=== PATIENT | male | born 1945 | race Caucasian/White ===

== ENCOUNTER → 2018-07-20 | Outpatient (CLI) | payer MEDICARE, OTHER ==
--- NOTE | 2018-07-20 12:53 | Diagnostic Imaging Report ---
Indication: Altered mental status Technique: Contiguous 5 mm thick transaxial imaging of the head obtained in a Siemens Sensation [address] scanner. Soft tissue and bone windows generated. Automatic Exposure Control was utilized. Total Dose length Product (DLP): 1369.[address] Dose Index Volume (CTDIvol): 70.38 mGy Comparison: 11/08/2011 Findings: There is mild prominence of the ventricles, basal cisterns, and cerebral sulci consistent with atrophy. Mild, nonspecific, white matter hypoattenuation is noted throughout the brain consistent with chronic small vessel disease. There is no midline shift, edema, acute hemorrhage, mass effect, or abnormal extra-axial fluid collections. Bones and extra osseous soft tissues are unremarkable. Impression: No acute intracranial bleed, mass effect or edema. Mild atrophy of the brain. Nonspecific white matter hypoattenuation probably due to chronic small vessel disease. The CT scanner at [facility] is accredited by the [employer] and the scans are performed using dose optimization techniques as appropriate to a performed exam including Automatic Exposure control.
== END | disposition home or self-care (01) ==
LOC: CAT 12:09
DX: R51 Headache (principal); G31.9 Degenerative disease of nervous system, unspecified
CPT/HCPCS: 70450

== ENCOUNTER 2018-10-17 02:26 | Inpatient (IN) | payer MEDICARE, OTHER ==
[~2018-10-17] VITALS: Ht 180.3 cm; Wt 60.8 kg
[2018-10-17] VITALS (28 sets, daily range): BP systolic 48–151; BP diastolic 21–96
[2018-10-17] MEDS ORDERED: DOCUSATE SODIU100 M2 ORAL (02:40)
[2018-10-17] MEDS ORDERED: ATORVASTATIN CA10 MG ORAL (02:40)
[2018-10-17] MEDS ORDERED: RISPERIDONE2 MG ORAL (02:40)
[2018-10-17] MEDS ORDERED: PANTOPRAZOLE SO40 MG ORAL (02:40)
[2018-10-17] MEDS ORDERED: ZYPREXA2.5 MG ORAL (02:40)
[2018-10-17] MEDS ORDERED: ASPIR 8181 MG ORAL (02:40)
[2018-10-17] MEDS ORDERED: IPRAT-ALBUT 0.5-3 ML IH (02:40)
--- NOTE | 2018-10-17 02:43 | Emergency Room Report ---
History of Present Illness General Chief Complaint: General Complaint Present Illness HPI Patient is a 73-year-old male brought in by EMS from nursing facility after a diminished oxygen saturation as well as low blood pressure. Patient reportedly had been less responsive than normal. The patient was noted to have oxygen saturation in the 50s. Allergies: Coded Allergies: No Known Allergies (Verified , 11/08/11) Nursing Documentation-PMH Hx Cardiac Problems: No - Anemia, peripheral vascular disease Hx Hypertension: Yes - blind category 5, hyperlipidemia Hx Asthma: No - PNA, difficulty walking, muscle weakness Hx COPD: Yes Hx Gastrointestinal Problems: Yes - gerd Hx Neurological Problems: Yes - schizophrenia Physical Exam Vital Signs Date Time Temp Pulse Resp B/P (MAP) Pulse Ox O2 Delivery O2 Flow Rate FiO2 10/17/18 02:25 98.2 83 14 116/71 84 Nasal Cannula 3.0 General Appearance: severe distress, cachetic, Chronically Ill Eyes: bilateral eye PERRL Neck: supple, limited range of motion Respiratory: decreased breath sounds, wheezing Cardiovascular #1: normal peripheral pulses, regular rate, rhythm, no edema Gastrointestinal: normal inspection, soft, hernia - right inguinal reducible Genitourinary: normal inspection Musculoskeletal: normal inspection, decreased range of motion Neurologic: motor weakness, other - poor alertness, incomprehensible sounds Psychiatric: other - flat affect Skin: normal inspection Procedures Critical Care Time Critical Care Time Patient had a critical medical condition which untreated could potentially result in life or limb threatening injury. Total critical care time excluding procedures approximately 45 minutes. Central Line Central Line : Consent: Emergent Central Line Lumen: triple Maximal Sterile Barrier Tech: yes cap, yes mask, yes sterile gown, yes sterile gloves, yes large sterile sheet, yes hand hygiene, yes chlorhexidine prep Central Line Postion: internal jugular (R) Anesthesia: Lidocaine cc's of anesthesia: 4 Complications: hematoma Central Line Post Position: sutured, good blood return, position confirmed w / CXR Attempts: One Patient Tolerated: Well Intubation Intubation : Consent: Emergent Intubation Method: orotracheal Tube Size (cm): 7.5 Medications: Etomidate Breath Sounds after Intubation: left greater than right Intubation Complications: no complications Post Intubation Xray: Yes Attempts: One Patient Tolerated: Well Complications: None Medical Decision Making Diagnostic Impression: Primary Impression: Respiratory failure Additional Impressions: COPD (chronic obstructive pulmonary disease) Sepsis ER Course Patient was admitted for desaturation and hypotension. Differential included but was not limited to anemia, pneumonia, pneumothorax, myocardial infarction, pericardial effusion, congestive heart failure, acidosis. Because of complexity of patient's case laboratory testing and imaging studies were ordered. The patient was noted to have CO2 retention and ABG.The BiPAP did not improve the patient's ventilation. The patient was subsequently intubated for respiratory failure.Central venous catheter was placed. The patient was started on IV fluids. This had some improvement in his blood pressure. The patient was started on mechanical ventilation. The patient was discussed with Dr. Bob Church for inpatient management due to primary care physician Labs Test 10/17/18 02:43 10/17/18 02:55 10/17/18 03:10 Arterial Blood pH 7.296 (7.350-7.450) Arterial Blood Partial Pressure CO2 99.5 mmHg (35.0-45.0) Arterial Blood Partial Pressure O2 58.5 mmHg (75.0-100.0) Arterial Blood HCO3 47.4 mmol/L (22.0-26.0) Arterial Blood Oxygen Saturation 87.9 % (95-100) Arterial Blood Base Excess 16.4 (-2-2) Chidi Test Positive White Blood Count 7.2 K/UL (4.8-10.8) Red Blood Count 4.82 M/UL (4.70-6.10) Hemoglobin 13.2 G/DL (14.2-18.0) Hematocrit 43.4 % (42.0-52.0) Mean Corpuscular Volume 90 FL (80-99) Mean Corpuscular Hemoglobin 27.4 PG (27.0-31.0) Mean Corpuscular Hemoglobin Concent 30.5 G/DL (32.0-36.0) Red Cell Distribution Width 13.6 % (11.6-14.8) Platelet Count 145 K/UL (150-450) Mean Platelet Volume 6.3 FL (6.5-10.1) Neutrophils (%) (Auto) 78.1 % (45.0-75.0) Lymphocytes (%) (Auto) 11.1 % (20.0-45.0) Monocytes (%) (Auto) 8.8 % (1.0-10.0) Eosinophils (%) (Auto) 1.3 % (0.0-3.0) Basophils (%) (Auto) 0.7 % (0.0-2.0) Sodium Level 149 MMOL/L (136-145) Potassium Level 4.7 MMOL/L (3.5-5.1) Chloride Level 104 MMOL/L (98-107) Carbon Dioxide Level 47 MMOL/L (21-32) Blood Urea Nitrogen 28 mg/dL (7-18) Creatinine 0.7 MG/DL (0.55-1.30) Estimat Glomerular Filtration Rate mL/min (>60) Glucose Level 123 MG/DL (74-106) Lactic Acid Level 1.10 mmol/L (0.4-2.0) Calcium Level 10.0 MG/DL (8.5-10.1) Phosphorus Level 3.6 MG/DL (2.5-4.9) Magnesium Level 2.1 MG/DL (1.8-2.4) Total Bilirubin 0.5 MG/DL (0.2-1.0) Aspartate Amino Transf (AST/SGOT) 19 U/L (15-37) Alanine Aminotransferase (ALT/SGPT) 28 U/L (12-78) Alkaline Phosphatase 80 U/L (46-116) Total Creatine Kinase 14 U/L (26-308) Creatine Kinase MB 0.7 NG/ML (0.0-3.6) Creatine Kinase MB Relative Index 5.0 Troponin I 0.031 ng/mL (0.000-0.056) Pro-B-Type Natriuretic Peptide 198 pg/mL (0-125) Total Protein 8.0 G/DL (6.4-8.2) Albumin 3.6 G/DL (3.4-5.0) Globulin 4.4 g/dL Albumin/Globulin Ratio 0.8 (1.0-2.7) Urine Color Pale yellow Urine Appearance Clear Urine pH 8 (4.5-8.0) Urine Specific [place] 1.010 (1.005-1.035) Urine Protein 1+ (NEGATIVE) Urine Glucose (UA) Negative (NEGATIVE) Urine Ketones Negative (NEGATIVE) Urine Blood 4+ (NEGATIVE) Urine Nitrite Negative (NEGATIVE) Urine Bilirubin Negative (NEGATIVE) Urine Urobilinogen 1 MG/DL (0.0-1.0) Urine Leukocyte Esterase 1+ (NEGATIVE) Urine RBC 30-40 /HPF (0 - 0) Urine WBC 2-4 /HPF (0 - 0) Urine Squamous Epithelial Cells None /LPF (NONE/OCC) Urine Bacteria Few /HPF (NONE) EKG Diagnostic Results Rate: tachycardiac Rhythm: NSR ST Segments: no acute changes Last Vital Signs Date Time Temp Pulse Resp B/P (MAP) Pulse Ox O2 Delivery O2 Flow Rate FiO2 10/17/18 02:25 98.2 83 14 116/71 84 Nasal Cannula 3.0 Status: unchanged Disposition: ADMITTED INPATIENT Condition: Critical Edmund Cat MD Oct 17, 2018 02:43
[2018-10-17 03:19] LABS: BASOPHILS % (AUTO) 0.7 % (0.0-2.0); EOSINOPHILS % (AUTO) 1.3 % (0.0-3.0); HEMATOCRIT 43.4 % (42.0-52.0); HEMOGLOBIN 13.2 G/DL (14.2-18.0); LYMPHOCYTES % (AUTO) 11.1 % (20.0-45.0); MEAN CORPUSCULAR VOLUME 90 FL (80-99); MONOCYTES % (AUTO) 8.8 % (1.0-10.0); NEUTROPHILS % (AUTO) 78.1 % (45.0-75.0); PLATELET COUNT 145 K/UL (150-450); RED BLOOD COUNT 4.82 M/UL (4.70-6.10); RED CELL DISTRIBUTION WIDTH 13.6 % (11.6-14.8); WHITE BLOOD COUNT 7.2 K/UL (4.8-10.8)
[2018-10-17 03:20] LABS: APPEARANCE,URINE CLEAR; BILIRUBIN, URINE NEGATIVE (NEGATIVE); COLOR,URINE PALE YELLOW; GLUCOSE, URINE (UA) NEGATIVE (NEGATIVE); KETONES,URINE NEGATIVE (NEGATIVE); LEUKOCYTE ESTERASE ,URINE 1+ (NEGATIVE); NITRITE,URINE NEGATIVE (NEGATIVE); PH,URINE 8 (4.5-8.0); PROTEIN,URINE 1+ (NEGATIVE); UROBILINOGEN,URINE 1 MG/DL (0.0-1.0)
[2018-10-17 03:41] LABS: BLOOD UREA NITROGEN 28 mg/dL (7-18); CHLORIDE 104 MMOL/L (98-107); CREATININE 0.7 MG/DL (0.55-1.30); POTASSIUM 4.7 MMOL/L (3.5-5.1); SODIUM 149 MMOL/L (136-145)
[2018-10-17 03:45] LABS: CARBON DIOXIDE 47 MMOL/L (21-32)
[2018-10-17 03:46] LABS: ALANINE AMINOTRANSFERASE 28 U/L (12-78); ALBUMIN 3.6 G/DL (3.4-5.0); ALBUMIN/GLOBULIN RATIO 0.8 (1.0-2.7); ALKALINE PHOSPHATASE 80 U/L (46-116); ASPARTATE AMINO TRANSFERASE 19 U/L (15-37); BILIRUBIN,TOTAL 0.5 MG/DL (0.2-1.0); CKMB 0.7 NG/ML (0.0-3.6); CREATINE KINASE 14 U/L (26-308); PHOSPHORUS 3.6 MG/DL (2.5-4.9)
[2018-10-17] MEDS: Etomidate 40mg/20ml Inj IV ONE ×2 (04:13→05:18)
[2018-10-17] MEDS: LORazepam Inj 2mg/ml 1ml IV ONE ×2 (05:15→05:18)
[2018-10-17] MEDS: Ampicillin/Sulbactam Sod 3 GM in NS 110 ML IVPB ONE ×2 (05:18→05:20)
--- NOTE | 2018-10-17 07:52 | Cardiology Progress Note ---
Assessment/Plan Assessment/Plan The patient is seen and examined, full consult report will be dictated shortly. Objective Last 24 Hour Vital Signs Date Time Temp Pulse Resp B/P (MAP) Pulse Ox O2 Delivery O2 Flow Rate FiO2 10/17/18 06:55 75 16 100 10/17/18 06:48 100 10/17/18 05:08 70 16 Mechanical Ventilator 100 10/17/18 05:00 70 16 100 10/17/18 04:30 100 10/17/18 04:15 70 16 48/21 Endotracheal Tube 15.0 10/17/18 02:35 83 14 Nasal Cannula 3.0 10/17/18 02:35 98.2 68 20 128/62 90 Nasal Cannula 3.0 10/17/18 02:25 98.2 83 14 116/71 84 Nasal Cannula 3.0 Intake and Output 10/16/18 10/17/18 18:59 06:59 Intake Total 1000 ml Balance 1000 ml Intake IV Total 1000 ml Laboratory Tests Test 10/17/18 02:43 10/17/18 02:55 10/17/18 03:10 10/17/18 05:07 Arterial Blood pH 7.296 (7.350-7.450) 7.407 (7.350-7.450) Arterial Blood Partial Pressure CO2 99.5 mmHg (35.0-45.0) *H 64.1 mmHg (35.0-45.0) *H Arterial Blood Partial Pressure O2 58.5 mmHg (75.0-100.0) L 597.8 mmHg (75.0-100.0) H Arterial Blood HCO3 47.4 mmol/L (22.0-26.0) *H 39.4 mmol/L (22.0-26.0) H Arterial Blood Oxygen Saturation 87.9 % (95-100) *L 99.6 % (95-100) Arterial Blood Base Excess 16.4 (-2-2) *H 12.4 (-2-2) *H Chidi Test Positive Positive White Blood Count 7.2 K/UL (4.8-10.8) Red Blood Count 4.82 M/UL (4.70-6.10) Hemoglobin 13.2 G/DL (14.2-18.0) L Hematocrit 43.4 % (42.0-52.0) Mean Corpuscular Volume 90 FL (80-99) Mean Corpuscular Hemoglobin 27.4 PG (27.0-31.0) Mean Corpuscular Hemoglobin Concent 30.5 G/DL (32.0-36.0) L Red Cell Distribution Width 13.6 % (11.6-14.8) Platelet Count 145 K/UL (150-450) L Mean Platelet Volume 6.3 FL (6.5-10.1) L Neutrophils (%) (Auto) 78.1 % (45.0-75.0) H Lymphocytes (%) (Auto) 11.1 % (20.0-45.0) L Monocytes (%) (Auto) 8.8 % (1.0-10.0) Eosinophils (%) (Auto) 1.3 % (0.0-3.0) Basophils (%) (Auto) 0.7 % (0.0-2.0) Sodium Level 149 MMOL/L (136-145) H Potassium Level 4.7 MMOL/L (3.5-5.1) Chloride Level 104 MMOL/L (98-107) Carbon Dioxide Level 47 MMOL/L (21-32) *H Blood Urea Nitrogen 28 mg/dL (7-18) H Creatinine 0.7 MG/DL (0.55-1.30) Estimat Glomerular Filtration Rate mL/min (>60) Glucose Level 123 MG/DL (74-106) H Lactic Acid Level 1.10 mmol/L (0.4-2.0) Calcium Level 10.0 MG/DL (8.5-10.1) Phosphorus Level 3.6 MG/DL (2.5-4.9) Magnesium Level 2.1 MG/DL (1.8-2.4) Total Bilirubin 0.5 MG/DL (0.2-1.0) Aspartate Amino Transf (AST/SGOT) 19 U/L (15-37) Alanine Aminotransferase (ALT/SGPT) 28 U/L (12-78) Alkaline Phosphatase 80 U/L (46-116) Total Creatine Kinase 14 U/L (26-308) L Creatine Kinase MB 0.7 NG/ML (0.0-3.6) Creatine Kinase MB Relative Index 5.0 Troponin I 0.031 ng/mL (0.000-0.056) Pro-B-Type Natriuretic Peptide 198 pg/mL (0-125) H Total Protein 8.0 G/DL (6.4-8.2) Albumin 3.6 G/DL (3.4-5.0) Globulin 4.4 g/dL Albumin/Globulin Ratio 0.8 (1.0-2.7) L Urine Color Pale yellow Urine Appearance Clear Urine pH 8 (4.5-8.0) Urine Specific [place] 1.010 (1.005-1.035) Urine Protein 1+ (NEGATIVE) H Urine Glucose (UA) Negative (NEGATIVE) Urine Ketones Negative (NEGATIVE) Urine Blood 4+ (NEGATIVE) H Urine Nitrite Negative (NEGATIVE) Urine Bilirubin Negative (NEGATIVE) Urine Urobilinogen 1 MG/DL (0.0-1.0) H Urine Leukocyte Esterase 1+ (NEGATIVE) H Urine RBC 30-40 /HPF (0 - 0) H Urine WBC 2-4 /HPF (0 - 0) Urine Squamous Epithelial Cells None /LPF (NONE/OCC) Urine Bacteria Few /HPF (NONE) Toby Sy MD Oct 17, 2018 07:52
[2018-10-17] MEDS ORDERED: D5 1/2NS 1,000 ML IV SCH (08:21)
[2018-10-17] MEDS ORDERED: Nitroglycerin Subl 0.4mg tab SL PRN (08:30)
[2018-10-17] MEDS ORDERED: Morphine Sulfate 2mg/ml Inj IVP PRN ×2 (08:30)
[2018-10-17] MEDS ORDERED: Albuterol/Ipratropium 3ml neb HHN PRN ×2 (08:30)
[2018-10-17] MEDS ORDERED: Morphine Sulfate 4mg/ml Inj (IV/IM USE ONLY) IVP PRN (08:30)
[2018-10-17] MEDS ORDERED: Sodium Chloride 500ML 500 ML IV ONE ×2 (08:45→22:30)
[2018-10-17] MEDS: Heparin 5000 units/ml inj SUBQ SCH ×2 (09:00→20:48)
--- NOTE | 2018-10-17 09:41 | Diagnostic Imaging Report ---
Indication: Altered mental status Technique: Contiguous 5 mm thick transaxial imaging of the head obtained in a Siemens Sensation [address] scanner. Soft tissue and bone windows generated. Automatic Exposure Control was utilized. Total Dose length Product (DLP): 1460.[address] Dose Index Volume (CTDIvol): 70.38 mGy Comparison: 07/20/2018 Findings: There is mild prominence of the ventricles, basal cisterns, and cerebral sulci consistent with atrophy. Mild, nonspecific, white matter hypoattenuation is noted throughout the brain consistent with chronic small vessel disease. There is no midline shift, edema, acute hemorrhage, mass effect, or abnormal extra-axial fluid collections. Bones and extra osseous soft tissues are unremarkable. Impression: No acute intracranial bleed, mass effect or edema. Mild atrophy of the brain. Nonspecific white matter hypoattenuation probably due to chronic small vessel disease. The CT scanner at [facility] is accredited by the [employer] and the scans are performed using dose optimization techniques as appropriate to a performed exam including Automatic Exposure control.
[2018-10-17] MEDS ORDERED: TYLENOL EXTRA500 MG ORAL (09:58)
[2018-10-17] MEDS ORDERED: MILK OF MA400 MG/51 ORAL (09:58)
--- NOTE | 2018-10-17 10:36 | Diagnostic Imaging Report ---
Indication: NG tube placement Comparison: None Single view of the abdomen obtained Findings: The NG tube proximal port and tip are in the stomach. IMPRESSION: NG tube in good position
--- NOTE | 2018-10-17 10:37 | Diagnostic Imaging Report ---
Indication: Dyspnea Comparison: Earlier same day A single view chest radiograph was obtained. Findings: Endotracheal tube is several centimeters above the jing in good position. There is a right jugular central venous catheter with the tip projected over the SVC. The lungs are hyperexpanded. Heart size is normal. No infiltrate identified. Deformity of the ribs in the upper part of the chest wall noted on the right. Presumably traumatic. Bones are osteopenic. IMPRESSION: Tubes and lines satisfactory. COPD
--- NOTE | 2018-10-17 11:01 | Consultation ---
History of Present Illness General Date patient seen: Oct 17, 2018 Chief Complaint: General Complaint Present Illness HPI 73-year-old male with hx of psychosis, Emphysema, brought in by EMS from nursing facility after a diminished oxygen saturation as well as low blood pressure. Patient reportedly had been less responsive than normal. The patient was noted to have oxygen saturation in the 50s. He was intubated in ER and received Iv fluids to support the BP and transferred to ICU. Allergies: Coded Allergies: No Known Allergies (Verified , 11/08/11) Medication History Scheduled Aspirin* (Aspir 81*), 81 MG ORAL DAILY, (Reported) Atorvastatin Calcium* (Lipitor*), 10 MG ORAL BEDTIME, (Reported) Docusate Sodium (Docusate Sodium), 100 MG ORAL TWICE A DAY, (Reported) Ipratropium/Albuterol Sulfate (Iprat-Albut 0.5-3(2.5) Mg/3 Ml), 3 ML IH TID, ( Reported) Magnesium Hydroxide* (Milk Of Magnesia*), 30 ML ORAL DAILY, (Reported) Olanzapine* (Zyprexa*), 2.5 MG ORAL DAILY, (Reported) Pantoprazole* (Pantoprazole*), 40 MG ORAL DAILY, (Reported) Risperidone (Risperidone), 2 MG ORAL BID, (Reported) Scheduled PRN Acetaminophen* (Tylenol Extra Strength*), 650 MG ORAL Q4HR PRN for Mild Pain/ Temp > 100.5, (Reported) Patient History Healthcare decision maker Charis Ellislacye (sister) Resuscitation status Full Code Advanced Directive on File No Past Medical/Surgical History Past Medical/Surgical History: (1) Psychoses (2) COPD (chronic obstructive pulmonary disease) Review of Systems All Other Systems: negative except mentioned in HPI Physical Exam General Appearance: cachetic Lines, tubes and drains: peripheral HEENT: normocephalic, atraumatic Respiratory/Chest: chest wall non-tender, rhonchi - left, rhonchi - right Breasts: no masses Cardiovascular/Chest: normal rate, regularly irregular Genitourinary/Rectal: normal genital exam Extremities: normal range of motion, non-tender Last 24 Hour Vital Signs Date Time Temp Pulse Resp B/P (MAP) Pulse Ox O2 Delivery O2 Flow Rate FiO2 10/17/18 10:28 30 10/17/18 10:00 66 16 100/51 (67) 94 10/17/18 09:23 77 16 50 10/17/18 09:15 50 10/17/18 09:00 62 16 88/52 (64) 100 10/17/18 08:00 65 15 91/39 (56) 95 10/17/18 07:22 50 10/17/18 07:00 98.4 63 18 104/59 (74) 93 10/17/18 07:00 Endotracheal Tube 10/17/18 06:55 75 16 100 10/17/18 06:48 100 10/17/18 05:08 70 16 Mechanical Ventilator 100 10/17/18 05:00 70 16 100 10/17/18 04:30 100 10/17/18 04:15 70 16 48/21 Endotracheal Tube 15.0 10/17/18 02:35 83 14 Nasal Cannula 3.0 10/17/18 02:35 98.2 68 20 128/62 90 Nasal Cannula 3.0 10/17/18 02:25 98.2 83 14 116/71 84 Nasal Cannula 3.0 Intake and Output 10/16/18 10/17/18 18:59 06:59 Intake Total 1000 ml Balance 1000 ml Intake IV Total 1000 ml Laboratory Tests Test 10/17/18 02:43 10/17/18 02:55 10/17/18 03:10 10/17/18 05:07 Arterial Blood pH 7.296 (7.350-7.450) 7.407 (7.350-7.450) Arterial Blood Partial Pressure CO2 99.5 mmHg (35.0-45.0) *H 64.1 mmHg (35.0-45.0) *H Arterial Blood Partial Pressure O2 58.5 mmHg (75.0-100.0) L 597.8 mmHg (75.0-100.0) H Arterial Blood HCO3 47.4 mmol/L (22.0-26.0) *H 39.4 mmol/L (22.0-26.0) H Arterial Blood Oxygen Saturation 87.9 % (95-100) *L 99.6 % (95-100) Arterial Blood Base Excess 16.4 (-2-2) *H 12.4 (-2-2) *H Chidi Test Positive Positive White Blood Count 7.2 K/UL (4.8-10.8) Red Blood Count 4.82 M/UL (4.70-6.10) Hemoglobin 13.2 G/DL (14.2-18.0) L Hematocrit 43.4 % (42.0-52.0) Mean Corpuscular Volume 90 FL (80-99) Mean Corpuscular Hemoglobin 27.4 PG (27.0-31.0) Mean Corpuscular Hemoglobin Concent 30.5 G/DL (32.0-36.0) L Red Cell Distribution Width 13.6 % (11.6-14.8) Platelet Count 145 K/UL (150-450) L Mean Platelet Volume 6.3 FL (6.5-10.1) L Neutrophils (%) (Auto) 78.1 % (45.0-75.0) H Lymphocytes (%) (Auto) 11.1 % (20.0-45.0) L Monocytes (%) (Auto) 8.8 % (1.0-10.0) Eosinophils (%) (Auto) 1.3 % (0.0-3.0) Basophils (%) (Auto) 0.7 % (0.0-2.0) Sodium Level 149 MMOL/L (136-145) H Potassium Level 4.7 MMOL/L (3.5-5.1) Chloride Level 104 MMOL/L (98-107) Carbon Dioxide Level 47 MMOL/L (21-32) *H Blood Urea Nitrogen 28 mg/dL (7-18) H Creatinine 0.7 MG/DL (0.55-1.30) Estimat Glomerular Filtration Rate mL/min (>60) Glucose Level 123 MG/DL (74-106) H Lactic Acid Level 1.10 mmol/L (0.4-2.0) Calcium Level 10.0 MG/DL (8.5-10.1) Phosphorus Level 3.6 MG/DL (2.5-4.9) Magnesium Level 2.1 MG/DL (1.8-2.4) Total Bilirubin 0.5 MG/DL (0.2-1.0) Aspartate Amino Transf (AST/SGOT) 19 U/L (15-37) Alanine Aminotransferase (ALT/SGPT) 28 U/L (12-78) Alkaline Phosphatase 80 U/L (46-116) Total Creatine Kinase 14 U/L (26-308) L Creatine Kinase MB 0.7 NG/ML (0.0-3.6) Creatine Kinase MB Relative Index 5.0 Troponin I 0.031 ng/mL (0.000-0.056) Pro-B-Type Natriuretic Peptide 198 pg/mL (0-125) H Total Protein 8.0 G/DL (6.4-8.2) Albumin 3.6 G/DL (3.4-5.0) Globulin 4.4 g/dL Albumin/Globulin Ratio 0.8 (1.0-2.7) L Urine Color Pale yellow Urine Appearance Clear Urine pH 8 (4.5-8.0) Urine Specific [place] 1.010 (1.005-1.035) Urine Protein 1+ (NEGATIVE) H Urine Glucose (UA) Negative (NEGATIVE) Urine Ketones Negative (NEGATIVE) Urine Blood 4+ (NEGATIVE) H Urine Nitrite Negative (NEGATIVE) Urine Bilirubin Negative (NEGATIVE) Urine Urobilinogen 1 MG/DL (0.0-1.0) H Urine Leukocyte Esterase 1+ (NEGATIVE) H Urine RBC 30-40 /HPF (0 - 0) H Urine WBC 2-4 /HPF (0 - 0) Urine Squamous Epithelial Cells None /LPF (NONE/OCC) Urine Bacteria Few /HPF (NONE) Test 10/17/18 10:20 Arterial Blood pH 7.510 (7.350-7.450) Arterial Blood Partial Pressure CO2 37.8 mmHg (35.0-45.0) Arterial Blood Partial Pressure O2 227.5 mmHg (75.0-100.0) H Arterial Blood HCO3 30.0 mmol/L (22.0-26.0) H Arterial Blood Oxygen Saturation 97.9 % (95-100) Arterial Blood Base Excess 6.7 (-2-2) H Chidi Test Positive Microbiology Date/Time Source Procedure Growth Status 10/17/18 06:45 Rectum Received Height (Feet): 5 Height (Inches): 11.00 Weight (Pounds): 125 Medications Current Medications Medications (Trade) Dose Ordered Sig/Nkechi Route PRN Reason Start Time Stop Time Status Last Admin Dose Admin Albuterol/ Ipratropium (Albuterol/ Ipratropium) 3 ml Q4H PRN HHN dyspnea 10/17/18 08:30 10/22/18 08:29 Dextrose (Dextrose 50%) 25 ml Q30M PRN IV Hypoglycemia 10/17/18 08:30 11/16/18 08:23 Dextrose (Dextrose 50%) 50 ml Q30M PRN IV hypoglycemia 10/17/18 08:30 11/16/18 08:29 Dextrose/Sodium Chloride 1,000 ml @ 50 mls/hr Q20H IV 10/17/18 08:21 11/16/18 08:20 10/17/18 09:10 Heparin Sodium (Porcine) (Heparin 5000 units/ml) 5,000 units EVERY 12 HOURS SUBQ 10/17/18 09:00 11/16/18 08:59 Insulin Aspart (NovoLOG) BEFORE MEALS AND HS SUBQ 10/17/18 11:30 11/16/18 11:29 Lorazepam (Ativan 2mg/ml 1ml) 2 mg Q4H PRN IV For Anxiety 10/17/18 08:30 10/24/18 08:29 Methylprednisolone Sodium Succinate (Solu-MEDROL) 60 mg EVERY 6 HOURS IV 10/17/18 12:00 11/16/18 11:59 Morphine Sulfate (Morphine Sulfate) 2 mg Q4H PRN IVP MODERATE PAIN 10/17/18 08:30 10/24/18 08:29 Morphine Sulfate (Morphine Sulfate) 4 mg Q4H PRN IVP SEVERE PAIN 10/17/18 08:30 10/24/18 08:29 Nitroglycerin (Ntg) 0.4 mg Q5M X 3 DOSES PRN SL Prn Chest Pain 10/17/18 08:30 11/16/18 08:29 Norepinephrine Bitartrate 4 mg/ Dextrose 250 ml @ 0 mls/hr Q24H IV 10/17/18 06:00 11/16/18 05:59 Ondansetron HCl (Zofran) 4 mg Q6H PRN IVP Nausea & Vomiting 10/17/18 08:30 11/16/18 08:29 Piperacillin Sod/ Tazobactam Sod 3.375 gm/Sodium Chloride 110 ml @ 27.5 mls/hr EVERY 8 HOURS IVPB 10/17/18 14:00 10/22/18 13:59 Assessment/Plan Problem List: (1) Acute respiratory failure ICD Codes: J96.00 - Acute respiratory failure, unspecified whether with hypoxia or hypercapnia SNOMED: 58256424 (2) COPD (chronic obstructive pulmonary disease) ICD Codes: J44.9 - Chronic obstructive pulmonary disease, unspecified SNOMED: 99840352 (3) Protein-calorie malnutrition, severe ICD Codes: E43 - Unspecified severe protein-calorie malnutrition SNOMED: 322320394 (4) Psychoses ICD Codes: F29 - Unspecified psychosis not due to a substance or known physiological condition SNOMED: 21950981 Respiratory: monitor respiratory rate, adjust FIO2, CXR Cardiac: continue to monitor HR/BP Renal: F/U I&O, check electrolytes Infectious Disease: check cultures, continue antibiotics Gastrointestinal: start feedings Endocrine: monitor blood sugar Hematologic: monitor H/H Neurologic: PRN Ativan Affect: PRN ativan Prophylaxis: Protonix Time Spent (Minutes): 40 Notes Reviewed: cardio Discussed with: consultants Melquiades Junior MD Oct 17, 2018 11:01
--- NOTE | 2018-10-17 11:46 | Diagnostic Imaging Report ---
Indication: Dyspnea Comparison: 11/12/2011 A single view chest radiograph was obtained. Findings: Lungs are hyperexpanded. Heart size is normal. Aorta is ectatic. There is deformity of the right upper chest wall again noted. IMPRESSION: No change from the prior examination. COPD
[2018-10-17] MEDS: Solu-MEDROL 125mg Inj IV SCH ×3 (12:15→23:40)
[2018-10-17] MEDS: NovoLOG Insulin Flexpen SUBQ SCH ×3 (12:16→20:17)
[2018-10-17] MEDS ORDERED: Piperacillin/Tazobactam 2.25 GM in D5W 55 ML IV SCH (14:00)
[2018-10-17] MEDS ORDERED: Zoysn 3.37gm in NS 100ML IVPB SCH (14:00)
--- NOTE | 2018-10-17 14:02 | Consultation ---
History of Present Illness General Date patient seen: Oct 17, 2018 Chief Complaint: General Complaint Present Illness HPI 73 y/o M with hx of schizophrenia, emphysema/COPD, blindness, PVD, HLD, PNA, GERD, SNF resident presents to ED on 10/17 with hypoxia to 50s, hypotension and lethargy. In the ER was intubated; BP responded to IVFs. Admitted to ICU. Afebrile no leukocytosis CXR with no acute disease. Allergies: Coded Allergies: No Known Allergies (Verified , 11/08/11) Medication History Scheduled Aspirin* (Aspir 81*), 81 MG ORAL DAILY, (Reported) Atorvastatin Calcium* (Lipitor*), 10 MG ORAL BEDTIME, (Reported) Docusate Sodium (Docusate Sodium), 100 MG ORAL TWICE A DAY, (Reported) Ipratropium/Albuterol Sulfate (Iprat-Albut 0.5-3(2.5) Mg/3 Ml), 3 ML IH TID, ( Reported) Magnesium Hydroxide* (Milk Of Magnesia*), 30 ML ORAL DAILY, (Reported) Olanzapine* (Zyprexa*), 2.5 MG ORAL DAILY, (Reported) Pantoprazole* (Pantoprazole*), 40 MG ORAL DAILY, (Reported) Risperidone (Risperidone), 2 MG ORAL BID, (Reported) Scheduled PRN Acetaminophen* (Tylenol Extra Strength*), 650 MG ORAL Q4HR PRN for Mild Pain/ Temp > 100.5, (Reported) Patient History Healthcare decision maker Farnaz Vizcaino (sister) Resuscitation status Full Code Advanced Directive on File No Patient History Narrative Pmhx: as above Shx: reviewed Fhx: non contributory Review of Systems All Other Systems: negative except mentioned in HPI Physical Exam Physical Exam Narrative General Appearance: severe distress, cachetic, Chronically Ill Neck: limited range of motion Respiratory: decreased breath sounds, wheezing Cardiovascular #1: normal peripheral pulses, regular rate, rhythm, no edema Gastrointestinal: normal inspection Neurologic: normal inspection, alert, oriented x3 Skin: normal inspection Last 24 Hour Vital Signs Date Time Temp Pulse Resp B/P (MAP) Pulse Ox O2 Delivery O2 Flow Rate FiO2 10/17/18 13:00 99.3 66 16 101/64 (76) 100 10/17/18 12:55 67 16 30 10/17/18 12:00 Endotracheal Tube 10/17/18 12:00 65 16 91/56 (68) 98 10/17/18 11:00 70 17 88/50 (63) 98 10/17/18 10:35 64 16 30 10/17/18 10:28 30 10/17/18 10:00 66 16 100/51 (67) 94 10/17/18 09:23 77 16 50 10/17/18 09:15 50 10/17/18 09:00 62 16 88/52 (64) 100 10/17/18 08:05 66 10/17/18 08:00 65 15 91/39 (56) 95 10/17/18 07:22 50 10/17/18 07:00 98.4 63 18 104/59 (74) 93 10/17/18 07:00 Endotracheal Tube 10/17/18 06:55 75 16 100 10/17/18 06:48 100 10/17/18 05:08 70 16 Mechanical Ventilator 100 10/17/18 05:00 70 16 100 10/17/18 04:30 100 10/17/18 04:15 70 16 48/21 Endotracheal Tube 15.0 10/17/18 02:35 83 14 Nasal Cannula 3.0 10/17/18 02:35 98.2 68 20 128/62 90 Nasal Cannula 3.0 10/17/18 02:25 98.2 83 14 116/71 84 Nasal Cannula 3.0 Intake and Output 10/16/18 10/17/18 19:00 07:00 Intake Total 1000 ml Balance 1000 ml Intake IV Total 1000 ml Laboratory Tests Test 10/17/18 02:43 10/17/18 02:55 10/17/18 03:10 10/17/18 05:07 Arterial Blood pH 7.296 (7.350-7.450) 7.407 (7.350-7.450) Arterial Blood Partial Pressure CO2 99.5 mmHg (35.0-45.0) *H 64.1 mmHg (35.0-45.0) *H Arterial Blood Partial Pressure O2 58.5 mmHg (75.0-100.0) L 597.8 mmHg (75.0-100.0) H Arterial Blood HCO3 47.4 mmol/L (22.0-26.0) *H 39.4 mmol/L (22.0-26.0) H Arterial Blood Oxygen Saturation 87.9 % (95-100) *L 99.6 % (95-100) Arterial Blood Base Excess 16.4 (-2-2) *H 12.4 (-2-2) *H Chidi Test Positive Positive White Blood Count 7.2 K/UL (4.8-10.8) Red Blood Count 4.82 M/UL (4.70-6.10) Hemoglobin 13.2 G/DL (14.2-18.0) L Hematocrit 43.4 % (42.0-52.0) Mean Corpuscular Volume 90 FL (80-99) Mean Corpuscular Hemoglobin 27.4 PG (27.0-31.0) Mean Corpuscular Hemoglobin Concent 30.5 G/DL (32.0-36.0) L Red Cell Distribution Width 13.6 % (11.6-14.8) Platelet Count 145 K/UL (150-450) L Mean Platelet Volume 6.3 FL (6.5-10.1) L Neutrophils (%) (Auto) 78.1 % (45.0-75.0) H Lymphocytes (%) (Auto) 11.1 % (20.0-45.0) L Monocytes (%) (Auto) 8.8 % (1.0-10.0) Eosinophils (%) (Auto) 1.3 % (0.0-3.0) Basophils (%) (Auto) 0.7 % (0.0-2.0) Sodium Level 149 MMOL/L (136-145) H Potassium Level 4.7 MMOL/L (3.5-5.1) Chloride Level 104 MMOL/L (98-107) Carbon Dioxide Level 47 MMOL/L (21-32) *H Blood Urea Nitrogen 28 mg/dL (7-18) H Creatinine 0.7 MG/DL (0.55-1.30) Estimat Glomerular Filtration Rate mL/min (>60) Glucose Level 123 MG/DL (74-106) H Lactic Acid Level 1.10 mmol/L (0.4-2.0) Calcium Level 10.0 MG/DL (8.5-10.1) Phosphorus Level 3.6 MG/DL (2.5-4.9) Magnesium Level 2.1 MG/DL (1.8-2.4) Total Bilirubin 0.5 MG/DL (0.2-1.0) Aspartate Amino Transf (AST/SGOT) 19 U/L (15-37) Alanine Aminotransferase (ALT/SGPT) 28 U/L (12-78) Alkaline Phosphatase 80 U/L (46-116) Total Creatine Kinase 14 U/L (26-308) L Creatine Kinase MB 0.7 NG/ML (0.0-3.6) Creatine Kinase MB Relative Index 5.0 Troponin I 0.031 ng/mL (0.000-0.056) Pro-B-Type Natriuretic Peptide 198 pg/mL (0-125) H Total Protein 8.0 G/DL (6.4-8.2) Albumin 3.6 G/DL (3.4-5.0) Globulin 4.4 g/dL Albumin/Globulin Ratio 0.8 (1.0-2.7) L Urine Color Pale yellow Urine Appearance Clear Urine pH 8 (4.5-8.0) Urine Specific [place] 1.010 (1.005-1.035) Urine Protein 1+ (NEGATIVE) H Urine Glucose (UA) Negative (NEGATIVE) Urine Ketones Negative (NEGATIVE) Urine Blood 4+ (NEGATIVE) H Urine Nitrite Negative (NEGATIVE) Urine Bilirubin Negative (NEGATIVE) Urine Urobilinogen 1 MG/DL (0.0-1.0) H Urine Leukocyte Esterase 1+ (NEGATIVE) H Urine RBC 30-40 /HPF (0 - 0) H Urine WBC 2-4 /HPF (0 - 0) Urine Squamous Epithelial Cells None /LPF (NONE/OCC) Urine Bacteria Few /HPF (NONE) Test 10/17/18 10:20 Arterial Blood pH 7.510 (7.350-7.450) Arterial Blood Partial Pressure CO2 37.8 mmHg (35.0-45.0) Arterial Blood Partial Pressure O2 227.5 mmHg (75.0-100.0) H Arterial Blood HCO3 30.0 mmol/L (22.0-26.0) H Arterial Blood Oxygen Saturation 97.9 % (95-100) Arterial Blood Base Excess 6.7 (-2-2) H Chidi Test Positive Microbiology Date/Time Source Procedure Growth Status 10/17/18 06:45 Rectum Received Height (Feet): 5 Height (Inches): 11.00 Weight (Pounds): 125 Medications Current Medications Medications (Trade) Dose Ordered Sig/Nkechi Route PRN Reason Start Time Stop Time Status Last Admin Dose Admin Albuterol/ Ipratropium (Albuterol/ Ipratropium) 3 ml Q4H PRN HHN dyspnea 10/17/18 08:30 10/22/18 08:29 Dextrose (Dextrose 50%) 25 ml Q30M PRN IV Hypoglycemia 10/17/18 08:30 11/16/18 08:23 Dextrose (Dextrose 50%) 50 ml Q30M PRN IV hypoglycemia 10/17/18 08:30 11/16/18 08:29 Dextrose/Sodium Chloride 1,000 ml @ 50 mls/hr Q20H IV 10/17/18 08:21 11/16/18 08:20 10/17/18 09:10 Heparin Sodium (Porcine) (Heparin 5000 units/ml) 5,000 units EVERY 12 HOURS SUBQ 10/17/18 09:00 11/16/18 08:59 Insulin Aspart (NovoLOG) BEFORE MEALS AND HS SUBQ 10/17/18 11:30 11/16/18 11:29 10/17/18 12:16 Lorazepam (Ativan 2mg/ml 1ml) 2 mg Q4H PRN IV For Anxiety 10/17/18 08:30 10/24/18 08:29 Methylprednisolone Sodium Succinate (Solu-MEDROL) 60 mg EVERY 6 HOURS IV 10/17/18 12:00 11/16/18 11:59 10/17/18 12:15 Morphine Sulfate (Morphine Sulfate) 2 mg Q4H PRN IVP MODERATE PAIN 10/17/18 08:30 10/24/18 08:29 Morphine Sulfate (Morphine Sulfate) 4 mg Q4H PRN IVP SEVERE PAIN 10/17/18 08:30 10/24/18 08:29 Nitroglycerin (Ntg) 0.4 mg Q5M X 3 DOSES PRN SL Prn Chest Pain 10/17/18 08:30 11/16/18 08:29 Norepinephrine Bitartrate 4 mg/ Dextrose 250 ml @ 0 mls/hr Q24H IV 10/17/18 06:00 11/16/18 05:59 Ondansetron HCl (Zofran) 4 mg Q6H PRN IVP Nausea & Vomiting 10/17/18 08:30 11/16/18 08:29 Piperacillin Sod/ Tazobactam Sod 3.375 gm/Sodium Chloride 110 ml @ 27.5 mls/hr EVERY 8 HOURS IVPB 10/17/18 14:00 10/22/18 13:59 10/17/18 13:47 Assessment/Plan Assessment/Plan Abx: Unasyn x 1 10/17 Zosyn 10/17- Assessment: Acute hypoxic respiratory s/p intubation 10/17 COPD exacerbation- no evidence of PNA. Ro Influenza Afebrile No leukocytosis schizophrenia emphysema/COPD blindness PVD HLD PNA GERD SNF resident Plan: -Switch Zosyn #1 to Levaquin for COPD exacerbation -Empiric Tamiflu pending influenza sc -f/u cx -Monitor CBC/CMP, temperatures -ETT care -Aspiration precautions Thank you for this consultation. Will continue to follow along with you. Discussed with Chio Stephens M.D. Oct 17, 2018 14:02
--- NOTE | 2018-10-17 15:15 | Consultation ---
DATE OF CONSULTATION: 10/17/2018 CARDIOLOGY CONSULTATION CONSULTING PHYSICIAN: Toby Sy M.D. REFERRING PHYSICIAN: Bob Church D.O. REASON FOR CONSULTATION: Management of shortness of breath. HISTORY OF PRESENT ILLNESS: The patient is a very unfortunate 73-year-old gentleman, brought by EMS from nursing facility after he was found to have shortness of breath with diminished oxygen saturation as well as hypotension. The patient also appears to be less responsive than usual. His oxygen saturation was in 50s. Upon arrival to the emergency department, blood pressure was 116/71 mmHg and heart rate of 83, oxygen saturation was 84 on 3 liters. The patient had a emergent intubation in the emergency department for severe hypoxemic hypercarbic respiratory failure. Initial 12-lead electrocardiogram revealed sinus rhythm at a rate of 70 with bifascicular block including right bundle-branch block as well as left anterior fascicular block. The patient was diagnosed with the acute exacerbation of COPD and was transferred to intensive care unit for further management and assessment. Cardiology consultation was made at request of Dr. Church for assessment of dyspnea and rule out. PAST MEDICAL HISTORY: Anemia, COPD, peripheral vascular disease, blindness, hyperlipidemia, history of pneumonia, history of gait imbalance, history of gastroesophageal reflux disease, history of schizophrenia. PAST SURGICAL HISTORY: No surgeries done in the past. MEDICATIONS: List of medications in the correction facility includes aspirin 81 mg p.o. daily, atorvastatin 10 mg p.o. at bedtime, Colace 100 mg p.o. twice daily, Atrovent and albuterol three times daily, Zyprexa 2.5 mg p.o. daily, pantoprazole 40 mg p.o. daily, and risperidone 2 mg p.o. twice daily. ALLERGIES: No known drug allergies. FAMILY HISTORY: No premature coronary artery disease or arrhythmogenic in the first-degree relatives according to the records. REVIEW OF SYSTEMS: Currently the patient is intubated. A 12-system review cannot be obtained. PHYSICAL EXAMINATION: VITAL SIGNS: Blood pressure was 116/71, pulse of 83, respiration 14, temperature 98.2 degrees Fahrenheit, and O2 saturation 94% on 3 liters of oxygen. GENERAL: The patient is a chronically ill-appearing, currently intubated, awake, not following commands, not maintaining eye contact. HEENT: Atraumatic and normocephalic. Anicteric. Bitemporal wasting. NECK: JVP cannot be assessed due to positive inspiratory pressure from the ventilator. No carotid bruit. CVS: Normal S1 and S2. Regular rate and rhythm. No murmurs, gallops, or rubs. Distant heart sounds. PMI is at fourth intercostal space in midclavicular line. LUNGS: Diminished breath sounds throughout both lungs. ABDOMEN: Soft, nontender, and nondistended. No hepatosplenomegaly. Positive bowel sounds. EXTREMITIES: No evidence of edema, clubbing, or cyanosis. LABORATORY FINDINGS: WBC 7.2, hemoglobin 13.2, hematocrit of 43.4, and platelet count 145. Sodium 149, potassium is 4.7, chloride 104, bicarbonate 47, BUN of 28, creatinine 0.7, glucose is 123 and calcium is 10. Magnesium 2.1. Troponin-I 0.031. ProBNP is 198. Blood gas was a pH of 7.29, pCO2 of 99.5, pO2 58.5, bicarbonate 47.4, O2 saturation 87.9%. DIAGNOSTIC DATA: Chest x-ray shows a very small cardiac silhouette, hyperinflated lung, emphysematous changes, no evidence of pulmonary edema. ASSESSMENT AND PLAN: The patient is a 73-year-old gentleman seen in Cardiology consultation at request of Dr. Church. 1. Dyspnea most likely secondary to acute exacerbation of COPD leading to acute respiratory failure. The patient is hypercapnic, hypoxic, respiratory failure required intubation earlier. We will obtain 2D echocardiography for assessment of LV systolic and diastolic function and evaluation of hemodynamics. It appears that the patient has some evidence of free water deficit according to the electrolyte that may require hydration. 2. The patient benefit from a normal saline 500 mL IV bolus and then we will start hypotonic fluid and half NS at 60 mL per hour. 3. We will continue with daily chemistry and try to keep the mean arterial pressure above 65 mmHg. Total amount of time spent in evaluation of this patient in the intensive care unit of [facility] review of the old records, discussing the plan of care with the nursing staff and primary care physician was . I would like to thank, Dr. Church, for allowing me to participate in the care of this patient. Toby Sy M.D. DR: Jennifer JOB#: [id number] CC:
--- NOTE | 2018-10-17 16:01 | Cardiology Report ---
APPROVED REPORT EXAM: Two-dimensional and M-mode echocardiogram with Doppler and color Doppler. INDICATION Ventricular function M-Mode DIMENSIONS IVSd1.2 (0.7-1.1cm)Left Atrium (MM)2.9 (1.6-4.0cm) LVDd3.1 (3.5-5.6cm)Aortic Root3.0 (2.0-3.7cm) PWd1.2 (0.7-1.1cm)Aortic Cusp Exc.1.9 (1.5-2.0cm) LVDs1.4 (2.5-4.0cm) PWs1.6 cm Technically difficult and limited study due to poor acoustic windows. All images obtained from subcostal view. Study quality precludes accurate assessment of regional wall motion. Normal left ventricular chamber size, systolic function and wall motion. Left ventricular ejection fraction estimated to be 65 %. Mild left ventricular hypertrophy. No evidence of pericardial effusion. All other cardiac chamber sizes appear to be within normal limits. Focal aortic valve sclerosis with adequate cusp excursion. Mildly thickened mitral valve leaflets with normal excursion. Mildy mitral annulus and aortic root calcification. Normal pulmonic valve structure. Normal tricuspid valve structure. IVC dilated at 2.8 cm without physiological collapse, suggestive of increased RA pressure. A color flow and spectral Doppler study was performed and revealed: No aortic insufficiency. Trace mitral regurgitation. Mitral diastolic velocities suggest mild left ventricular diastolic dysfunction (Grade I). Mild tricuspid regurgitation. Tricuspid systolic velocities suggests peak right ventricular systolic pressure of 51 mmHg, consistent with moderate pulmonary hypertension. No pulmonic regurgitation present.
--- NOTE | 2018-10-17 17:35 | Cardiology Report ---
APPROVED REPORT EKG Measurement Heart [id number] IL [id number] [id number] Normal sinus rhythm Left axis deviation Septal infarct, age undetermined Abnormal ECG
[2018-10-17] MEDS: Oseltamivir 75mg cap ORAL SCH (20:16)
[2018-10-17] MEDS: DOPamine 400mg/250ml 250 ML IV SCH (23:17)
--- NOTE | 2018-10-17 23:30 | History and Physical Report ---
DATE OF ADMISSION: 10/17/2018 TIME SEEN: On 10/17/2018 at 2 p.m. CONSULTANTS: 1. Melquiades Junior M.D. 2. Toby Sy M.D. 3. Rakan Solomon M.D. CHIEF COMPLAINT: Respiratory failure, shock, COPD. BRIEF HISTORY: This is a 73-year-old female from [facility] who presents to [facility] with history of increased shortness of breath for two days, diagnosed with exacerbation of COPD and went into respiratory failure, and is currently intubated, admitted to ICU. The patient is intubated, sedated, lethargic in ICU. Therefore, history is obtained from the chart. REVIEW OF SYSTEMS: Unavailable. PAST MEDICAL HISTORY: Includes COPD, psychosis, malnutrition. PAST SURGICAL HISTORY: Unknown. ALLERGIES: Denies. MEDICATIONS: Include Zosyn, methylprednisolone, insulin, heparin, albuterol, nitroglycerin, lorazepam, morphine, and norepinephrine. SOCIAL HISTORY: Unable to obtain secondary to the patient's condition. PHYSICAL EXAMINATION: GENERAL: Calm, lethargic, intubated, sedated in bed, nonverbal, VITAL SIGNS: Show temperature is 98.9, pulse 66, respirations 16, blood pressure 109/64. CARDIOVASCULAR: No murmur. LUNGS: Poor air exchange. ABDOMEN: Bowel sounds distant. EXTREMITIES: Show no cyanosis, clubbing, or edema. NEUROLOGIC: The patient is flaccid in bed, not responding to verbal commands. LABORATORY DATA: Laboratories at this time show hemoglobin 13.2, platelets 145,000, otherwise CBC is normal. Sodium 149, CO2 47, BUN 28, glucose 123, otherwise BMP is normal. Urinalysis shows 4+ blood, 1+ leukocyte esterase. ASSESSMENT: Respiratory failure, COPD exacerbation, UTI, sepsis, shock, psychosis, malnutrition. PLAN: Vent per Pulmonary. Antibiotic per Infectious Disease. Blood pressure control. Dietary followup. Resume home medications. CBC and BMP in the morning. Bob Church D.O. DR: Dereck JOB#: [id number] CC:
[2018-10-17] MEDS: LORazepam Inj 2mg/ml 1ml IV PRN (23:39)
[2018-10-18] VITALS (47 sets, daily range): BP systolic 77–135; BP diastolic 39–86
[2018-10-18] MEDS: D5 1/2NS 1,000 ML IV SCH ×2 (03:30→20:10)
[2018-10-18 05:03] LABS: HEMATOCRIT 37.6 % (42.0-52.0); HEMOGLOBIN 11.8 G/DL (14.2-18.0); MEAN CORPUSCULAR VOLUME 88 FL (80-99); PLATELET COUNT 107 K/UL (150-450); RED BLOOD COUNT 4.27 M/UL (4.70-6.10); RED CELL DISTRIBUTION WIDTH 13.7 % (11.6-14.8); WHITE BLOOD COUNT 7.1 K/UL (4.8-10.8)
[2018-10-18 05:22] LABS: ALANINE AMINOTRANSFERASE 22 U/L (12-78); ALBUMIN/GLOBULIN RATIO 0.8 (1.0-2.7); ALKALINE PHOSPHATASE 67 U/L (46-116); ANION GAP 7 mmol/L (5-15); ASPARTATE AMINO TRANSFERASE 26 U/L (15-37); BILIRUBIN,TOTAL 0.9 MG/DL (0.2-1.0); BLOOD UREA NITROGEN 25 mg/dL (7-18); CALCIUM 9.5 MG/DL (8.5-10.1); CARBON DIOXIDE 29 MMOL/L (21-32); CHLORIDE 112 MMOL/L (98-107); CREATININE 0.6 MG/DL (0.55-1.30); PHOSPHORUS 1.7 MG/DL (2.5-4.9); POTASSIUM 3.4 MMOL/L (3.5-5.1); SODIUM 148 MMOL/L (136-145)
[2018-10-18] MEDS: Solu-MEDROL 125mg Inj IV SCH (05:52)
[2018-10-18] MEDS: NovoLOG Insulin Flexpen SUBQ SCH ×4 (05:54→21:08)
[2018-10-18] MEDS: Oseltamivir 75mg cap ORAL SCH (09:46)
[2018-10-18] MEDS: Heparin 5000 units/ml inj SUBQ SCH ×2 (10:13→20:58)
--- NOTE | 2018-10-18 10:21 | Pulmonolgy Critical Care Note ---
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, renal Discussed with: nurses, consultants, case monitormanager file - Objective Last 24 Hour Vital Signs Date Time Temp Pulse Resp B/P (MAP) Pulse Ox O2 Delivery O2 Flow Rate FiO2 10/18/18 09:19 51 16 25 10/18/18 08:00 Endotracheal Tube 10/18/18 08:00 25 10/18/18 07:02 50 16 25 10/18/18 06:30 49 16 113/52 (72) 100 10/18/18 06:00 112/52 10/18/18 06:00 49 16 122/55 (77) 100 10/18/18 05:30 51 16 116/57 (76) 100 10/18/18 05:09 58 18 25 10/18/18 05:00 52 16 105/55 (72) 100 10/18/18 05:00 114/54 10/18/18 04:30 56 17 108/47 (67) 100 10/18/18 04:00 Endotracheal Tube 10/18/18 04:00 25 10/18/18 04:00 108/47 10/18/18 04:00 54 10/18/18 04:00 98.7 57 16 112/52 (72) 100 10/18/18 03:30 52 16 124/62 (82) 100 10/18/18 03:30 62 19 108/47 (67) 100 10/18/18 03:20 55 16 25 10/18/18 03:00 52 16 124/62 (82) 100 10/18/18 03:00 124/62 10/18/18 02:30 54 16 122/59 (80) 100 10/18/18 02:00 144/62 10/18/18 02:00 48 16 120/59 (79) 99 11/29/18 01:30 53 18 124/54 (77) 99 10/18/18 01:00 55 18 125/57 (79) 99 10/18/18 01:00 118/54 10/18/18 00:49 52 16 25 10/18/18 00:33 54 16 135/59 (84) 100 10/18/18 00:00 58 16 112/50 (70) 100 10/18/18 00:00 111/53 10/18/18 00:00 Endotracheal Tube 10/17/18 23:45 66 21 112/51 (71) 100 10/17/18 23:30 59 17 120/65 (83) 100 10/17/18 23:17 116/49 10/17/18 23:15 60 19 114/55 (74) 100 10/17/18 23:00 58 16 112/50 (70) 100 10/17/18 22:47 55 16 25 10/17/18 22:00 54 19 115/62 (79) 100 10/17/18 21:20 48 16 30 10/17/18 21:00 48 16 98/65 (76) 100 10/17/18 20:00 99.6 54 16 134/96 (109) 100 10/17/18 20:00 30 10/17/18 20:00 53 10/17/18 20:00 Endotracheal Tube 10/17/18 19:18 51 16 30 10/17/18 19:00 56 16 122/69 (86) 100 10/17/18 18:00 60 14 122/52 (75) 98 10/17/18 17:00 98.5 55 15 147/82 (103) 100 10/17/18 16:49 64 16 30 10/17/18 16:00 58 16 95/58 (70) 100 10/17/18 16:00 30 10/17/18 16:00 Endotracheal Tube 10/17/18 15:23 57 10/17/18 15:00 69 15 101/56 (71) 93 10/17/18 14:55 61 16 30 10/17/18 14:00 58 16 102/62 (75) 99 10/17/18 13:00 99.3 66 16 101/64 (76) 100 10/17/18 12:55 67 16 30 10/17/18 12:01 68 11/28/18 12:00 65 16 91/56 (68) 98 10/17/18 12:00 Endotracheal Tube 10/17/18 11:00 70 17 88/50 (63) 98 10/17/18 10:35 64 16 30 10/17/18 10:31 Endotracheal Tube 10/17/18 10:28 30 Status: sedated Condition: critical HEENT: atraumatic Neck: full ROM Lungs: rhonchi Heart: HR/BP stable Abdomen: soft, non-tender Extremities: no C/C/E Decubiti: location Micro: Microbiology Date/Time Source Procedure Growth Status 10/17/18 18:00 Nasopharynx Influenza Types A,B Antigen (ADALBERTO) - Final Complete 10/17/18 10:00 Sputum Induced Gram Stain Pending Resulted 10/17/18 10:00 Sputum Induced Sputum Culture - Preliminary NORMAL UPPER RESPIRATORY FUENTES AT 24 ... Resulted 10/17/18 06:45 Rectum Received 10/17/18 03:05 Arm Right Blood Culture - Preliminary NO GROWTH AFTER 24 HOURS Resulted 10/17/18 02:55 Arm Left Blood Culture - Preliminary NO GROWTH AFTER 24 HOURS Resulted Accucheck: 168 Critical Care - Subjective ROS Limited/Unobtainable: Yes ICU Day: 2 Condition: critical FI02: 25 Vent Support Breath Rate: 16 Vent Support Mode: AC Vent Tidal Volume: 600 Sputum Amount: Small PEEP: 0.0 PIP: 31 Tube Feeding Amount: 25 I&O: Intake and Output 10/17/18 10/18/18 18:59 06:59 Intake Total 556.0 ml 310.02 ml Output Total 745 ml 1410 ml Balance -189.0 ml -1099.98 ml Intake Free Water 30 ml IV Total 496.0 ml 70.02 ml Tube Feeding 60 ml 180 ml Other 30 ml Output Urine Total 745 ml 1410 ml # Bowel Movements 1 CXR: ET in good position ET-Tube: 7.5 ET Position: 22 Labs: Laboratory Tests Test 10/17/18 10:20 10/18/18 04:20 10/18/18 07:28 Arterial Blood pH 7.510 (7.350-7.450) 7.470 (7.350-7.450) Arterial Blood Partial Pressure CO2 37.8 mmHg (35.0-45.0) 38.8 mmHg (35.0-45.0) Arterial Blood Partial Pressure O2 227.5 mmHg (75.0-100.0) H 66.8 mmHg (75.0-100.0) L Arterial Blood HCO3 30.0 mmol/L (22.0-26.0) H 28.1 mmol/L (22.0-26.0) H Arterial Blood Oxygen Saturation 97.9 % (95-100) 94.1 % (95-100) L Arterial Blood Base Excess 6.7 (-2-2) H 4.3 (-2-2) H Chidi Test Positive Positive White Blood Count 7.1 K/UL (4.8-10.8) Red Blood Count 4.27 M/UL (4.70-6.10) L Hemoglobin 11.8 G/DL (14.2-18.0) L Hematocrit 37.6 % (42.0-52.0) L Mean Corpuscular Volume 88 FL (80-99) Mean Corpuscular Hemoglobin 27.6 PG (27.0-31.0) Mean Corpuscular Hemoglobin Concent 31.4 G/DL (32.0-36.0) L Red Cell Distribution Width 13.7 % (11.6-14.8) Platelet Count 107 K/UL (150-450) L Mean Platelet Volume 6.8 FL (6.5-10.1) Neutrophils (%) (Auto) % (45.0-75.0) Lymphocytes (%) (Auto) % (20.0-45.0) Monocytes (%) (Auto) % (1.0-10.0) Eosinophils (%) (Auto) % (0.0-3.0) Basophils (%) (Auto) % (0.0-2.0) Erythrocyte Sedimentation Rate 40 MM/HR (0-20) H Sodium Level 148 MMOL/L (136-145) H Potassium Level 3.4 MMOL/L (3.5-5.1) L Chloride Level 112 MMOL/L (98-107) H Carbon Dioxide Level 29 MMOL/L (21-32) Anion Gap 7 mmol/L (5-15) Blood Urea Nitrogen 25 mg/dL (7-18) H Creatinine 0.6 MG/DL (0.55-1.30) Estimat Glomerular Filtration Rate mL/min (>60) Glucose Level 184 MG/DL (74-106) H Calcium Level 9.5 MG/DL (8.5-10.1) Phosphorus Level 1.7 MG/DL (2.5-4.9) L Magnesium Level 1.9 MG/DL (1.8-2.4) Total Bilirubin 0.9 MG/DL (0.2-1.0) Aspartate Amino Transf (AST/SGOT) 26 U/L (15-37) Alanine Aminotransferase (ALT/SGPT) 22 U/L (12-78) Alkaline Phosphatase 67 U/L (46-116) C-Reactive Protein, Quantitative 3.3 mg/dL (0.00-0.90) H Total Protein 7.0 G/DL (6.4-8.2) Albumin 3.0 G/DL (3.4-5.0) L Globulin 4.0 g/dL Albumin/Globulin Ratio 0.8 (1.0-2.7) L Melquiades Junior MD Oct 18, 2018 10:21
--- NOTE | 2018-10-18 11:06 | Diagnostic Imaging Report ---
Indication: Dyspnea Technique: One view of the chest Comparison: 10/17/2018 Findings: Stable satisfactory position of endotracheal tube. Right jugular central venous catheter is again demonstrated. The lungs are hyperinflated. Interim placement nasogastric tube, tip projecting beyond the edge of image, final position indeterminate. Old fracture deformities of the right upper ribs are again noted. Impression: Hyperinflation, as in COPD, unchanged over one day. Interim nasogastric intubation, tip position indeterminate, not included on image. No acute process. Other stable findings as described
[2018-10-18] MEDS ORDERED: Heparin 2000 units/Ns 1000ml INJ PRN (11:15)
[2018-10-18] MEDS ORDERED: Lidocaine 1% Plain 30 ml INJ PRN (11:15)
--- NOTE | 2018-10-18 12:45 | Infectious Diseases Prog Note ---
Assessment/Plan Assessment/Plan Assessment: Acute hypoxic respiratory s/p intubation 10/17 COPD exacerbation- no evidence of PNA. \ -influenza sc neg -sp cx NTD -CXR: Hyperinflation, as in COPD, unchanged over one day. No acute process. Afebrile No leukocytosis schizophrenia emphysema/COPD blindness PVD HLD PNA GERD SN[facility] resident Plan: -Continue Levaquin #2/5 for COPD exacerbation -d/c Empiric Tamiflu #2 -10/17 SP Zosyn #1, Unasyn x1 -f/u cx -Monitor CBC/CMP, temperatures -ETT care -Aspiration precautions Thank you for this consultation. Will continue to follow along with you. Discussed with RN. Subjective Allergies: Coded Allergies: No Known Allergies (Verified , 11/08/11) Subjective afebrile intubated no leukocytosis Objective Vital Signs Last 24 Hour Vital Signs Date Time Temp Pulse Resp B/P (MAP) Pulse Ox O2 Delivery O2 Flow Rate FiO2 10/18/18 12:00 53 16 77/45 (56) 100 10/18/18 11:30 51 16 110/56 (74) 100 10/18/18 11:00 48 16 125/86 (99) 100 10/18/18 10:53 54 16 25 10/18/18 10:30 47 16 111/51 (71) 100 10/18/18 10:00 48 16 108/63 (78) 100 10/18/18 09:30 49 16 124/53 (76) 100 10/18/18 09:19 51 16 25 10/18/18 09:00 52 17 106/85 (92) 83 10/18/18 08:30 47 16 113/60 (77) 100 10/18/18 08:00 Endotracheal Tube 10/18/18 08:00 25 10/18/18 08:00 48 16 104/52 (69) 100 10/18/18 07:30 52 16 120/72 (88) 100 10/18/18 07:02 50 16 25 10/18/18 07:00 97.7 48 16 115/52 (73) 100 10/18/18 06:30 49 16 113/52 (72) 100 10/18/18 06:00 112/52 10/18/18 06:00 49 16 122/55 (77) 100 11/29/18 05:30 51 16 116/57 (76) 100 10/18/18 05:09 58 18 25 10/18/18 05:00 52 16 105/55 (72) 100 10/18/18 05:00 114/54 10/18/18 04:30 56 17 108/47 (67) 100 10/18/18 04:00 Endotracheal Tube 10/18/18 04:00 25 10/18/18 04:00 108/47 10/18/18 04:00 54 10/18/18 04:00 98.7 57 16 112/52 (72) 100 10/18/18 03:30 52 16 124/62 (82) 100 10/18/18 03:30 62 19 108/47 (67) 100 10/18/18 03:20 55 16 25 10/18/18 03:00 52 16 124/62 (82) 100 10/18/18 03:00 124/62 10/18/18 02:30 54 16 122/59 (80) 100 10/18/18 02:00 144/62 10/18/18 02:00 48 16 120/59 (79) 99 10/18/18 01:30 53 18 124/54 (77) 99 10/18/18 01:00 55 18 125/57 (79) 99 10/18/18 01:00 118/54 10/18/18 00:49 52 16 25 10/18/18 00:33 54 16 135/59 (84) 100 10/18/18 00:00 58 16 112/50 (70) 100 10/18/18 00:00 111/53 10/18/18 00:00 Endotracheal Tube 10/17/18 23:45 66 21 112/51 (71) 100 10/17/18 23:30 59 17 120/65 (83) 100 10/17/18 23:17 116/49 10/17/18 23:15 60 19 114/55 (74) 100 10/17/18 23:00 58 16 112/50 (70) 100 10/17/18 22:47 55 16 25 10/17/18 22:00 54 19 115/62 (79) 100 10/17/18 21:20 48 16 30 10/17/18 21:00 48 16 98/65 (76) 100 10/17/18 20:00 99.6 54 16 134/96 (109) 100 10/17/18 20:00 30 10/17/18 20:00 53 10/17/18 20:00 Endotracheal Tube 10/17/18 19:18 51 16 30 10/17/18 19:00 56 16 122/69 (86) 100 10/17/18 18:00 60 14 122/52 (75) 98 10/17/18 17:00 98.5 55 15 147/82 (103) 100 10/17/18 16:49 64 16 30 10/17/18 16:00 58 16 95/58 (70) 100 10/17/18 16:00 30 10/17/18 16:00 Endotracheal Tube 10/17/18 15:23 57 10/17/18 15:00 69 15 101/56 (71) 93 10/17/18 14:55 61 16 30 10/17/18 14:00 58 16 102/62 (75) 99 10/17/18 13:00 99.3 66 16 101/64 (76) 100 10/17/18 12:55 67 16 30 Height (Feet): 5 Height (Inches): 11.00 Weight (Pounds): 129 Microbiology Date/Time Source Procedure Growth Status 10/17/18 18:00 Nasopharynx Influenza Types A,B Antigen (ADALBERTO) - Final Complete 10/17/18 10:00 Sputum Induced Gram Stain - Final Resulted 10/17/18 10:00 Sputum Induced Sputum Culture - Preliminary NORMAL UPPER RESPIRATORY FUENTES AT 24 ... Resulted 10/17/18 06:45 Rectum Received 10/17/18 03:05 Arm Right Blood Culture - Preliminary NO GROWTH AFTER 24 HOURS Resulted 10/17/18 02:55 Arm Left Blood Culture - Preliminary NO GROWTH AFTER 24 HOURS Resulted Laboratory Tests Test 10/18/18 04:20 10/18/18 07:28 White Blood Count 7.1 K/UL (4.8-10.8) Red Blood Count 4.27 M/UL (4.70-6.10) L Hemoglobin 11.8 G/DL (14.2-18.0) L Hematocrit 37.6 % (42.0-52.0) L Mean Corpuscular Volume 88 FL (80-99) Mean Corpuscular Hemoglobin 27.6 PG (27.0-31.0) Mean Corpuscular Hemoglobin Concent 31.4 G/DL (32.0-36.0) L Red Cell Distribution Width 13.7 % (11.6-14.8) Platelet Count 107 K/UL (150-450) L Mean Platelet Volume 6.8 FL (6.5-10.1) Neutrophils (%) (Auto) % (45.0-75.0) Lymphocytes (%) (Auto) % (20.0-45.0) Monocytes (%) (Auto) % (1.0-10.0) Eosinophils (%) (Auto) % (0.0-3.0) Basophils (%) (Auto) % (0.0-2.0) Erythrocyte Sedimentation Rate 40 MM/HR (0-20) H Sodium Level 148 MMOL/L (136-145) H Potassium Level 3.4 MMOL/L (3.5-5.1) L Chloride Level 112 MMOL/L (98-107) H Carbon Dioxide Level 29 MMOL/L (21-32) Anion Gap 7 mmol/L (5-15) Blood Urea Nitrogen 25 mg/dL (7-18) H Creatinine 0.6 MG/DL (0.55-1.30) Estimat Glomerular Filtration Rate mL/min (>60) Glucose Level 184 MG/DL (74-106) H Calcium Level 9.5 MG/DL (8.5-10.1) Phosphorus Level 1.7 MG/DL (2.5-4.9) L Magnesium Level 1.9 MG/DL (1.8-2.4) Total Bilirubin 0.9 MG/DL (0.2-1.0) Aspartate Amino Transf (AST/SGOT) 26 U/L (15-37) Alanine Aminotransferase (ALT/SGPT) 22 U/L (12-78) Alkaline Phosphatase 67 U/L (46-116) C-Reactive Protein, Quantitative 3.3 mg/dL (0.00-0.90) H Total Protein 7.0 G/DL (6.4-8.2) Albumin 3.0 G/DL (3.4-5.0) L Globulin 4.0 g/dL Albumin/Globulin Ratio 0.8 (1.0-2.7) L Arterial Blood pH 7.470 (7.350-7.450) Arterial Blood Partial Pressure CO2 38.8 mmHg (35.0-45.0) Arterial Blood Partial Pressure O2 66.8 mmHg (75.0-100.0) L Arterial Blood HCO3 28.1 mmol/L (22.0-26.0) H Arterial Blood Oxygen Saturation 94.1 % (95-100) L Arterial Blood Base Excess 4.3 (-2-2) H Chidi Test Positive Current Medications Medications (Trade) Dose Ordered Sig/Nkechi Route PRN Reason Start Time Stop Time Status Last Admin Dose Admin Albuterol/ Ipratropium (Albuterol/ Ipratropium) 3 ml Q4H PRN HHN dyspnea 10/17/18 08:30 10/22/18 08:29 Chlorhexidine Gluconate (Tita-Hex 2%) 1 applic DAILY@1999 TOPIC 10/18/18 20:00 11/17/18 19:59 Chlorhexidine Gluconate (Tita-Hex 2%) 1 applic DAILY@1999 TOPIC 10/18/18 20:00 11/17/18 19:59 Dextrose (Dextrose 50%) 25 ml Q30M PRN IV Hypoglycemia 10/17/18 08:30 11/16/18 08:23 Dextrose (Dextrose 50%) 50 ml Q30M PRN IV hypoglycemia 10/17/18 08:30 11/16/18 08:29 Dextrose/Sodium Chloride 1,000 ml @ 60 mls/hr [id number] IV 10/18/18 03:30 11/17/18 03:29 10/18/18 03:30 Dopamine HCl/ Dextrose 250 ml @ 0 mls/hr Q24H IV 10/17/18 22:30 11/16/18 22:29 10/17/18 23:17 Heparin Sodium (Porcine) (Heparin 5000 units/ml) 5,000 units EVERY 12 HOURS SUBQ 10/17/18 09:00 11/16/18 08:59 10/18/18 10:13 Heparin Sodium/ Sodium Chloride (Heparin 2000 units/Ns 1000ml premix) 2,000 unit ONCE PRN INJ PICC PLACEMENT 10/18/18 11:15 10/19/18 23:59 Insulin Aspart (NovoLOG) BEFORE MEALS AND HS SUBQ 10/17/18 11:30 11/16/18 11:29 10/18/18 11:20 Levofloxacin 150 ml @ 100 mls/hr Q24H IVPB 10/17/18 22:00 10/24/18 21:59 10/17/18 22:02 Lidocaine HCl (Xylocaine 1% 30ml) 30 ml ONCE PRN INJ PICC PLACEMENT 10/18/18 11:15 10/19/18 23:59 Lorazepam (Ativan 2mg/ml 1ml) 2 mg Q4H PRN IV For Anxiety 10/17/18 08:30 10/24/18 08:29 10/17/18 23:39 Methylprednisolone Sodium Succinate (Solu-MEDROL) 60 mg DAILY IV 10/19/18 09:00 11/16/18 11:59 Morphine Sulfate (Morphine Sulfate) 2 mg Q4H PRN IVP MODERATE PAIN 10/17/18 08:30 10/24/18 08:29 Morphine Sulfate (Morphine Sulfate) 4 mg Q4H PRN IVP SEVERE PAIN 10/17/18 08:30 10/24/18 08:29 Nitroglycerin (Ntg) 0.4 mg Q5M X 3 DOSES PRN SL Prn Chest Pain 10/17/18 08:30 11/16/18 08:29 Ondansetron HCl (Zofran) 4 mg Q6H PRN IVP Nausea & Vomiting 10/17/18 08:30 11/16/18 08:29 Oseltamivir Phosphate (Tamiflu) 75 mg Q12HR ORAL 10/17/18 21:00 10/22/18 20:59 10/18/18 09:46 Chio Issa M.D. Oct 18, 2018 12:45
[2018-10-18] MEDS ORDERED: Etomidate 40mg/20ml Inj IV ONE (14:13)
--- NOTE | 2018-10-18 15:19 | General Progress Note ---
Assessment/Plan Problem List: (1) Sepsis ICD Codes: A41.9 - Sepsis, unspecified organism SNOMED: 61132044 (2) COPD (chronic obstructive pulmonary disease) ICD Codes: J44.9 - Chronic obstructive pulmonary disease, unspecified SNOMED: 29514702 (3) Psychoses ICD Codes: F29 - Unspecified psychosis not due to a substance or known physiological condition SNOMED: 49603679 (4) Protein-calorie malnutrition, severe ICD Codes: E43 - Unspecified severe protein-calorie malnutrition SNOMED: 745621540 (5) Acute respiratory failure ICD Codes: J96.00 - Acute respiratory failure, unspecified whether with hypoxia or hypercapnia SNOMED: 34574376 Status: unchanged Assessment/Plan vent abx cbc bmp am Subjective Constitutional: Reports: weakness Allergies: Coded Allergies: No Known Allergies (Verified , 11/08/11) All Systems: reviewed and negative except above Subjective intubated sedated in icu Objective Last 24 Hour Vital Signs Date Time Temp Pulse Resp B/P (MAP) Pulse Ox O2 Delivery O2 Flow Rate FiO2 10/18/18 15:10 59 16 25 10/18/18 14:00 47 16 98/50 (66) 99 10/18/18 13:30 60 16 25 10/18/18 13:30 50 16 99/49 (66) 100 10/18/18 13:00 51 16 102/56 (71) 100 10/18/18 13:00 102/56 10/18/18 12:30 51 16 102/56 (71) 100 10/18/18 12:00 Endotracheal Tube 10/18/18 12:00 53 16 77/45 (56) 100 10/18/18 12:00 103/51 10/18/18 12:00 25 10/18/18 12:00 55 10/18/18 11:30 51 16 110/56 (74) 100 10/18/18 11:00 48 16 125/86 (99) 100 10/18/18 11:00 110/56 10/18/18 10:53 54 16 25 10/18/18 10:30 47 16 111/51 (71) 100 10/18/18 10:00 48 16 108/63 (78) 100 10/18/18 10:00 111/51 10/18/18 09:30 49 16 124/53 (76) 100 10/18/18 09:19 51 16 25 10/18/18 09:00 52 17 106/85 (92) 83 10/18/18 09:00 124/53 10/18/18 08:30 47 16 113/60 (77) 100 10/18/18 08:00 Endotracheal Tube 10/18/18 08:00 25 10/18/18 08:00 50 10/18/18 08:00 48 16 104/52 (69) 100 10/18/18 07:30 52 16 120/72 (88) 100 10/18/18 07:02 50 16 25 10/18/18 07:00 97.7 48 16 115/52 (73) 100 10/18/18 06:30 49 16 113/52 (72) 100 10/18/18 06:00 112/52 10/18/18 06:00 49 16 122/55 (77) 100 10/18/18 05:30 51 16 116/57 (76) 100 10/18/18 05:09 58 18 25 10/18/18 05:00 52 16 105/55 (72) 100 10/18/18 05:00 114/54 10/18/18 04:30 56 17 108/47 (67) 100 10/18/18 04:00 Endotracheal Tube 10/18/18 04:00 25 10/18/18 04:00 108/47 10/18/18 04:00 54 10/18/18 04:00 98.7 57 16 112/52 (72) 100 10/18/18 03:30 52 16 124/62 (82) 100 10/18/18 03:30 62 19 108/47 (67) 100 10/18/18 03:20 55 16 25 10/18/18 03:00 52 16 124/62 (82) 100 10/18/18 03:00 124/62 10/18/18 02:30 54 16 122/59 (80) 100 10/18/18 02:00 144/62 10/18/18 02:00 48 16 120/59 (79) 99 10/18/18 01:30 53 18 124/54 (77) 99 10/18/18 01:00 55 18 125/57 (79) 99 10/18/18 01:00 118/54 10/18/18 00:49 52 16 25 10/18/18 00:33 54 16 135/59 (84) 100 10/18/18 00:00 58 16 112/50 (70) 100 10/18/18 00:00 111/53 10/18/18 00:00 Endotracheal Tube 10/17/18 23:45 66 21 112/51 (71) 100 10/17/18 23:30 59 17 120/65 (83) 100 10/17/18 23:17 116/49 10/17/18 23:15 60 19 114/55 (74) 100 10/17/18 23:00 58 16 112/50 (70) 100 10/17/18 22:47 55 16 25 10/17/18 22:00 54 19 115/62 (79) 100 10/17/18 21:20 48 16 30 10/17/18 21:00 48 16 98/65 (76) 100 10/17/18 20:00 99.6 54 16 134/96 (109) 100 10/17/18 20:00 30 10/17/18 20:00 53 10/17/18 20:00 Endotracheal Tube 10/17/18 19:18 51 16 30 10/17/18 19:00 56 16 122/69 (86) 100 10/17/18 18:00 60 14 122/52 (75) 98 10/17/18 17:00 98.5 55 15 147/82 (103) 100 10/17/18 16:49 64 16 30 10/17/18 16:00 58 16 95/58 (70) 100 10/17/18 16:00 30 10/17/18 16:00 Endotracheal Tube 10/17/18 15:23 57 Intake and Output 10/17/18 10/18/18 18:59 06:59 Intake Total 556.0 ml 310.02 ml Output Total 745 ml 1410 ml Balance -189.0 ml -1099.98 ml Intake Free Water 30 ml IV Total 496.0 ml 70.02 ml Tube Feeding 60 ml 180 ml Other 30 ml Output Urine Total 745 ml 1410 ml # Bowel Movements 1 Laboratory Tests 10/18/18 04:20: White Blood Count 7.1, Red Blood Count 4.27L, Hemoglobin 11.8L, Hematocrit 37.6L , Mean Corpuscular Volume 88, Mean Corpuscular Hemoglobin 27.6, Mean Corpuscular Hemoglobin Concent 31.4L, Red Cell Distribution Width 13.7, Platelet Count 107L, Mean Platelet Volume 6.8, Neutrophils (%) (Auto) , Lymphocytes (%) (Auto) , Monocytes (%) (Auto) , Eosinophils (%) (Auto) , Basophils (%) (Auto) , Erythrocyte Sedimentation Rate 40H, Sodium Level 148H, Potassium Level 3.4L, Chloride Level 112H, Carbon Dioxide Level 29, Anion Gap 7 , Blood Urea Nitrogen 25H, Creatinine 0.6, Estimat Glomerular Filtration Rate , Glucose Level 184H, Calcium Level 9.5, Phosphorus Level 1.7L, Magnesium Level 1.9, Total Bilirubin 0.9, Aspartate Amino Transf (AST/SGOT) 26, Alanine Aminotransferase (ALT/SGPT) 22, Alkaline Phosphatase 67, C-Reactive Protein, Quantitative 3.3H, Total Protein 7.0, Albumin 3.0L, Globulin 4.0, Albumin/ Globulin Ratio 0.8L 10/18/18 07:28: Arterial Blood pH 7.470H, Arterial Blood Partial Pressure CO2 38.8, Arterial Blood Partial Pressure O2 66.8L, Arterial Blood HCO3 28.1H, Arterial Blood Oxygen Saturation 94.1L, Arterial Blood Base Excess 4.3H, Chidi Test Positive Height (Feet): 5 Height (Inches): 11.00 Weight (Pounds): 129 General Appearance: lethargic EENT: normal ENT inspection Neck: normal alignment Cardiovascular: normal peripheral pulses, normal rate, regular rhythm Respiratory/Chest: chest wall non-tender, lungs clear, normal breath sounds Abdomen: normal bowel sounds, non tender, soft Extremities: normal inspection Edema: no edema noted Arm (L), no edema noted Arm (R), no edema noted Leg (L), no edema noted Leg (R), no edema noted Pedal (L), no edema noted Pedal (R), no edema noted Generalized Neurologic: motor weakness Skin: normal pigmentation, warm/dry Bob Church DO Oct 18, 2018 15:19
[2018-10-18] MEDS: LORazepam Inj 2mg/ml 1ml IV PRN ×2 (16:32→23:50)
[2018-10-18] MEDS ORDERED: NS 275ml ONE (16:56)
[2018-10-18] MEDS ORDERED: D5 1/2NS 1000ml IV ONE (16:56)
[2018-10-18] MEDS ORDERED: Tubing IV Secondary IV ONE (16:56)
[2018-10-18] MEDS ORDERED: Dyna-Hex 2% Top Sol 2oz TOPIC SCH (20:00)
[2018-10-18] MEDS: Dyna-Hex 2% Top Sol 2oz TOPIC SCH (20:09)
--- NOTE | 2018-10-18 23:54 | Cardiology Progress Note ---
Assessment/Plan Assessment/Plan 1. Hypercapnic hypoxic respiratory failure most likely secondary to acute exacerbation of COPD, still intubated although FiO2 at 25%. 2D echocardiography reveals normal LV systolic function with LVEF at 65% with normal intra-cardiac filling pressure. 2. Hypernatremia, improving, continue fluid administration. 3. Sepsis Subjective Subjective Sinus rhythm at rate of 87. Intubated on the ventilator. Objective Last 24 Hour Vital Signs Date Time Temp Pulse Resp B/P (MAP) Pulse Ox O2 Delivery O2 Flow Rate FiO2 10/18/18 23:24 87 23 25 10/18/18 22:30 62 16 114/44 (67) 100 10/18/18 22:00 59 16 112/44 (66) 100 10/18/18 21:30 60 16 102/59 (73) 100 10/18/18 21:10 56 16 25 10/18/18 21:00 61 16 107/58 (74) 100 10/18/18 20:30 57 16 113/48 (69) 100 10/18/18 20:00 Endotracheal Tube 10/18/18 20:00 25 10/18/18 19:11 57 16 25 10/18/18 19:00 114/59 10/18/18 19:00 58 16 114/59 (77) 100 10/18/18 18:30 56 16 95/51 (66) 99 10/18/18 18:00 97.9 62 18 123/55 (77) 100 10/18/18 17:30 60 17 117/61 (79) 100 10/18/18 17:16 60 16 25 10/18/18 17:00 61 18 102/56 (71) 100 10/18/18 17:00 102/56 10/18/18 16:30 73 20 113/56 (75) 100 10/18/18 16:00 58 10/18/18 16:00 59 16 113/68 (83) 100 10/18/18 16:00 25 10/18/18 16:00 105/47 10/18/18 16:00 Endotracheal Tube 10/18/18 15:30 57 16 108/55 (72) 100 10/18/18 15:10 59 16 25 10/18/18 15:00 56 16 98/39 (58) 100 10/18/18 15:00 98/39 10/18/18 14:30 56 16 106/59 (75) 100 10/18/18 14:00 47 16 98/50 (66) 99 10/18/18 14:00 104/55 10/18/18 13:30 60 16 25 10/18/18 13:30 50 16 99/49 (66) 100 10/18/18 13:00 51 16 102/56 (71) 100 10/18/18 13:00 102/56 10/18/18 12:30 51 16 102/56 (71) 100 10/18/18 12:00 Endotracheal Tube 10/18/18 12:00 97.8 53 16 77/45 (56) 100 10/18/18 12:00 103/51 10/18/18 12:00 25 10/18/18 12:00 55 10/18/18 11:30 51 16 110/56 (74) 100 10/18/18 11:00 48 16 125/86 (99) 100 10/18/18 11:00 110/56 10/18/18 10:53 54 16 25 10/18/18 10:30 47 16 111/51 (71) 100 10/18/18 10:00 48 16 108/63 (78) 100 10/18/18 10:00 111/51 10/18/18 09:30 49 16 124/53 (76) 100 10/18/18 09:19 51 16 25 10/18/18 09:00 52 17 106/85 (92) 83 10/18/18 09:00 124/53 10/18/18 08:30 47 16 113/60 (77) 100 10/18/18 08:00 Endotracheal Tube 10/18/18 08:00 25 10/18/18 08:00 50 10/18/18 08:00 48 16 104/52 (69) 100 10/18/18 07:30 52 16 120/72 (88) 100 10/18/18 07:02 50 16 25 10/18/18 07:00 97.7 48 16 115/52 (73) 100 10/18/18 06:30 49 16 113/52 (72) 100 10/18/18 06:00 112/52 10/18/18 06:00 49 16 122/55 (77) 100 10/18/18 05:30 51 16 116/57 (76) 100 10/18/18 05:09 58 18 25 10/18/18 05:00 52 16 105/55 (72) 100 10/18/18 05:00 114/54 10/18/18 04:30 56 17 108/47 (67) 100 10/18/18 04:00 Endotracheal Tube 10/18/18 04:00 25 10/18/18 04:00 108/47 10/18/18 04:00 54 10/18/18 04:00 98.7 57 16 112/52 (72) 100 10/18/18 03:30 52 16 124/62 (82) 100 10/18/18 03:30 62 19 108/47 (67) 100 10/18/18 03:20 55 16 25 10/18/18 03:00 52 16 124/62 (82) 100 10/18/18 03:00 124/62 10/18/18 02:30 54 16 122/59 (80) 100 10/18/18 02:00 144/62 10/18/18 02:00 48 16 120/59 (79) 99 10/18/18 01:30 53 18 124/54 (77) 99 10/18/18 01:00 55 18 125/57 (79) 99 10/18/18 01:00 118/54 10/18/18 00:49 52 16 25 10/18/18 00:33 54 16 135/59 (84) 100 10/18/18 00:00 58 16 112/50 (70) 100 10/18/18 00:00 111/53 10/18/18 00:00 Endotracheal Tube Intake and Output 10/17/18 10/18/18 19:00 07:00 Intake Total 616.0 ml 332.88 ml Output Total 755 ml 1400 ml Balance -139.0 ml -1067.12 ml Intake Free Water 30 ml IV Total 546.0 ml 82.88 ml Tube Feeding 70 ml 190 ml Other 30 ml Output Urine Total 755 ml 1400 ml # Bowel Movements 1 2D Echo: LVEF 65%, Mild LVH, Grade I LVDD, RVSP 51 mmHg c/w moderate pul HTN Laboratory Tests Test 10/18/18 04:20 10/18/18 07:28 White Blood Count 7.1 K/UL (4.8-10.8) Red Blood Count 4.27 M/UL (4.70-6.10) L Hemoglobin 11.8 G/DL (14.2-18.0) L Hematocrit 37.6 % (42.0-52.0) L Mean Corpuscular Volume 88 FL (80-99) Mean Corpuscular Hemoglobin 27.6 PG (27.0-31.0) Mean Corpuscular Hemoglobin Concent 31.4 G/DL (32.0-36.0) L Red Cell Distribution Width 13.7 % (11.6-14.8) Platelet Count 107 K/UL (150-450) L Mean Platelet Volume 6.8 FL (6.5-10.1) Neutrophils (%) (Auto) % (45.0-75.0) Lymphocytes (%) (Auto) % (20.0-45.0) Monocytes (%) (Auto) % (1.0-10.0) Eosinophils (%) (Auto) % (0.0-3.0) Basophils (%) (Auto) % (0.0-2.0) Erythrocyte Sedimentation Rate 40 MM/HR (0-20) H Sodium Level 148 MMOL/L (136-145) H Potassium Level 3.4 MMOL/L (3.5-5.1) L Chloride Level 112 MMOL/L (98-107) H Carbon Dioxide Level 29 MMOL/L (21-32) Anion Gap 7 mmol/L (5-15) Blood Urea Nitrogen 25 mg/dL (7-18) H Creatinine 0.6 MG/DL (0.55-1.30) Estimat Glomerular Filtration Rate mL/min (>60) Glucose Level 184 MG/DL (74-106) H Calcium Level 9.5 MG/DL (8.5-10.1) Phosphorus Level 1.7 MG/DL (2.5-4.9) L Magnesium Level 1.9 MG/DL (1.8-2.4) Total Bilirubin 0.9 MG/DL (0.2-1.0) Aspartate Amino Transf (AST/SGOT) 26 U/L (15-37) Alanine Aminotransferase (ALT/SGPT) 22 U/L (12-78) Alkaline Phosphatase 67 U/L (46-116) C-Reactive Protein, Quantitative 3.3 mg/dL (0.00-0.90) H Total Protein 7.0 G/DL (6.4-8.2) Albumin 3.0 G/DL (3.4-5.0) L Globulin 4.0 g/dL Albumin/Globulin Ratio 0.8 (1.0-2.7) L Arterial Blood pH 7.470 (7.350-7.450) Arterial Blood Partial Pressure CO2 38.8 mmHg (35.0-45.0) Arterial Blood Partial Pressure O2 66.8 mmHg (75.0-100.0) L Arterial Blood HCO3 28.1 mmol/L (22.0-26.0) H Arterial Blood Oxygen Saturation 94.1 % (95-100) L Arterial Blood Base Excess 4.3 (-2-2) H Chidi Test Positive Microbiology Date/Time Source Procedure Growth Status 10/17/18 18:00 Nasopharynx Influenza Types A,B Antigen (ADALBERTO) - Final Complete 10/17/18 10:00 Sputum Induced Gram Stain - Final Resulted 10/17/18 10:00 Sputum Induced Sputum Culture - Preliminary NORMAL UPPER RESPIRATORY FUENTES AT 24 ... Resulted 10/17/18 06:45 Rectum Received 10/17/18 03:05 Arm Right Blood Culture - Preliminary NO GROWTH AFTER 24 HOURS Resulted 10/17/18 02:55 Arm Left Blood Culture - Preliminary NO GROWTH AFTER 24 HOURS Resulted Objective HEENT: Atraumatic and normocephalic. Anicteric. Bitemporal wasting. NECK: JVP cannot be assessed due to positive inspiratory pressure from the ventilator. No carotid bruit. CVS: Normal S1 and S2. Regular rate and rhythm. No murmurs, gallops, or rubs. Distant heart sounds. PMI is at fourth intercostal space in midclavicular line. LUNGS: Diminished breath sounds throughout both lungs. ABDOMEN: Soft, nontender, and nondistended. No hepatosplenomegaly. Positive bowel sounds. EXTREMITIES: No evidence of edema, clubbing, or cyanosis. Toby Sy MD Oct 18, 2018 23:54
[2018-10-19] VITALS (37 sets, daily range): BP systolic 86–138; BP diastolic 50–94
[2018-10-19 05:20] LABS: BASOPHILS % (AUTO) 0.2 % (0.0-2.0); EOSINOPHILS % (AUTO) 0.2 % (0.0-3.0); HEMATOCRIT 32.1 % (42.0-52.0); HEMOGLOBIN 10.6 G/DL (14.2-18.0); LYMPHOCYTES % (AUTO) 7.2 % (20.0-45.0); MEAN CORPUSCULAR VOLUME 86 FL (80-99); MONOCYTES % (AUTO) 8.1 % (1.0-10.0); NEUTROPHILS % (AUTO) 84.3 % (45.0-75.0); PLATELET COUNT 107 K/UL (150-450); RED BLOOD COUNT 3.72 M/UL (4.70-6.10); RED CELL DISTRIBUTION WIDTH 14.1 % (11.6-14.8); WHITE BLOOD COUNT 10.5 K/UL (4.8-10.8)
[2018-10-19 05:45] LABS: ALANINE AMINOTRANSFERASE 20 U/L (12-78); ALBUMIN 2.5 G/DL (3.4-5.0); ALBUMIN/GLOBULIN RATIO 0.8 (1.0-2.7); ALKALINE PHOSPHATASE 54 U/L (46-116); ANION GAP 7 mmol/L (5-15); ASPARTATE AMINO TRANSFERASE 21 U/L (15-37); BILIRUBIN,TOTAL 0.6 MG/DL (0.2-1.0); BLOOD UREA NITROGEN 27 mg/dL (7-18); CALCIUM 8.9 MG/DL (8.5-10.1); CARBON DIOXIDE 28 MMOL/L (21-32); CHLORIDE 112 MMOL/L (98-107); CREATININE 0.4 MG/DL (0.55-1.30); SODIUM 147 MMOL/L (136-145)
[2018-10-19] MEDS: NovoLOG Insulin Flexpen SUBQ SCH ×4 (06:03→21:00)
[2018-10-19] MEDS: Solu-MEDROL 125mg Inj IV SCH (08:36)
[2018-10-19] MEDS: Heparin 5000 units/ml inj SUBQ SCH ×2 (08:37→21:00)
--- NOTE | 2018-10-19 10:08 | Pulmonolgy Critical Care Note ---
Critical Care - Asmt/Plan Problems: (1) Protein-calorie malnutrition, severe (2) Acute respiratory failure (3) Psychoses (4) COPD (chronic obstructive pulmonary disease) (5) Sepsis Respiratory: monitor respiratory rate, adjust FIO2, CXR Cardiac: d/c monitoring manager Renal: F/U I&O, check electrolytes Infectious Disease: check cultures, continue antibiotics Gastrointestinal: continue feedings/current rate Endocrine: monitor blood sugar, continue sliding scale insulin Hematologic: transfuse if hgb<8.5 Neurologic: PRN Ativan, PRN Morphine, keep patient comfortable Prophylaxis: Protonix, Heparin Disposition: keep in ICU Time Spent (Minutes): 40 Critical Care - Objective Last 24 Hour Vital Signs Date Time Temp Pulse Resp B/P (MAP) Pulse Ox O2 Delivery O2 Flow Rate FiO2 10/19/18 08:50 100 Nasal Cannula 2.0 28 10/19/18 08:50 Nasal Cannula 2.0 28 10/19/18 07:27 Non-Rebreather 15.0 100 10/19/18 06:30 57 16 105/57 (73) 100 10/19/18 06:00 63 16 94/63 (73) 100 10/19/18 05:30 61 16 107/62 (77) 100 10/19/18 05:15 63 16 25 10/19/18 05:00 65 16 107/62 (77) 100 10/19/18 04:30 70 16 104/61 (75) 100 10/19/18 04:00 25 10/19/18 04:00 Endotracheal Tube 10/19/18 04:00 98.7 57 16 95/54 (68) 100 10/19/18 04:00 62 10/19/18 03:30 57 16 95/54 (68) 100 10/19/18 03:10 61 16 25 10/19/18 03:00 60 16 98/62 (74) 100 10/19/18 02:00 61 16 114/50 (71) 100 10/19/18 02:00 98/72 10/19/18 01:00 67 16 105/50 (68) 100 10/19/18 01:00 105/64 10/19/18 00:51 75 17 25 10/19/18 00:30 98.8 73 19 116/63 (80) 100 10/19/18 00:00 84 10/19/18 00:00 25 10/19/18 00:00 83 19 109/61 (77) 100 10/19/18 00:00 109/61 10/19/18 00:00 Endotracheal Tube 10/18/18 23:30 81 18 117/65 (82) 100 10/18/18 23:24 87 23 25 10/18/18 23:00 71 16 124/65 (84) 100 10/18/18 23:00 124/65 10/18/18 22:30 62 16 114/44 (67) 100 10/18/18 22:00 59 16 112/44 (66) 100 10/18/18 22:00 114/59 10/18/18 21:30 60 16 102/59 (73) 100 10/18/18 21:10 56 16 25 10/18/18 21:00 61 16 107/58 (74) 100 10/18/18 21:00 102/59 10/18/18 20:30 57 16 113/48 (69) 100 10/18/18 20:00 56 10/18/18 20:00 107/58 10/18/18 20:00 98.7 60 16 107/58 (74) 100 10/18/18 20:00 Endotracheal Tube 10/18/18 20:00 25 10/18/18 19:11 57 16 25 10/18/18 19:00 114/59 10/18/18 19:00 58 16 114/59 (77) 100 10/18/18 18:30 56 16 95/51 (66) 99 10/18/18 18:00 97.9 62 18 123/55 (77) 100 10/18/18 17:30 60 17 117/61 (79) 100 10/18/18 17:16 60 16 25 10/18/18 17:00 61 18 102/56 (71) 100 10/18/18 17:00 102/56 10/18/18 16:30 73 20 113/56 (75) 100 10/18/18 16:00 58 10/18/18 16:00 59 16 113/68 (83) 100 10/18/18 16:00 25 10/18/18 16:00 105/47 10/18/18 16:00 Endotracheal Tube 10/18/18 15:30 57 16 108/55 (72) 100 10/18/18 15:10 59 16 25 10/18/18 15:00 56 16 98/39 (58) 100 10/18/18 15:00 98/39 10/18/18 14:30 56 16 106/59 (75) 100 10/18/18 14:00 47 16 98/50 (66) 99 10/18/18 14:00 104/55 10/18/18 13:30 60 16 25 10/18/18 13:30 50 16 99/49 (66) 100 10/18/18 13:00 51 16 102/56 (71) 100 10/18/18 13:00 102/56 10/18/18 12:30 51 16 102/56 (71) 100 10/18/18 12:00 Endotracheal Tube 10/18/18 12:00 97.8 53 16 77/45 (56) 100 10/18/18 12:00 103/51 10/18/18 12:00 25 10/18/18 12:00 55 10/18/18 11:30 51 16 110/56 (74) 100 10/18/18 11:00 48 16 125/86 (99) 100 10/18/18 11:00 110/56 10/18/18 10:53 54 16 25 10/18/18 10:30 47 16 111/51 (71) 100 Status: sedated, somnolent Condition: critical Neck: full ROM Lungs: clear Heart: HR/BP stable Abdomen: soft, non-tender, feeding tube, tolerating feeding Micro: Microbiology Date/Time Source Procedure Growth Status 10/17/18 18:00 Nasopharynx Influenza Types A,B Antigen (ADALBERTO) - Final Complete 10/17/18 10:00 Sputum Induced Gram Stain - Final Complete 10/17/18 10:00 Sputum Induced Sputum Culture - Final NORMAL UPPER RESPIRATORY FUENTES PRESENT Complete 10/17/18 06:45 Rectum - Final NO CARBAPENEM-RESISTANT ENTEROBACTERI... Complete 10/17/18 06:00 Rectum VRE Culture - Final Enterococcus Faecalis - Vre Complete 10/17/18 03:05 Arm Right Blood Culture - Preliminary NO GROWTH AFTER 48 HOURS Resulted 10/17/18 02:55 Arm Left Blood Culture - Preliminary NO GROWTH AFTER 48 HOURS Resulted Accucheck: 156 Critical Care - Subjective ROS Limited/Unobtainable: Yes Interval Events: self extubated, doing ok, on Nasal cannula Condition: critical EKG Rhythm: Sinus Rhythm FI02: 28 Vent Support Breath Rate: 16 Vent Support Mode: AC Vent Tidal Volume: 600 Sputum Amount: Scant PEEP: 0.0 PIP: 28 Tube Feeding Amount: 55 I&O: Intake and Output 10/18/18 10/19/18 19:00 07:00 Intake Total 1369.32 ml 1187.0 ml Output Total 700 ml 835 ml Balance 669.32 ml 352.0 ml Intake Free Water 215 ml 60 ml IV Total 754.32 ml 582.0 ml Tube Feeding 400 ml 545 ml Output Urine Total 700 ml 835 ml ET-Tube: 7.5 ET Position: 22 Labs: Laboratory Tests Test 10/19/18 04:35 10/19/18 08:38 White Blood Count 10.5 K/UL (4.8-10.8) Red Blood Count 3.72 M/UL (4.70-6.10) L Hemoglobin 10.6 G/DL (14.2-18.0) L Hematocrit 32.1 % (42.0-52.0) L Mean Corpuscular Volume 86 FL (80-99) Mean Corpuscular Hemoglobin 28.6 PG (27.0-31.0) Mean Corpuscular Hemoglobin Concent 33.1 G/DL (32.0-36.0) Red Cell Distribution Width 14.1 % (11.6-14.8) Platelet Count 107 K/UL (150-450) L Mean Platelet Volume 6.7 FL (6.5-10.1) Neutrophils (%) (Auto) 84.3 % (45.0-75.0) H Lymphocytes (%) (Auto) 7.2 % (20.0-45.0) L Monocytes (%) (Auto) 8.1 % (1.0-10.0) Eosinophils (%) (Auto) 0.2 % (0.0-3.0) Basophils (%) (Auto) 0.2 % (0.0-2.0) Sodium Level 147 MMOL/L (136-145) H Potassium Level 3.0 MMOL/L (3.5-5.1) L Chloride Level 112 MMOL/L (98-107) H Carbon Dioxide Level 28 MMOL/L (21-32) Anion Gap 7 mmol/L (5-15) Blood Urea Nitrogen 27 mg/dL (7-18) H Creatinine 0.4 MG/DL (0.55-1.30) L Estimat Glomerular Filtration Rate mL/min (>60) Glucose Level 129 MG/DL (74-106) H Calcium Level 8.9 MG/DL (8.5-10.1) Phosphorus Level 2.0 MG/DL (2.5-4.9) L Magnesium Level 1.7 MG/DL (1.8-2.4) L Total Bilirubin 0.6 MG/DL (0.2-1.0) Aspartate Amino Transf (AST/SGOT) 21 U/L (15-37) Alanine Aminotransferase (ALT/SGPT) 20 U/L (12-78) Alkaline Phosphatase 54 U/L (46-116) Total Protein 5.8 G/DL (6.4-8.2) L Albumin 2.5 G/DL (3.4-5.0) L Globulin 3.3 g/dL Albumin/Globulin Ratio 0.8 (1.0-2.7) L Arterial Blood pH 7.329 (7.350-7.450) Arterial Blood Partial Pressure CO2 60.6 mmHg (35.0-45.0) *H Arterial Blood Partial Pressure O2 415.5 mmHg (75.0-100.0) H Arterial Blood HCO3 31.2 mmol/L (22.0-26.0) H Arterial Blood Oxygen Saturation 99.2 % (95-100) Arterial Blood Base Excess 3.8 (-2-2) H Chidi Test Positive Melquiades Junior MD Oct 19, 2018 10:08
--- NOTE | 2018-10-19 10:46 | Diagnostic Imaging Report ---
Indication: Shortness of breath Technique: One view of the chest Comparison: 12/18/2017 Findings: Stable satisfactory positions of nasogastric tube and right jugular central venous catheter. Lungs remain hyperinflated. The heart size is normal. Previously demonstrated endotracheal tube is no longer present. Right upper chest wall deformity is again demonstrated Impression: Interim extubation Otherwise stable findings as described
[2018-10-19] MEDS: D5 1/2NS 1,000 ML IV SCH (11:56)
--- NOTE | 2018-10-19 12:57 | General Progress Note ---
Assessment/Plan Problem List: (1) Sepsis ICD Codes: A41.9 - Sepsis, unspecified organism SNOMED: 41337397 (2) COPD (chronic obstructive pulmonary disease) ICD Codes: J44.9 - Chronic obstructive pulmonary disease, unspecified SNOMED: 28970721 (3) Psychoses ICD Codes: F29 - Unspecified psychosis not due to a substance or known physiological condition SNOMED: 93560526 (4) Protein-calorie malnutrition, severe ICD Codes: E43 - Unspecified severe protein-calorie malnutrition SNOMED: 687538074 (5) Acute respiratory failure ICD Codes: J96.00 - Acute respiratory failure, unspecified whether with hypoxia or hypercapnia SNOMED: 85685938 Status: stable, progressing Assessment/Plan o2 pulm tx abx cbc bmp am ltach eval Subjective Constitutional: Reports: weakness Allergies: Coded Allergies: No Known Allergies (Verified , 11/08/11) All Systems: reviewed and negative except above Subjective o2nc sleepy in icu Objective Last 24 Hour Vital Signs Date Time Temp Pulse Resp B/P (MAP) Pulse Ox O2 Delivery O2 Flow Rate FiO2 10/19/18 12:00 98.7 75 26 111/55 (73) 96 10/19/18 12:00 Nasal Cannula 2.0 10/19/18 12:00 2.0 10/19/18 11:30 79 28 118/58 (78) 95 10/19/18 11:00 77 25 107/63 (78) 95 10/19/18 10:30 81 26 103/55 (71) 92 10/19/18 10:00 76 24 117/59 (78) 95 10/19/18 09:30 81 22 117/64 (81) 98 10/19/18 09:00 82 19 118/64 (82) 100 10/19/18 08:50 100 Nasal Cannula 2.0 28 10/19/18 08:50 Nasal Cannula 2.0 28 10/19/18 08:30 85 20 114/62 (79) 100 10/19/18 08:00 80 10/19/18 08:00 Nasal Cannula 2.0 10/19/18 08:00 2.0 10/19/18 08:00 102 19 118/55 (76) 100 10/19/18 07:30 72 17 112/58 (76) 100 11/30/18 07:27 Non-Rebreather 15.0 100 10/19/18 07:00 58 16 86/52 (63) 100 10/19/18 06:30 57 16 105/57 (73) 100 10/19/18 06:00 63 16 94/63 (73) 100 10/19/18 05:30 61 16 107/62 (77) 100 10/19/18 05:15 63 16 25 10/19/18 05:00 65 16 107/62 (77) 100 10/19/18 04:30 70 16 104/61 (75) 100 10/19/18 04:00 25 10/19/18 04:00 Endotracheal Tube 10/19/18 04:00 98.7 57 16 95/54 (68) 100 10/19/18 04:00 62 10/19/18 03:30 57 16 95/54 (68) 100 10/19/18 03:10 61 16 25 10/19/18 03:00 60 16 98/62 (74) 100 10/19/18 02:00 61 16 114/50 (71) 100 10/19/18 02:00 98/72 10/19/18 01:00 67 16 105/50 (68) 100 10/19/18 01:00 105/64 10/19/18 00:51 75 17 25 10/19/18 00:30 98.8 73 19 116/63 (80) 100 10/19/18 00:00 84 10/19/18 00:00 25 10/19/18 00:00 83 19 109/61 (77) 100 10/19/18 00:00 109/61 10/19/18 00:00 Endotracheal Tube 10/18/18 23:30 81 18 117/65 (82) 100 10/18/18 23:24 87 23 25 10/18/18 23:00 71 16 124/65 (84) 100 10/18/18 23:00 124/65 10/18/18 22:30 62 16 114/44 (67) 100 10/18/18 22:00 59 16 112/44 (66) 100 10/18/18 22:00 114/59 10/18/18 21:30 60 16 102/59 (73) 100 10/18/18 21:10 56 16 25 10/18/18 21:00 61 16 107/58 (74) 100 10/18/18 21:00 102/59 10/18/18 20:30 57 16 113/48 (69) 100 10/18/18 20:00 56 10/18/18 20:00 107/58 10/18/18 20:00 98.7 60 16 107/58 (74) 100 10/18/18 20:00 Endotracheal Tube 10/18/18 20:00 25 10/18/18 19:11 57 16 25 10/18/18 19:00 114/59 10/18/18 19:00 58 16 114/59 (77) 100 10/18/18 18:30 56 16 95/51 (66) 99 10/18/18 18:00 97.9 62 18 123/55 (77) 100 10/18/18 17:30 60 17 117/61 (79) 100 10/18/18 17:16 60 16 25 10/18/18 17:00 61 18 102/56 (71) 100 10/18/18 17:00 102/56 10/18/18 16:30 73 20 113/56 (75) 100 10/18/18 16:00 58 10/18/18 16:00 59 16 113/68 (83) 100 10/18/18 16:00 25 10/18/18 16:00 105/47 10/18/18 16:00 Endotracheal Tube 10/18/18 15:30 57 16 108/55 (72) 100 10/18/18 15:10 59 16 25 10/18/18 15:00 56 16 98/39 (58) 100 10/18/18 15:00 98/39 10/18/18 14:30 56 16 106/59 (75) 100 10/18/18 14:00 47 16 98/50 (66) 99 10/18/18 14:00 104/55 10/18/18 13:30 60 16 25 10/18/18 13:30 50 16 99/49 (66) 100 10/18/18 13:00 51 16 102/56 (71) 100 10/18/18 13:00 102/56 Intake and Output 10/18/18 10/19/18 18:59 06:59 Intake Total 1344.32 ml 1294.86 ml Output Total 400 ml 1135 ml Balance 944.32 ml 159.86 ml Intake Free Water 215 ml 60 ml IV Total 754.32 ml 644.86 ml Tube Feeding 375 ml 590 ml Output Urine Total 400 ml 1135 ml Laboratory Tests 10/19/18 04:35: White Blood Count 10.5, Red Blood Count 3.72L, Hemoglobin 10.6L, Hematocrit 32.1L, Mean Corpuscular Volume 86, Mean Corpuscular Hemoglobin 28.6, Mean Corpuscular Hemoglobin Concent 33.1, Red Cell Distribution Width 14.1, Platelet Count 107L, Mean Platelet Volume 6.7, Neutrophils (%) (Auto) 84.3H, Lymphocytes (%) (Auto) 7.2L, Monocytes (%) (Auto) 8.1, Eosinophils (%) (Auto) 0.2, Basophils (%) (Auto) 0.2, Sodium Level 147H, Potassium Level 3.0L, Chloride Level 112H, Carbon Dioxide Level 28, Anion Gap 7, Blood Urea Nitrogen 27H, Creatinine 0.4L, Estimat Glomerular Filtration Rate , Glucose Level 129H, Calcium Level 8.9, Phosphorus Level 2.0L, Magnesium Level 1.7L, Total Bilirubin 0.6, Aspartate Amino Transf (AST/SGOT) 21, Alanine Aminotransferase (ALT/SGPT) 20, Alkaline Phosphatase 54, Total Protein 5.8L, Albumin 2.5L, Globulin 3.3, Albumin/Globulin Ratio 0.8L 10/19/18 08:38: Arterial Blood pH 7.329L, Arterial Blood Partial Pressure CO2 60.6*H, Arterial Blood Partial Pressure O2 415.5H, Arterial Blood HCO3 31.2H, Arterial Blood Oxygen Saturation 99.2, Arterial Blood Base Excess 3.8H, Chidi Test Positive Height (Feet): 5 Height (Inches): 11.00 Weight (Pounds): 126 General Appearance: lethargic EENT: normal ENT inspection Neck: normal alignment Cardiovascular: normal peripheral pulses, normal rate, regular rhythm Respiratory/Chest: chest wall non-tender, lungs clear, decreased breath sounds Abdomen: normal bowel sounds, non tender, soft Extremities: normal inspection Edema: no edema noted Arm (L), no edema noted Arm (R), no edema noted Leg (L), no edema noted Leg (R), no edema noted Pedal (L), no edema noted Pedal (R), no edema noted Generalized Neurologic: motor weakness Skin: normal pigmentation, warm/dry Lymphatic: normal anterior cervical (L), normal anterior cervical (R), normal posterior cervical (L), normal posterior cervical (R), normal submandibular (L) , normal submandibular (R), normal supraclavicular (L), normal supraclavicular ( R), normal axillary (L), normal axillary (R), normal inguinal (L), normal inguinal (R), normal other Bbo Church DO Oct 19, 2018 12:57
--- NOTE | 2018-10-19 16:40 | Diagnostic Imaging Report ---
Indication: Post nasogastric tube placement Technique: Supine view of the upper abdomen Comparison: Patient [facility]ge radiograph from abdomen pelvis CT 11/08/2011 Findings: There is a nasogastric tube in place. Tip projects at the level gastric antrum body junction. However, proximal port projects at the level of the gastroesophageal junction. A few prominent small bowel loops are seen in the left lower quadrant. There is an inferior vena cava filter.. Impression: Slightly high position of nasogastric tube, proximal port at the gastroesophageal junction. Advancement recommended. Prominent left lower quadrant small bowel loops Inferior vena cava filter incidentally noted
--- NOTE | 2018-10-19 16:43 | Infectious Diseases Prog Note ---
Assessment/Plan Assessment/Plan Assessment: Acute hypoxic respiratory s/p intubation 10/17; extubated 10/19 COPD exacerbation- no evidence of PNA. \ -influenza sc neg -sp cx NTD -CXR: Hyperinflation, as in COPD, unchanged over one day. No acute process. Afebrile No leukocytosis schizophrenia emphysema/COPD blindness PVD HLD PNA GERD SNF resident Plan: -Continue Levaquin #3/5 for COPD exacerbation -10/18 SP Tamiflu #2 -10/17 SP Zosyn #1, Unasyn x1 -f/u cx -Monitor CBC/CMP, temperatures -Aspiration precautions Thank you for this consultation. Will continue to follow along with you. Discussed with RN. Subjective Allergies: Coded Allergies: No Known Allergies (Verified , 11/08/11) Subjective afebrile extubated, now on 2l nC no leukocytosis Objective Vital Signs Last 24 Hour Vital Signs Date Time Temp Pulse Resp B/P (MAP) Pulse Ox O2 Delivery O2 Flow Rate FiO2 10/19/18 15:00 75 20 119/55 (76) 100 10/19/18 14:00 71 23 113/94 (100) 99 10/19/18 13:00 69 22 118/51 (73) 98 10/19/18 12:30 75 30 107/58 (74) 95 10/19/18 12:00 75 10/19/18 12:00 98.7 75 26 111/55 (73) 96 10/19/18 12:00 Nasal Cannula 2.0 10/19/18 12:00 2.0 10/19/18 11:30 79 28 118/58 (78) 95 10/19/18 11:00 77 25 107/63 (78) 95 10/19/18 10:30 81 26 103/55 (71) 92 10/19/18 10:00 76 24 117/59 (78) 95 10/19/18 09:30 81 22 117/64 (81) 98 10/19/18 09:00 82 19 118/64 (82) 100 10/19/18 08:50 100 Nasal Cannula 2.0 28 10/19/18 08:50 Nasal Cannula 2.0 28 10/19/18 08:30 85 20 114/62 (79) 100 10/19/18 08:00 80 10/19/18 08:00 Nasal Cannula 2.0 10/19/18 08:00 2.0 10/19/18 08:00 102 19 118/55 (76) 100 10/19/18 07:30 72 17 112/58 (76) 100 10/19/18 07:27 Non-Rebreather 15.0 100 10/19/18 07:00 58 16 86/52 (63) 100 10/19/18 06:30 57 16 105/57 (73) 100 10/19/18 06:00 63 16 94/63 (73) 100 10/19/18 05:30 61 16 107/62 (77) 100 10/19/18 05:15 63 16 25 10/19/18 05:00 65 16 107/62 (77) 100 10/19/18 04:30 70 16 104/61 (75) 100 10/19/18 04:00 25 10/19/18 04:00 Endotracheal Tube 10/19/18 04:00 98.7 57 16 95/54 (68) 100 10/19/18 04:00 62 10/19/18 03:30 57 16 95/54 (68) 100 10/19/18 03:10 61 16 25 10/19/18 03:00 60 16 98/62 (74) 100 10/19/18 02:00 61 16 114/50 (71) 100 10/19/18 02:00 98/72 10/19/18 01:00 67 16 105/50 (68) 100 10/19/18 01:00 105/64 10/19/18 00:51 75 17 25 10/19/18 00:30 98.8 73 19 116/63 (80) 100 10/19/18 00:00 84 10/19/18 00:00 25 10/19/18 00:00 83 19 109/61 (77) 100 10/19/18 00:00 109/61 10/19/18 00:00 Endotracheal Tube 10/18/18 23:30 81 18 117/65 (82) 100 10/18/18 23:24 87 23 25 10/18/18 23:00 71 16 124/65 (84) 100 10/18/18 23:00 124/65 10/18/18 22:30 62 16 114/44 (67) 100 10/18/18 22:00 59 16 112/44 (66) 100 10/18/18 22:00 114/59 10/18/18 21:30 60 16 102/59 (73) 100 10/18/18 21:10 56 16 25 10/18/18 21:00 61 16 107/58 (74) 100 10/18/18 21:00 102/59 10/18/18 20:30 57 16 113/48 (69) 100 10/18/18 20:00 56 10/18/18 20:00 107/58 10/18/18 20:00 98.7 60 16 107/58 (74) 100 10/18/18 20:00 Endotracheal Tube 10/18/18 20:00 25 10/18/18 19:11 57 16 25 10/18/18 19:00 114/59 10/18/18 19:00 58 16 114/59 (77) 100 10/18/18 18:30 56 16 95/51 (66) 99 10/18/18 18:00 97.9 62 18 123/55 (77) 100 10/18/18 17:30 60 17 117/61 (79) 100 10/18/18 17:16 60 16 25 10/18/18 17:00 61 18 102/56 (71) 100 10/18/18 17:00 102/56 Height (Feet): 5 Height (Inches): 11.00 Weight (Pounds): 126 Objective General Appearance: severe distress, cachetic, Chronically Ill Neck: limited range of motion Respiratory: decreased breath sounds, wheezing Cardiovascular #1: normal peripheral pulses, regular rate, rhythm, no edema Gastrointestinal: normal inspection Neurologic: normal inspection, alert, oriented x3 Skin: normal inspection Microbiology Date/Time Source Procedure Growth Status 10/17/18 18:00 Nasopharynx Influenza Types A,B Antigen (ADALBERTO) - Final Complete 10/17/18 10:00 Sputum Induced Gram Stain - Final Complete 10/17/18 10:00 Sputum Induced Sputum Culture - Final NORMAL UPPER RESPIRATORY FUENTES PRESENT Complete 10/17/18 06:45 Nasal Nares Left MRSA Culture - Final NO METHICILLIN RESISTANT STAPH AUREUS... Complete 10/17/18 06:45 Rectum - Final NO CARBAPENEM-RESISTANT ENTEROBACTERI... Complete 10/17/18 06:00 Rectum VRE Culture - Final Enterococcus Faecalis - Vre Complete 10/17/18 03:05 Arm Right Blood Culture - Preliminary NO GROWTH AFTER 48 HOURS Resulted 10/17/18 02:55 Arm Left Blood Culture - Preliminary NO GROWTH AFTER 48 HOURS Resulted Laboratory Tests Test 10/19/18 04:35 10/19/18 08:38 White Blood Count 10.5 K/UL (4.8-10.8) Red Blood Count 3.72 M/UL (4.70-6.10) L Hemoglobin 10.6 G/DL (14.2-18.0) L Hematocrit 32.1 % (42.0-52.0) L Mean Corpuscular Volume 86 FL (80-99) Mean Corpuscular Hemoglobin 28.6 PG (27.0-31.0) Mean Corpuscular Hemoglobin Concent 33.1 G/DL (32.0-36.0) Red Cell Distribution Width 14.1 % (11.6-14.8) Platelet Count 107 K/UL (150-450) L Mean Platelet Volume 6.7 FL (6.5-10.1) Neutrophils (%) (Auto) 84.3 % (45.0-75.0) H Lymphocytes (%) (Auto) 7.2 % (20.0-45.0) L Monocytes (%) (Auto) 8.1 % (1.0-10.0) Eosinophils (%) (Auto) 0.2 % (0.0-3.0) Basophils (%) (Auto) 0.2 % (0.0-2.0) Sodium Level 147 MMOL/L (136-145) H Potassium Level 3.0 MMOL/L (3.5-5.1) L Chloride Level 112 MMOL/L (98-107) H Carbon Dioxide Level 28 MMOL/L (21-32) Anion Gap 7 mmol/L (5-15) Blood Urea Nitrogen 27 mg/dL (7-18) H Creatinine 0.4 MG/DL (0.55-1.30) L Estimat Glomerular Filtration Rate mL/min (>60) Glucose Level 129 MG/DL (74-106) H Calcium Level 8.9 MG/DL (8.5-10.1) Phosphorus Level 2.0 MG/DL (2.5-4.9) L Magnesium Level 1.7 MG/DL (1.8-2.4) L Total Bilirubin 0.6 MG/DL (0.2-1.0) Aspartate Amino Transf (AST/SGOT) 21 U/L (15-37) Alanine Aminotransferase (ALT/SGPT) 20 U/L (12-78) Alkaline Phosphatase 54 U/L (46-116) Total Protein 5.8 G/DL (6.4-8.2) L Albumin 2.5 G/DL (3.4-5.0) L Globulin 3.3 g/dL Albumin/Globulin Ratio 0.8 (1.0-2.7) L Arterial Blood pH 7.329 (7.350-7.450) Arterial Blood Partial Pressure CO2 60.6 mmHg (35.0-45.0) *H Arterial Blood Partial Pressure O2 415.5 mmHg (75.0-100.0) H Arterial Blood HCO3 31.2 mmol/L (22.0-26.0) H Arterial Blood Oxygen Saturation 99.2 % (95-100) Arterial Blood Base Excess 3.8 (-2-2) H Chidi Test Positive Current Medications Medications (Trade) Dose Ordered Sig/Nkechi Route PRN Reason Start Time Stop Time Status Last Admin Dose Admin Albuterol/ Ipratropium (Albuterol/ Ipratropium) 3 ml Q4H PRN HHN dyspnea 10/17/18 08:30 10/22/18 08:29 Chlorhexidine Gluconate (Tita-Hex 2%) 1 applic DAILY@2000 TOPIC 10/18/18 20:00 11/17/18 19:59 10/18/18 20:09 Dextrose (Dextrose 50%) 25 ml Q30M PRN IV Hypoglycemia 10/17/18 08:30 11/16/18 08:23 Dextrose (Dextrose 50%) 50 ml Q30M PRN IV hypoglycemia 10/17/18 08:30 11/16/18 08:29 Dextrose/Sodium Chloride 1,000 ml @ 60 mls/hr [id number] IV 10/18/18 03:30 11/17/18 03:29 10/19/18 11:56 Dopamine HCl/ Dextrose 250 ml @ 0 mls/hr Q24H IV 10/17/18 22:30 11/16/18 22:29 10/17/18 23:17 Heparin Sodium (Porcine) (Heparin 5000 units/ml) 5,000 units EVERY 12 HOURS SUBQ 10/17/18 09:00 11/16/18 08:59 10/18/18 10:13 Heparin Sodium/ Sodium Chloride (Heparin 2000 units/Ns 1000ml premix) 2,000 unit ONCE PRN INJ PICC PLACEMENT 10/18/18 11:15 10/19/18 23:59 Insulin Aspart (NovoLOG) BEFORE MEALS AND HS SUBQ 10/17/18 11:30 11/16/18 11:29 10/19/18 12:01 Levofloxacin 150 ml @ 100 mls/hr Q24H IVPB 10/17/18 22:00 10/24/18 21:59 10/18/18 21:46 Lidocaine HCl (Xylocaine 1% 30ml) 30 ml ONCE PRN INJ PICC PLACEMENT 10/18/18 11:15 10/19/18 23:59 Lorazepam (Ativan 2mg/ml 1ml) 2 mg Q4H PRN IV For Anxiety 10/17/18 08:30 10/24/18 08:29 10/18/18 23:50 Methylprednisolone Sodium Succinate (Solu-MEDROL) 60 mg DAILY IV 10/19/18 09:00 11/16/18 11:59 10/19/18 08:36 Morphine Sulfate (Morphine Sulfate) 2 mg Q4H PRN IVP MODERATE PAIN 10/17/18 08:30 10/24/18 08:29 Morphine Sulfate (Morphine Sulfate) 4 mg Q4H PRN IVP SEVERE PAIN 10/17/18 08:30 10/24/18 08:29 Nitroglycerin (Ntg) 0.4 mg Q5M X 3 DOSES PRN SL Prn Chest Pain 10/17/18 08:30 11/16/18 08:29 Ondansetron HCl (Zofran) 4 mg Q6H PRN IVP Nausea & Vomiting 10/17/18 08:30 11/16/18 08:29 Chio Issa M.D. Oct 19, 2018 16:43
--- NOTE | 2018-10-19 19:04 | Diagnostic Imaging Report ---
EXAM: XR Abdomen, 2 Views CLINICAL HISTORY: NGT TECHNIQUE: Frontal view of the abdomen/pelvis with upright view of the abdomen. COMPARISON: 10/19/18 at 1407. FINDINGS/IMPRESSION: The enteric tube has been advanced. The tip now projects in the distal stomach. It is not clearly postpyloric. IVC filter.
[2018-10-19] MEDS: Dyna-Hex 2% Top Sol 2oz TOPIC SCH (20:58)
--- NOTE | 2018-10-19 22:29 | Cardiology Progress Note ---
Assessment/Plan Assessment/Plan 1. Hypercapnic hypoxic respiratory failure, resolved, self-extubated, most likely secondary to acute exacerbation of COPD, 2D echocardiography reveals normal LV systolic function with LVEF at 65% with normal intra-cardiac filling pressure. 2. Hypernatremia, almost resolved, continue fluid administration. 3. Sepsis Subjective Subjective Sinus rhythm at rate of 67. Self-extubated, currently on NC oxygen. Objective Last 24 Hour Vital Signs Date Time Temp Pulse Resp B/P (MAP) Pulse Ox O2 Delivery O2 Flow Rate FiO2 10/19/18 21:00 67 20 133/75 (94) 100 10/19/18 20:00 97.9 68 19 124/55 (78) 100 10/19/18 20:00 68 10/19/18 20:00 Nasal Cannula 2.0 10/19/18 19:21 100 Nasal Cannula 1.0 24 10/19/18 19:21 66 18 Nasal Cannula 1.0 24 10/19/18 19:21 Nasal Cannula 1.0 24 10/19/18 19:00 63 24 113/55 (74) 100 10/19/18 18:00 71 20 115/54 (74) 100 10/19/18 17:30 95 20 122/60 (80) 100 10/19/18 17:00 73 15 124/78 (93) 100 10/19/18 16:30 71 20 119/58 (78) 100 10/19/18 16:00 99.0 67 25 109/60 (76) 100 10/19/18 16:00 70 10/19/18 16:00 2.0 10/19/18 16:00 Nasal Cannula 2.0 10/19/18 15:00 75 20 119/55 (76) 100 10/19/18 14:00 71 23 113/94 (100) 99 10/19/18 13:00 69 22 118/51 (73) 98 10/19/18 12:30 75 30 107/58 (74) 95 10/19/18 12:00 75 10/19/18 12:00 98.7 75 26 111/55 (73) 96 10/19/18 12:00 Nasal Cannula 2.0 10/19/18 12:00 2.0 10/19/18 11:30 79 28 118/58 (78) 95 10/19/18 11:00 77 25 107/63 (78) 95 10/19/18 10:30 81 26 103/55 (71) 92 10/19/18 10:00 76 24 117/59 (78) 95 10/19/18 09:30 81 22 117/64 (81) 98 10/19/18 09:00 82 19 118/64 (82) 100 10/19/18 08:50 100 Nasal Cannula 2.0 28 10/19/18 08:50 Nasal Cannula 2.0 28 10/19/18 08:30 85 20 114/62 (79) 100 10/19/18 08:00 80 10/19/18 08:00 Nasal Cannula 2.0 10/19/18 08:00 2.0 10/19/18 08:00 102 19 118/55 (76) 100 10/19/18 07:30 72 17 112/58 (76) 100 10/19/18 07:27 Non-Rebreather 15.0 100 10/19/18 07:00 58 16 86/52 (63) 100 10/19/18 06:30 57 16 105/57 (73) 100 10/19/18 06:00 63 16 94/63 (73) 100 10/19/18 05:30 61 16 107/62 (77) 100 10/19/18 05:15 63 16 25 10/19/18 05:00 65 16 107/62 (77) 100 10/19/18 04:30 70 16 104/61 (75) 100 10/19/18 04:00 25 10/19/18 04:00 Endotracheal Tube 10/19/18 04:00 98.7 57 16 95/54 (68) 100 10/19/18 04:00 62 10/19/18 03:30 57 16 95/54 (68) 100 10/19/18 03:10 61 16 25 10/19/18 03:00 60 16 98/62 (74) 100 10/19/18 02:00 61 16 114/50 (71) 100 10/19/18 02:00 98/72 10/19/18 01:00 67 16 105/50 (68) 100 10/19/18 01:00 105/64 10/19/18 00:51 75 17 25 10/19/18 00:30 98.8 73 19 116/63 (80) 100 10/19/18 00:00 84 11/30/18 00:00 25 10/19/18 00:00 83 19 109/61 (77) 100 10/19/18 00:00 109/61 10/19/18 00:00 Endotracheal Tube 10/18/18 23:30 81 18 117/65 (82) 100 10/18/18 23:24 87 23 25 10/18/18 23:00 71 16 124/65 (84) 100 10/18/18 23:00 124/65 10/18/18 22:30 62 16 114/44 (67) 100 Intake and Output 10/18/18 10/19/18 19:00 07:00 Intake Total 1369.32 ml 1302.0 ml Output Total 700 ml 935 ml Balance 669.32 ml 367.0 ml Intake Free Water 215 ml 60 ml IV Total 754.32 ml 642.0 ml Tube Feeding 400 ml 600 ml Output Urine Total 700 ml 935 ml 2D Echo: LVEF 65%, Mild LVH, Grade I LVDD, RVSP 51 mmHg c/w moderate pul HTN Laboratory Tests Test 10/19/18 04:35 10/19/18 08:38 White Blood Count 10.5 K/UL (4.8-10.8) Red Blood Count 3.72 M/UL (4.70-6.10) L Hemoglobin 10.6 G/DL (14.2-18.0) L Hematocrit 32.1 % (42.0-52.0) L Mean Corpuscular Volume 86 FL (80-99) Mean Corpuscular Hemoglobin 28.6 PG (27.0-31.0) Mean Corpuscular Hemoglobin Concent 33.1 G/DL (32.0-36.0) Red Cell Distribution Width 14.1 % (11.6-14.8) Platelet Count 107 K/UL (150-450) L Mean Platelet Volume 6.7 FL (6.5-10.1) Neutrophils (%) (Auto) 84.3 % (45.0-75.0) H Lymphocytes (%) (Auto) 7.2 % (20.0-45.0) L Monocytes (%) (Auto) 8.1 % (1.0-10.0) Eosinophils (%) (Auto) 0.2 % (0.0-3.0) Basophils (%) (Auto) 0.2 % (0.0-2.0) Sodium Level 147 MMOL/L (136-145) H Potassium Level 3.0 MMOL/L (3.5-5.1) L Chloride Level 112 MMOL/L (98-107) H Carbon Dioxide Level 28 MMOL/L (21-32) Anion Gap 7 mmol/L (5-15) Blood Urea Nitrogen 27 mg/dL (7-18) H Creatinine 0.4 MG/DL (0.55-1.30) L Estimat Glomerular Filtration Rate mL/min (>60) Glucose Level 129 MG/DL (74-106) H Calcium Level 8.9 MG/DL (8.5-10.1) Phosphorus Level 2.0 MG/DL (2.5-4.9) L Magnesium Level 1.7 MG/DL (1.8-2.4) L Total Bilirubin 0.6 MG/DL (0.2-1.0) Aspartate Amino Transf (AST/SGOT) 21 U/L (15-37) Alanine Aminotransferase (ALT/SGPT) 20 U/L (12-78) Alkaline Phosphatase 54 U/L (46-116) Total Protein 5.8 G/DL (6.4-8.2) L Albumin 2.5 G/DL (3.4-5.0) L Globulin 3.3 g/dL Albumin/Globulin Ratio 0.8 (1.0-2.7) L Arterial Blood pH 7.329 (7.350-7.450) Arterial Blood Partial Pressure CO2 60.6 mmHg (35.0-45.0) *H Arterial Blood Partial Pressure O2 415.5 mmHg (75.0-100.0) H Arterial Blood HCO3 31.2 mmol/L (22.0-26.0) H Arterial Blood Oxygen Saturation 99.2 % (95-100) Arterial Blood Base Excess 3.8 (-2-2) H Chidi Test Positive Microbiology Date/Time Source Procedure Growth Status 10/17/18 18:00 Nasopharynx Influenza Types A,B Antigen (ADALBERTO) - Final Complete 10/17/18 10:00 Sputum Induced Gram Stain - Final Complete 10/17/18 10:00 Sputum Induced Sputum Culture - Final NORMAL UPPER RESPIRATORY FUENTES PRESENT Complete 10/17/18 06:45 Nasal Nares Left MRSA Culture - Final NO METHICILLIN RESISTANT STAPH AUREUS... Complete 10/17/18 06:45 Rectum - Final NO CARBAPENEM-RESISTANT ENTEROBACTERI... Complete 10/17/18 06:00 Rectum VRE Culture - Final Enterococcus Faecalis - Vre Complete 10/17/18 03:05 Arm Right Blood Culture - Preliminary NO GROWTH AFTER 48 HOURS Resulted 10/17/18 02:55 Arm Left Blood Culture - Preliminary NO GROWTH AFTER 48 HOURS Resulted Objective HEENT: Atraumatic and normocephalic. Anicteric. Bitemporal wasting. NECK: JVP is <5cm, No carotid bruit. CVS: Normal S1 and S2. Regular rate and rhythm. No murmurs, gallops, or rubs. Distant heart sounds. PMI is at fourth intercostal space in midclavicular line. LUNGS: Diminished breath sounds throughout both lungs. ABDOMEN: Soft, nontender, and nondistended. No hepatosplenomegaly. Positive bowel sounds. EXTREMITIES: No evidence of edema, clubbing, or cyanosis. Toby Sy MD Oct 19, 2018 22:29
[2018-10-19] MEDS: DOPamine 400mg/250ml 250 ML IV SCH (22:30)
[2018-10-20] VITALS (19 sets, daily range): BP systolic 98–159; BP diastolic 49–81
[2018-10-20] MEDS: D5 1/2NS 1,000 ML IV SCH ×2 (04:45→15:39)
[2018-10-20 05:01] LABS: BASOPHILS % (AUTO) 0.2 % (0.0-2.0); EOSINOPHILS % (AUTO) 0.1 % (0.0-3.0); HEMOGLOBIN 11.4 G/DL (14.2-18.0); MEAN CORPUSCULAR VOLUME 86 FL (80-99); MONOCYTES % (AUTO) 9.5 % (1.0-10.0); NEUTROPHILS % (AUTO) 81.2 % (45.0-75.0); PLATELET COUNT 128 K/UL (150-450); RED BLOOD COUNT 4.07 M/UL (4.70-6.10); RED CELL DISTRIBUTION WIDTH 13.7 % (11.6-14.8); WHITE BLOOD COUNT 8.5 K/UL (4.8-10.8)
[2018-10-20 05:30] LABS: ALANINE AMINOTRANSFERASE 23 U/L (12-78); ALBUMIN 2.8 G/DL (3.4-5.0); ALBUMIN/GLOBULIN RATIO 0.8 (1.0-2.7); ALKALINE PHOSPHATASE 61 U/L (46-116); ANION GAP 5 mmol/L (5-15); ASPARTATE AMINO TRANSFERASE 23 U/L (15-37); BILIRUBIN,TOTAL 0.8 MG/DL (0.2-1.0); BLOOD UREA NITROGEN 16 mg/dL (7-18); CALCIUM 8.8 MG/DL (8.5-10.1); CARBON DIOXIDE 32 MMOL/L (21-32); CHLORIDE 109 MMOL/L (98-107); CREATININE 0.4 MG/DL (0.55-1.30); PHOSPHORUS 2.1 MG/DL (2.5-4.9); POTASSIUM 3.5 MMOL/L (3.5-5.1); SODIUM 146 MMOL/L (136-145)
[2018-10-20] MEDS: NovoLOG Insulin Flexpen SUBQ SCH ×4 (06:30→21:00)
--- NOTE | 2018-10-20 07:28 | Pulmonolgy Critical Care Note ---
Critical Care - Asmt/Plan Assessment/Plan: ASSESSMENT Acute hypoxemic and hypercapnic respiratory failure, requiring intubation, s/p self extubation 10/19 Acute toxic encephalopathy, likely secondary to severe hypercapnia -resolving Hypotension/Shock -resolved COPD exacerbation Emphysema/COPD Moderate pulmonary hypertension Severe protein calorie malnutrition Psychosis PLAN OF CARE ICU care O 2 titrate to keep sat above 90% pulmonary toilet ABG this am on 1 L NC minimal hypercapnia, likely chronic fup with chest x-ray on Monday DVT prophylaxis BP stabilized, closely monitor hemodynamic status ,off pressors IV steroids and taper influenza screen test negative blood and sputum cx negative abx as per ID recs , BC prel neg, sputum cx negative, influenza screen negative BS management with SSI swallow eval ( can't be done till Monday) for now start pureed diet with strict asp precautions and 1 to 1 feeding gentle IV hydration Monitor renal parameters ,electrolytes, corrected electrolytes prn acute encephalopathy likely secondary to severe hypercapnia -resolving CT of the head -no acute intracranial pathology Bowel regimen Reed Repairer recommendation regarding nutritional supplements transfer to [facility] case discussed and evaluated by supervising physician Critical Care - Objective Last 24 Hour Vital Signs Date Time Temp Pulse Resp B/P (MAP) Pulse Ox O2 Delivery O2 Flow Rate FiO2 10/20/18 07:09 Nasal Cannula 1.0 24 10/20/18 07:09 100 Nasal Cannula 1.0 24 10/20/18 07:00 69 22 132/56 (81) 100 10/20/18 06:00 64 22 129/66 (87) 100 10/20/18 05:00 68 17 134/72 (92) 100 10/20/18 04:00 98.0 69 18 159/81 (107) 100 10/20/18 04:00 Nasal Cannula 2.0 10/20/18 04:00 71 10/20/18 03:00 67 17 139/70 (93) 100 10/20/18 02:00 60 19 134/69 (90) 100 10/20/18 01:00 72 19 145/76 (99) 100 10/20/18 00:00 63 10/20/18 00:00 Nasal Cannula 2.0 10/20/18 00:00 98.0 73 21 134/70 (91) 100 10/19/18 23:00 68 20 138/72 (94) 100 11/30/18 22:30 126/65 10/19/18 22:30 136/71 10/19/18 22:00 70 20 135/71 (92) 100 10/19/18 21:00 67 20 133/75 (94) 100 10/19/18 20:00 97.9 68 19 124/55 (78) 100 10/19/18 20:00 68 10/19/18 20:00 Nasal Cannula 2.0 10/19/18 19:21 100 Nasal Cannula 1.0 24 10/19/18 19:21 66 18 Nasal Cannula 1.0 24 10/19/18 19:21 Nasal Cannula 1.0 24 10/19/18 19:00 63 24 113/55 (74) 100 10/19/18 18:00 71 20 115/54 (74) 100 10/19/18 17:30 95 20 122/60 (80) 100 10/19/18 17:00 73 15 124/78 (93) 100 10/19/18 16:30 71 20 119/58 (78) 100 10/19/18 16:00 99.0 67 25 109/60 (76) 100 10/19/18 16:00 70 10/19/18 16:00 2.0 10/19/18 16:00 Nasal Cannula 2.0 10/19/18 15:00 75 20 119/55 (76) 100 10/19/18 14:00 71 23 113/94 (100) 99 10/19/18 13:00 69 22 118/51 (73) 98 10/19/18 12:30 75 30 107/58 (74) 95 10/19/18 12:00 75 10/19/18 12:00 98.7 75 26 111/55 (73) 96 10/19/18 12:00 Nasal Cannula 2.0 10/19/18 12:00 2.0 10/19/18 11:30 79 28 118/58 (78) 95 10/19/18 11:00 77 25 107/63 (78) 95 10/19/18 10:30 81 26 103/55 (71) 92 10/19/18 10:00 76 24 117/59 (78) 95 10/19/18 09:30 81 22 117/64 (81) 98 10/19/18 09:00 82 19 118/64 (82) 100 10/19/18 08:50 100 Nasal Cannula 2.0 28 10/19/18 08:50 Nasal Cannula 2.0 28 10/19/18 08:30 85 20 114/62 (79) 100 10/19/18 08:00 80 10/19/18 08:00 Nasal Cannula 2.0 10/19/18 08:00 2.0 10/19/18 08:00 102 19 118/55 (76) 100 10/19/18 07:30 72 17 112/58 (76) 100 10/19/18 07:27 Non-Rebreather 15.0 100 Status: awake, other - cachectic Condition: improving HEENT: atraumatic Lungs: other - decreased BS, use of intercostal muscles with breathing, " pigeon "chest Heart: HR/BP stable, regular Abdomen: soft, non-tender, active bowel sounds Extremities: no C/C/E Micro: Microbiology Date/Time Source Procedure Growth Status 10/17/18 18:00 Nasopharynx Influenza Types A,B Antigen (ADALBERTO) - Final Complete 10/17/18 10:00 Sputum Induced Gram Stain - Final Complete 10/17/18 10:00 Sputum Induced Sputum Culture - Final NORMAL UPPER RESPIRATORY FUENTES PRESENT Complete Accucheck: 100 Critical Care - Subjective ROS Limited/Unobtainable: Yes Interval Events: s/p self extubation 10/19, placed on NRM initially with ABG with hypercapnia this am on O2 via NC, sat stable afebrile, no leukocytosis Condition: improving EKG Rhythm: Sinus Bradycardia - HR 58 Sputum Amount: None PEEP: 0.0 Fluids: D51/2 NS at 60 Tube Feeding Amount: 55 I&O: Intake and Output 10/19/18 10/20/18 19:00 07:00 Intake Total 955 ml 1320 ml Output Total 755 ml 800 ml Balance 200 ml 520 ml IV Total 900 ml 660 ml Tube Feeding 55 ml 660 ml Output Urine Total 755 ml 800 ml # Bowel Movements 1 CXR: 10/19 Stable satisfactory positions of nasogastric tube and right jugular central venous catheter. Lungs remain hyperinflated. The heart size is normal. Previously demonstrated endotracheal tube is no longer present. Right upper chest wall deformity is again demonstrated Love Mcpherson BULK SYSTEM OPERATOR Oct 20, 2018 07:28
[2018-10-20] MEDS ORDERED: Albuterol/Ipratropium 3ml neb HHN PRN ×2 (07:31→15:20)
--- NOTE | 2018-10-20 08:28 | General Progress Note ---
Assessment/Plan Problem List: (1) Sepsis ICD Codes: A41.9 - Sepsis, unspecified organism SNOMED: 10830492 (2) COPD (chronic obstructive pulmonary disease) ICD Codes: J44.9 - Chronic obstructive pulmonary disease, unspecified SNOMED: 52768995 (3) Psychoses ICD Codes: F29 - Unspecified psychosis not due to a substance or known physiological condition SNOMED: 14732922 (4) Protein-calorie malnutrition, severe ICD Codes: E43 - Unspecified severe protein-calorie malnutrition SNOMED: 053349640 (5) Acute respiratory failure ICD Codes: J96.00 - Acute respiratory failure, unspecified whether with hypoxia or hypercapnia SNOMED: 03415067 Status: stable, progressing Assessment/Plan o2 pulm tx abx cbc bmp am ltach eval psyc eval Subjective Constitutional: Reports: weakness Allergies: Coded Allergies: No Known Allergies (Verified , 11/08/11) All Systems: reviewed and negative except above Subjective o2nc sleepy in icu Objective Last 24 Hour Vital Signs Date Time Temp Pulse Resp B/P (MAP) Pulse Ox O2 Delivery O2 Flow Rate FiO2 10/20/18 07:09 Nasal Cannula 1.0 24 10/20/18 07:09 100 Nasal Cannula 1.0 24 10/20/18 07:00 69 22 132/56 (81) 100 10/20/18 06:00 64 22 129/66 (87) 100 10/20/18 05:00 68 17 134/72 (92) 100 10/20/18 04:00 98.0 69 18 159/81 (107) 100 10/20/18 04:00 Nasal Cannula 2.0 10/20/18 04:00 71 10/20/18 03:00 67 17 139/70 (93) 100 10/20/18 02:00 60 19 134/69 (90) 100 10/20/18 01:00 72 19 145/76 (99) 100 10/20/18 00:00 63 10/20/18 00:00 Nasal Cannula 2.0 10/20/18 00:00 98.0 73 21 134/70 (91) 100 10/19/18 23:00 68 20 138/72 (94) 100 10/19/18 22:30 126/65 10/19/18 22:30 136/71 10/19/18 22:00 70 20 135/71 (92) 100 10/19/18 21:00 67 20 133/75 (94) 100 10/19/18 20:00 97.9 68 19 124/55 (78) 100 10/19/18 20:00 68 10/19/18 20:00 Nasal Cannula 2.0 10/19/18 19:21 100 Nasal Cannula 1.0 24 10/19/18 19:21 66 18 Nasal Cannula 1.0 24 10/19/18 19:21 Nasal Cannula 1.0 24 10/19/18 19:00 63 24 113/55 (74) 100 10/19/18 18:00 71 20 115/54 (74) 100 10/19/18 17:30 95 20 122/60 (80) 100 10/19/18 17:00 73 15 124/78 (93) 100 10/19/18 16:30 71 20 119/58 (78) 100 10/19/18 16:00 99.0 67 25 109/60 (76) 100 10/19/18 16:00 70 10/19/18 16:00 2.0 10/19/18 16:00 Nasal Cannula 2.0 10/19/18 15:00 75 20 119/55 (76) 100 10/19/18 14:00 71 23 113/94 (100) 99 10/19/18 13:00 69 22 118/51 (73) 98 10/19/18 12:30 75 30 107/58 (74) 95 10/19/18 12:00 75 10/19/18 12:00 98.7 75 26 111/55 (73) 96 10/19/18 12:00 Nasal Cannula 2.0 10/19/18 12:00 2.0 10/19/18 11:30 79 28 118/58 (78) 95 10/19/18 11:00 77 25 107/63 (78) 95 10/19/18 10:30 81 26 103/55 (71) 92 10/19/18 10:00 76 24 117/59 (78) 95 10/19/18 09:30 81 22 117/64 (81) 98 10/19/18 09:00 82 19 118/64 (82) 100 10/19/18 08:50 100 Nasal Cannula 2.0 28 10/19/18 08:50 Nasal Cannula 2.0 28 10/19/18 08:30 85 20 114/62 (79) 100 Intake and Output 10/19/18 10/20/18 19:00 07:00 Intake Total 955 ml 1320 ml Output Total 755 ml 800 ml Balance 200 ml 520 ml IV Total 900 ml 660 ml Tube Feeding 55 ml 660 ml Output Urine Total 755 ml 800 ml # Bowel Movements 1 Laboratory Tests 10/19/18 08:38: Arterial Blood pH 7.329L, Arterial Blood Partial Pressure CO2 60.6*H, Arterial Blood Partial Pressure O2 415.5H, Arterial Blood HCO3 31.2H, Arterial Blood Oxygen Saturation 99.2, Arterial Blood Base Excess 3.8H, Chidi Test Positive 10/20/18 04:00: White Blood Count 8.5, Red Blood Count 4.07L, Hemoglobin 11.4L, Hematocrit 35.0L , Mean Corpuscular Volume 86, Mean Corpuscular Hemoglobin 28.0, Mean Corpuscular Hemoglobin Concent 32.4, Red Cell Distribution Width 13.7, Platelet Count 128L, Mean Platelet Volume 6.9, Neutrophils (%) (Auto) 81.2H, Lymphocytes (%) (Auto) 9.0L, Monocytes (%) (Auto) 9.5, Eosinophils (%) (Auto) 0.1, Basophils (%) (Auto) 0.2, Sodium Level 146H, Potassium Level 3.5, Chloride Level 109H, Carbon Dioxide Level 32, Anion Gap 5, Blood Urea Nitrogen 16, Creatinine 0.4L, Estimat Glomerular Filtration Rate , Glucose Level 87, Calcium Level 8.8, Phosphorus Level 2.1L, Magnesium Level 1.8, Total Bilirubin 0.8, Aspartate Amino Transf (AST/SGOT) 23, Alanine Aminotransferase (ALT/SGPT) 23, Alkaline Phosphatase 61, Total Protein 6.5, Albumin 2.8L, Globulin 3.7, Albumin/ Globulin Ratio 0.8L 10/20/18 07:45: Arterial Blood pH 7.352, Arterial Blood Partial Pressure CO2 51.1H, Arterial Blood Partial Pressure O2 94.3, Arterial Blood HCO3 27.7H, Arterial Blood Oxygen Saturation 96.7, Arterial Blood Base Excess 1.4, Chidi Test Positive Height (Feet): 5 Height (Inches): 11.00 Weight (Pounds): 127 General Appearance: lethargic EENT: normal ENT inspection Neck: normal alignment Cardiovascular: normal peripheral pulses, normal rate, regular rhythm Respiratory/Chest: chest wall non-tender, decreased breath sounds Abdomen: normal bowel sounds, non tender, soft Extremities: normal inspection Edema: no edema noted Arm (L), no edema noted Arm (R), no edema noted Leg (L), no edema noted Leg (R), no edema noted Pedal (L), no edema noted Pedal (R), no edema noted Generalized Neurologic: motor weakness Skin: normal pigmentation, warm/dry Bob Church DO Oct 20, 2018 08:28
[2018-10-20] MEDS: Solu-MEDROL 125mg Inj IV SCH (08:43)
[2018-10-20] MEDS: Heparin 5000 units/ml inj SUBQ SCH ×2 (08:46→23:31)
--- NOTE | 2018-10-20 11:28 | Infectious Diseases Prog Note ---
Assessment/Plan Assessment/Plan Assessment: Acute hypoxic respiratory s/p intubation 10/17; extubated 10/19 COPD exacerbation- no evidence of PNA. \ -influenza sc neg -sp cx NTD -CXR: Hyperinflation, as in COPD, unchanged over one day. No acute process. Afebrile No leukocytosis schizophrenia emphysema/COPD blindness PVD HLD PNA GERD SNF resident Plan: -Continue Levaquin #4/5 for COPD exacerbation -10/18 SP Tamiflu #2 -10/17 SP Zosyn #1, Unasyn x1 -f/u cx -Monitor CBC/CMP, temperatures -Aspiration precautions Thank you for this consultation. Will continue to follow along with you. Discussed with RN. Subjective Allergies: Coded Allergies: No Known Allergies (Verified , 11/08/11) Subjective afebrile on 2l nC no leukocytosis remains in ICU Objective Vital Signs Last 24 Hour Vital Signs Date Time Temp Pulse Resp B/P (MAP) Pulse Ox O2 Delivery O2 Flow Rate FiO2 10/20/18 11:00 59 20 115/58 (77) 100 10/20/18 10:30 59 20 116/49 (71) 98 10/20/18 10:00 60 22 115/57 (76) 98 10/20/18 09:00 68 14 130/62 (84) 99 10/20/18 08:00 Nasal Cannula 2.0 10/20/18 08:00 74 19 119/56 (77) 100 10/20/18 07:09 Nasal Cannula 1.0 24 10/20/18 07:09 100 Nasal Cannula 1.0 24 10/20/18 07:00 69 22 132/56 (81) 100 10/20/18 06:00 64 22 129/66 (87) 100 10/20/18 05:00 68 17 134/72 (92) 100 10/20/18 04:00 98.0 69 18 159/81 (107) 100 10/20/18 04:00 Nasal Cannula 2.0 10/20/18 04:00 71 10/20/18 03:00 67 17 139/70 (93) 100 10/20/18 02:00 60 19 134/69 (90) 100 10/20/18 01:00 72 19 145/76 (99) 100 10/20/18 00:00 63 10/20/18 00:00 Nasal Cannula 2.0 10/20/18 00:00 98.0 73 21 134/70 (91) 100 10/19/18 23:00 68 20 138/72 (94) 100 10/19/18 22:30 126/65 10/19/18 22:30 136/71 10/19/18 22:00 70 20 135/71 (92) 100 10/19/18 21:00 67 20 133/75 (94) 100 10/19/18 20:00 97.9 68 19 124/55 (78) 100 10/19/18 20:00 68 10/19/18 20:00 Nasal Cannula 2.0 10/19/18 19:21 100 Nasal Cannula 1.0 24 10/19/18 19:21 66 18 Nasal Cannula 1.0 24 10/19/18 19:21 Nasal Cannula 1.0 24 10/19/18 19:00 63 24 113/55 (74) 100 10/19/18 18:00 71 20 115/54 (74) 100 10/19/18 17:30 95 20 122/60 (80) 100 10/19/18 17:00 73 15 124/78 (93) 100 10/19/18 16:30 71 20 119/58 (78) 100 10/19/18 16:00 99.0 67 25 109/60 (76) 100 10/19/18 16:00 70 10/19/18 16:00 2.0 10/19/18 16:00 Nasal Cannula 2.0 10/19/18 15:00 75 20 119/55 (76) 100 10/19/18 14:00 71 23 113/94 (100) 99 10/19/18 13:00 69 22 118/51 (73) 98 10/19/18 12:30 75 30 107/58 (74) 95 10/19/18 12:00 75 10/19/18 12:00 98.7 75 26 111/55 (73) 96 10/19/18 12:00 Nasal Cannula 2.0 10/19/18 12:00 2.0 10/19/18 11:30 79 28 118/58 (78) 95 Height (Feet): 5 Height (Inches): 11.00 Weight (Pounds): 127 Objective General Appearance: severe distress, cachetic, Chronically Ill Neck: limited range of motion Respiratory: decreased breath sounds, wheezing Cardiovascular #1: normal peripheral pulses, regular rate, rhythm, no edema Gastrointestinal: normal inspection Neurologic: normal inspection, alert, oriented x3 Skin: normal inspection Microbiology Date/Time Source Procedure Growth Status 10/17/18 18:00 Nasopharynx Influenza Types A,B Antigen (ADALBERTO) - Final Complete Laboratory Tests Test 10/20/18 04:00 10/20/18 07:45 White Blood Count 8.5 K/UL (4.8-10.8) Red Blood Count 4.07 M/UL (4.70-6.10) L Hemoglobin 11.4 G/DL (14.2-18.0) L Hematocrit 35.0 % (42.0-52.0) L Mean Corpuscular Volume 86 FL (80-99) Mean Corpuscular Hemoglobin 28.0 PG (27.0-31.0) Mean Corpuscular Hemoglobin Concent 32.4 G/DL (32.0-36.0) Red Cell Distribution Width 13.7 % (11.6-14.8) Platelet Count 128 K/UL (150-450) L Mean Platelet Volume 6.9 FL (6.5-10.1) Neutrophils (%) (Auto) 81.2 % (45.0-75.0) H Lymphocytes (%) (Auto) 9.0 % (20.0-45.0) L Monocytes (%) (Auto) 9.5 % (1.0-10.0) Eosinophils (%) (Auto) 0.1 % (0.0-3.0) Basophils (%) (Auto) 0.2 % (0.0-2.0) Sodium Level 146 MMOL/L (136-145) H Potassium Level 3.5 MMOL/L (3.5-5.1) Chloride Level 109 MMOL/L (98-107) H Carbon Dioxide Level 32 MMOL/L (21-32) Anion Gap 5 mmol/L (5-15) Blood Urea Nitrogen 16 mg/dL (7-18) Creatinine 0.4 MG/DL (0.55-1.30) L Estimat Glomerular Filtration Rate mL/min (>60) Glucose Level 87 MG/DL (74-106) Calcium Level 8.8 MG/DL (8.5-10.1) Phosphorus Level 2.1 MG/DL (2.5-4.9) L Magnesium Level 1.8 MG/DL (1.8-2.4) Total Bilirubin 0.8 MG/DL (0.2-1.0) Aspartate Amino Transf (AST/SGOT) 23 U/L (15-37) Alanine Aminotransferase (ALT/SGPT) 23 U/L (12-78) Alkaline Phosphatase 61 U/L (46-116) Total Protein 6.5 G/DL (6.4-8.2) Albumin 2.8 G/DL (3.4-5.0) L Globulin 3.7 g/dL Albumin/Globulin Ratio 0.8 (1.0-2.7) L Arterial Blood pH 7.352 (7.350-7.450) Arterial Blood Partial Pressure CO2 51.1 mmHg (35.0-45.0) H Arterial Blood Partial Pressure O2 94.3 mmHg (75.0-100.0) Arterial Blood HCO3 27.7 mmol/L (22.0-26.0) H Arterial Blood Oxygen Saturation 96.7 % (95-100) Arterial Blood Base Excess 1.4 (-2-2) Chidi Test Positive Current Medications Medications (Trade) Dose Ordered Sig/Nkechi Route PRN Reason Start Time Stop Time Status Last Admin Dose Admin Albuterol/ Ipratropium (Albuterol/ Ipratropium) 3 ml Q4H PRN HHN dyspnea 10/20/18 07:31 10/25/18 07:30 Chlorhexidine Gluconate (Tita-Hex 2%) 1 applic DAILY@1999 TOPIC 10/18/18 20:00 11/17/18 19:59 10/19/18 20:58 Dextrose (Dextrose 50%) 25 ml Q30M PRN IV Hypoglycemia 10/17/18 08:30 11/16/18 08:23 Dextrose (Dextrose 50%) 50 ml Q30M PRN IV hypoglycemia 10/17/18 08:30 11/16/18 08:29 Dextrose/Sodium Chloride 1,000 ml @ 60 mls/hr [id number] IV 10/18/18 03:30 11/17/18 03:29 10/20/18 04:45 Dopamine HCl/ Dextrose 250 ml @ 0 mls/hr Q24H IV 10/17/18 22:30 11/16/18 22:29 10/17/18 23:17 Heparin Sodium (Porcine) (Heparin 5000 units/ml) 5,000 units EVERY 12 HOURS SUBQ 10/17/18 09:00 11/16/18 08:59 10/20/18 08:46 Insulin Aspart (NovoLOG) BEFORE MEALS AND HS SUBQ 10/17/18 11:30 11/16/18 11:29 10/19/18 17:06 Levofloxacin 150 ml @ 100 mls/hr Q24H IVPB 10/17/18 22:00 10/24/18 21:59 10/19/18 22:18 Lorazepam (Ativan 2mg/ml 1ml) 2 mg Q4H PRN IV For Anxiety 10/17/18 08:30 10/24/18 08:29 10/18/18 23:50 Methylprednisolone Sodium Succinate (Solu-MEDROL) 60 mg DAILY IV 10/19/18 09:00 11/16/18 11:59 10/20/18 08:43 Morphine Sulfate (Morphine Sulfate) 2 mg Q4H PRN IVP MODERATE PAIN 10/17/18 08:30 10/24/18 08:29 Morphine Sulfate (Morphine Sulfate) 4 mg Q4H PRN IVP SEVERE PAIN 10/17/18 08:30 10/24/18 08:29 Nitroglycerin (Ntg) 0.4 mg Q5M X 3 DOSES PRN SL Prn Chest Pain 10/17/18 08:30 11/16/18 08:29 Ondansetron HCl (Zofran) 4 mg Q6H PRN IVP Nausea & Vomiting 10/17/18 08:30 11/16/18 08:29 Chio Issa M.D. Oct 20, 2018 11:28
--- NOTE | 2018-10-20 14:26 | Cardiology Progress Note ---
Assessment/Plan Assessment/Plan 1. Hypercapnic hypoxic respiratory failure, resolved, self-extubated, most likely secondary to acute exacerbation of COPD, 2D echocardiography reveals normal LV systolic function with LVEF at 65% with normal intra-cardiac filling pressure. 2. Hypernatremia, almost resolved, continue fluid administration. 3. Moderate pulmonary HTN likely due to COPD. Subjective Subjective Sinus bradycardia at 59. On NC oxygen 2 lit/min. Objective Last 24 Hour Vital Signs Date Time Temp Pulse Resp B/P (MAP) Pulse Ox O2 Delivery O2 Flow Rate FiO2 10/20/18 13:00 61 24 98/49 (65) 99 10/20/18 12:01 78 10/20/18 12:00 Nasal Cannula 2.0 10/20/18 12:00 98.3 63 17 130/58 (82) 100 10/20/18 11:32 10/20/18 11:00 59 20 115/58 (77) 100 10/20/18 10:00 60 22 115/57 (76) 98 10/20/18 09:00 68 14 130/62 (84) 99 10/20/18 08:03 66 10/20/18 08:00 Nasal Cannula 2.0 10/20/18 08:00 98.0 74 19 119/56 (77) 100 10/20/18 07:09 Nasal Cannula 1.0 24 10/20/18 07:09 100 Nasal Cannula 1.0 24 10/20/18 07:00 69 22 132/56 (81) 100 10/20/18 06:00 64 22 129/66 (87) 100 10/20/18 05:00 68 17 134/72 (92) 100 10/20/18 04:00 98.0 69 18 159/81 (107) 100 10/20/18 04:00 Nasal Cannula 2.0 10/20/18 04:00 71 10/20/18 03:00 67 17 139/70 (93) 100 10/20/18 02:00 60 19 134/69 (90) 100 10/20/18 01:00 72 19 145/76 (99) 100 10/20/18 00:00 63 10/20/18 00:00 Nasal Cannula 2.0 10/20/18 00:00 98.0 73 21 134/70 (91) 100 10/19/18 23:00 68 20 138/72 (94) 100 10/19/18 22:30 126/65 10/19/18 22:30 136/71 10/19/18 22:00 70 20 135/71 (92) 100 10/19/18 21:00 67 20 133/75 (94) 100 10/19/18 20:00 97.9 68 19 124/55 (78) 100 10/19/18 20:00 68 10/19/18 20:00 Nasal Cannula 2.0 10/19/18 19:21 100 Nasal Cannula 1.0 24 10/19/18 19:21 66 18 Nasal Cannula 1.0 24 10/19/18 19:21 Nasal Cannula 1.0 24 10/19/18 19:00 63 24 113/55 (74) 100 10/19/18 18:00 71 20 115/54 (74) 100 10/19/18 17:30 95 20 122/60 (80) 100 10/19/18 17:00 73 15 124/78 (93) 100 10/19/18 16:30 71 20 119/58 (78) 100 10/19/18 16:00 99.0 67 25 109/60 (76) 100 10/19/18 16:00 70 10/19/18 16:00 2.0 10/19/18 16:00 Nasal Cannula 2.0 10/19/18 15:00 75 20 119/55 (76) 100 Intake and Output 10/19/18 10/20/18 19:00 07:00 Intake Total 955 ml 1380 ml Output Total 755 ml 800 ml Balance 200 ml 580 ml IV Total 900 ml 720 ml Tube Feeding 55 ml 660 ml Output Urine Total 755 ml 800 ml # Bowel Movements 1 2D Echo: LVEF 65%, Mild LVH, Grade I LVDD, RVSP 51 mmHg c/w moderate pul HTN Laboratory Tests Test 10/20/18 04:00 10/20/18 07:45 White Blood Count 8.5 K/UL (4.8-10.8) Red Blood Count 4.07 M/UL (4.70-6.10) L Hemoglobin 11.4 G/DL (14.2-18.0) L Hematocrit 35.0 % (42.0-52.0) L Mean Corpuscular Volume 86 FL (80-99) Mean Corpuscular Hemoglobin 28.0 PG (27.0-31.0) Mean Corpuscular Hemoglobin Concent 32.4 G/DL (32.0-36.0) Red Cell Distribution Width 13.7 % (11.6-14.8) Platelet Count 128 K/UL (150-450) L Mean Platelet Volume 6.9 FL (6.5-10.1) Neutrophils (%) (Auto) 81.2 % (45.0-75.0) H Lymphocytes (%) (Auto) 9.0 % (20.0-45.0) L Monocytes (%) (Auto) 9.5 % (1.0-10.0) Eosinophils (%) (Auto) 0.1 % (0.0-3.0) Basophils (%) (Auto) 0.2 % (0.0-2.0) Sodium Level 146 MMOL/L (136-145) H Potassium Level 3.5 MMOL/L (3.5-5.1) Chloride Level 109 MMOL/L (98-107) H Carbon Dioxide Level 32 MMOL/L (21-32) Anion Gap 5 mmol/L (5-15) Blood Urea Nitrogen 16 mg/dL (7-18) Creatinine 0.4 MG/DL (0.55-1.30) L Estimat Glomerular Filtration Rate mL/min (>60) Glucose Level 87 MG/DL (74-106) Calcium Level 8.8 MG/DL (8.5-10.1) Phosphorus Level 2.1 MG/DL (2.5-4.9) L Magnesium Level 1.8 MG/DL (1.8-2.4) Total Bilirubin 0.8 MG/DL (0.2-1.0) Aspartate Amino Transf (AST/SGOT) 23 U/L (15-37) Alanine Aminotransferase (ALT/SGPT) 23 U/L (12-78) Alkaline Phosphatase 61 U/L (46-116) Total Protein 6.5 G/DL (6.4-8.2) Albumin 2.8 G/DL (3.4-5.0) L Globulin 3.7 g/dL Albumin/Globulin Ratio 0.8 (1.0-2.7) L Arterial Blood pH 7.352 (7.350-7.450) Arterial Blood Partial Pressure CO2 51.1 mmHg (35.0-45.0) H Arterial Blood Partial Pressure O2 94.3 mmHg (75.0-100.0) Arterial Blood HCO3 27.7 mmol/L (22.0-26.0) H Arterial Blood Oxygen Saturation 96.7 % (95-100) Arterial Blood Base Excess 1.4 (-2-2) Chidi Test Positive Microbiology Date/Time Source Procedure Growth Status 10/17/18 18:00 Nasopharynx Influenza Types A,B Antigen (ADALBERTO) - Final Complete Objective HEENT: Atraumatic and normocephalic. Anicteric. Bitemporal wasting. NECK: JVP is <5cm, No carotid bruit. CVS: Normal S1 and S2. Regular rate and rhythm. No murmurs, gallops, or rubs. Distant heart sounds. PMI is at fourth intercostal space in midclavicular line. LUNGS: Diminished breath sounds throughout both lungs. ABDOMEN: Soft, nontender, and nondistended. No hepatosplenomegaly. Positive bowel sounds. EXTREMITIES: No evidence of edema, clubbing, or cyanosis. Toby Sy MD Oct 20, 2018 14:26
--- NOTE | 2018-10-20 15:02 | Diagnostic Imaging Report ---
EXAM: XR Chest, 1 View CLINICAL HISTORY: DYSPNEA TECHNIQUE: Frontal view of the chest. COMPARISON: Chest x-ray 10/19/18 728 FINDINGS: Lungs: Hyperinflated lungs may be COPD. Lungs clear. Pleural space: Unremarkable. No pneumothorax. Heart: Unremarkable. No cardiomegaly. Mediastinum: Unremarkable. Bones/joints: Old right upper rib fractures. Tubes, lines and devices: Stable right IJ catheter and NG tube. IMPRESSION: Hyperinflated lungs may be COPD. No acute process.
[2018-10-20] MEDS ORDERED: Nitroglycerin Subl 0.4mg tab SL PRN (15:21)
[2018-10-20] MEDS ORDERED: LORazepam Inj 2mg/ml 1ml IV PRN (15:21)
[2018-10-20] MEDS ORDERED: Morphine Sulfate 4mg/ml Inj (IV/IM USE ONLY) IVP PRN (15:22)
[2018-10-20] MEDS ORDERED: Morphine Sulfate 2mg/ml Inj IVP PRN (15:22)
[2018-10-20] MEDS ORDERED: Dyna-Hex 2% Top Sol 2oz TOPIC SCH (20:00)
[2018-10-20] MEDS ORDERED: DOPamine 400mg/250ml 250 ML IV SCH (22:30)
[2018-10-20] MEDS: Pantoprazole Inj IVP SCH (23:29)
[2018-10-21] VITALS: BP 125/65
--- NOTE | 2018-10-21 02:00 | Consultation ---
DATE OF CONSULTATION: 10/20/2018 NOTE: POOR AUDIO PSYCHOTHERAPY CONSULTATION PROGRESS NOTE CONSULTING PHYSICIAN: Chrissy Hinton PsyD. TREATING ATTENDING PHYSICIAN: Bob Church D.O. HISTORY OF PRESENT ILLNESS: The patient is a 73-year-old male patient. The patient is currently in the ICU. He has been very agitated, irritable, and restless. He has been pulling out his tube, very confused and constantly asking for the tube to be taken out; however, he has very poor insight into his current medical condition as well as poor his current which is being treated there as he constantly asks for the removal of the tube, but does not know why he has this or why is he in the hospital setting. The patient was initially brought in for respiratory failure. He has confusion, disorganization, and agitation. He is referred for psychotherapeutic services. This clinician assessed the patient. The patient is responsive to his name. He is able to communicate tube removed. The patient has been very anxious, irritable, agitated, and restless. He has been lethargic as well. At this time, the patient is unaware why he was brought to the hospital. He cannot recall where he was living prior to the hospitalization . He continues to be restless and irritable. At this time, there is no indication of suicidal or homicidal thoughts of ideation. There is no indication of auditory or visual hallucinations; however, the patient is confused. PAST MEDICAL HISTORY: Includes COPD, psychosis, and malnutrition. ALLERGIES: The patient has no known drug allergies. SUBSTANCE ABUSE HISTORY: There is no history of alcohol use, illicit substance use, or smoking cigarettes. PSYCHIATRIC HISTORY: The patient does have a history of psychosis. SOCIAL HISTORY: The patient is a 73-year-old male from [facility]. Financially sustained through [facility]. MENTAL STATUS EXAMINATION: The patient is alert and oriented to person. Mood is anxious. Affect is congruent. Thought process is disorganized. Thought content, confused. The patient has poor attention and concentration. Poor insight, judgment, and impulse control. DIAGNOSIS: Schizoaffective disorder, bipolar type. PLAN: This clinician assessed this patient. Provided the patient with reality orientation . I encouraged the patient to participate in treatment milieu. . Continue with behavioral management. This clinician has reviewed the patient's chart and discussed with treatment team. . Chrissy Hinton PsyD. DR: ALBA JOB#: [id number] CC:
[2018-10-21 04:00] VITALS: BP 142/82
[2018-10-21 04:56] LABS: BASOPHILS % (AUTO) 0.5 % (0.0-2.0); EOSINOPHILS % (AUTO) 0.1 % (0.0-3.0); HEMATOCRIT 34.6 % (42.0-52.0); HEMOGLOBIN 11.5 G/DL (14.2-18.0); LYMPHOCYTES % (AUTO) 10.9 % (20.0-45.0); MEAN CORPUSCULAR VOLUME 86 FL (80-99); MONOCYTES % (AUTO) 9.2 % (1.0-10.0); NEUTROPHILS % (AUTO) 79.4 % (45.0-75.0); PLATELET COUNT 149 K/UL (150-450); RED BLOOD COUNT 4.02 M/UL (4.70-6.10); RED CELL DISTRIBUTION WIDTH 13.9 % (11.6-14.8); WHITE BLOOD COUNT 8.8 K/UL (4.8-10.8)
[2018-10-21 05:19] LABS: ANION GAP 2 mmol/L (5-15); BLOOD UREA NITROGEN 13 mg/dL (7-18); CALCIUM 9.3 MG/DL (8.5-10.1); CARBON DIOXIDE 35 MMOL/L (21-32); CHLORIDE 106 MMOL/L (98-107); CREATININE 0.4 MG/DL (0.55-1.30); POTASSIUM 3.8 MMOL/L (3.5-5.1); SODIUM 143 MMOL/L (136-145)
[2018-10-21] MEDS: NovoLOG Insulin Flexpen SUBQ SCH ×4 (06:30→21:46)
[2018-10-21 08:00] VITALS: BP 130/76
--- NOTE | 2018-10-21 08:00 | Pulmonology Progress Note ---
Assessment/Plan Assessment/Plan ASSESSMENT Acute hypoxemic and hypercapnic respiratory failure, requiring intubation, s/p self extubation 10/19 Acute toxic encephalopathy, likely secondary to severe hypercapnia -resolving Hypotension/Shock -resolved COPD exacerbation Emphysema/COPD Moderate pulmonary hypertension E/lyte imbalance ( Hyper Na -resolved, hypo P) Severe protein calorie malnutrition Psychosis [facility] OF [facility] O2 titrate to keep sat above 90% pulmonary toilet ABG on 10/20 on 1 L NC with minimal hypercapnia, likely chronic fup with CXR in am DVT prophylaxis BP stabilized, closely monitor hemodynamic status ,off pressors IV steroids and taper influenza screen test negative blood and sputum cx negative abx as per ID recs , BC prel neg, sputum cx negative, influenza screen negative BS management with SSI swallow eval ( can't be done till Monday) for now start pureed diet with strict asp precautions and 1 to 1 feeding gentle IV hydration Monitor renal parameters ,electrolytes, corrected electrolytes prn ; replace P today x 3 doses Phospho-soda acute encephalopathy likely secondary to severe hypercapnia -resolving CT of the head -no acute intracranial pathology Bowel regimen [employer] recommendation regarding nutritional supplements supportive care transfer to tele floor case discussed and evaluated by supervising physician Subjective Allergies: Coded Allergies: No Known Allergies (Verified , 11/08/11) Subjective transferred to [facility] hemodynamically stable on O2 1 L via NC with stable pulse ox 100% Na down to normal P low Objective Last 24 Hour Vital Signs Date Time Temp Pulse Resp B/P (MAP) Pulse Ox O2 Delivery O2 Flow Rate FiO2 10/21/18 06:50 100 Nasal Cannula 1.0 24 10/21/18 06:50 Nasal Cannula 1.0 24 10/21/18 04:00 97.7 70 20 142/82 (102) 98 10/21/18 04:00 54 10/21/18 04:00 Nasal Cannula 2.0 10/21/18 00:00 97.8 59 20 125/65 (85) 100 10/21/18 00:00 Nasal Cannula 2.0 10/20/18 20:45 100 Nasal Cannula 1.0 24 10/20/18 20:45 Nasal Cannula 1.0 24 10/20/18 20:00 97.7 58 20 125/65 (85) 100 10/20/18 20:00 Nasal Cannula 2.0 10/20/18 20:00 57 10/20/18 16:00 54 10/20/18 16:00 97.9 65 14 124/73 (90) 98 10/20/18 16:00 Nasal Cannula 2.0 10/20/18 15:00 61 22 101/53 (69) 99 10/20/18 14:00 59 20 106/49 (68) 100 10/20/18 13:00 61 24 98/49 (65) 99 10/20/18 12:01 78 10/20/18 12:00 Nasal Cannula 2.0 10/20/18 12:00 98.3 63 17 130/58 (82) 100 10/20/18 11:32 10/20/18 11:00 59 20 115/58 (77) 100 10/20/18 10:00 60 22 115/57 (76) 98 10/20/18 09:00 68 14 130/62 (84) 99 10/20/18 08:03 66 10/20/18 08:00 Nasal Cannula 2.0 10/20/18 08:00 98.0 74 19 119/56 (77) 100 Intake and Output 10/20/18 10/21/18 19:00 07:00 Intake Total 960 ml 1310 ml Output Total 590 ml 500 ml Balance 370 ml 810 ml Intake Oral 500 ml Free Water 50 ml IV Total 690 ml 810 ml Tube Feeding 220 ml Output Urine Total 590 ml 500 ml Objective Status: awake, cachectic male HEENT: atraumatic Lungs: decreased BS, " pigeon "chest Heart: HR/BP stable, SR on tele, distant heart sounds Abdomen: soft, non-tender, active bowel sounds Extremities: no C/C/E Laboratory Tests 10/21/18 03:15: White Blood Count 8.8, Red Blood Count 4.02L, Hemoglobin 11.5L, Hematocrit 34.6L , Mean Corpuscular Volume 86, Mean Corpuscular Hemoglobin 28.7, Mean Corpuscular Hemoglobin Concent 33.3, Red Cell Distribution Width 13.9, Platelet Count 149L, Mean Platelet Volume 6.8, Neutrophils (%) (Auto) 79.4H, Lymphocytes (%) (Auto) 10.9L, Monocytes (%) (Auto) 9.2, Eosinophils (%) (Auto) 0.1, Basophils (%) (Auto) 0.5, Sodium Level 143, Potassium Level 3.8, Chloride Level 106, Carbon Dioxide Level 35H, Anion Gap 2L, Blood Urea Nitrogen 13, Creatinine 0.4L, Estimat Glomerular Filtration Rate , Glucose Level 72L, Calcium Level 9.3 Current Medications Medications (Trade) Dose Ordered Sig/Nkechi Route PRN Reason Start Time Stop Time Status Last Admin Dose Admin Albuterol/ Ipratropium (Albuterol/ Ipratropium) 3 ml Q4H PRN HHN dyspnea 10/20/18 15:20 10/25/18 15:19 Chlorhexidine Gluconate (Tita-Hex 2%) 1 applic DAILY@2000 TOPIC 10/20/18 20:00 11/17/18 19:59 10/20/18 23:29 Dextrose (Dextrose 50%) 25 ml Q30M PRN IV Hypoglycemia 10/20/18 15:20 11/16/18 15:19 Dextrose (Dextrose 50%) 50 ml Q30M PRN IV hypoglycemia 10/20/18 15:20 11/16/18 15:19 Dextrose/Sodium Chloride 1,000 ml @ 60 mls/hr [id number] IV 10/20/18 15:26 11/17/18 15:25 10/20/18 15:39 Heparin Sodium (Porcine) (Heparin 5000 units/ml) 5,000 units EVERY 12 HOURS SUBQ 10/20/18 21:00 11/16/18 08:59 10/20/18 23:31 Insulin Aspart (NovoLOG) BEFORE MEALS AND HS SUBQ 10/20/18 16:30 11/16/18 11:29 10/20/18 18:30 Levofloxacin 150 ml @ 100 mls/hr Q24H IVPB 10/20/18 22:00 10/24/18 21:59 10/20/18 22:00 Lorazepam (Ativan 2mg/ml 1ml) 2 mg Q4H PRN IV For Anxiety 10/20/18 15:21 10/24/18 15:20 Methylprednisolone Sodium Succinate (Solu-MEDROL) 60 mg DAILY IV 10/21/18 09:00 11/16/18 11:59 Morphine Sulfate (Morphine Sulfate) 2 mg Q4H PRN IVP MODERATE PAIN 10/20/18 15:22 10/24/18 15:21 Morphine Sulfate (Morphine Sulfate) 4 mg Q4H PRN IVP SEVERE PAIN 10/20/18 15:22 10/24/18 15:21 Nitroglycerin (Ntg) 0.4 mg Q5M X 3 DOSES PRN SL Prn Chest Pain 10/20/18 15:21 11/16/18 15:20 Ondansetron HCl (Zofran) 4 mg Q6H PRN IVP Nausea & Vomiting 10/20/18 15:21 11/16/18 15:20 Pantoprazole (Protonix) 40 mg EVERY 12 HOURS IVP 10/20/18 21:00 11/19/18 20:59 10/20/18 23:29 Love Mcpherson NP Oct 21, 2018 08:00
--- NOTE | 2018-10-21 08:30 | General Progress Note ---
Assessment/Plan Problem List: (1) Sepsis ICD Codes: A41.9 - Sepsis, unspecified organism SNOMED: 15838211 (2) COPD (chronic obstructive pulmonary disease) ICD Codes: J44.9 - Chronic obstructive pulmonary disease, unspecified SNOMED: 18239163 (3) Psychoses ICD Codes: F29 - Unspecified psychosis not due to a substance or known physiological condition SNOMED: 48826744 (4) Protein-calorie malnutrition, severe ICD Codes: E43 - Unspecified severe protein-calorie malnutrition SNOMED: 432992758 (5) Acute respiratory failure ICD Codes: J96.00 - Acute respiratory failure, unspecified whether with hypoxia or hypercapnia SNOMED: 12238056 Status: stable, progressing Assessment/Plan o2 pulm tx abx cbc bmp am ltach eval Subjective Constitutional: Reports: weakness Allergies: Coded Allergies: No Known Allergies (Verified , 11/08/11) All Systems: reviewed and negative except above Subjective o2nc sleepy Objective Last 24 Hour Vital Signs Date Time Temp Pulse Resp B/P (MAP) Pulse Ox O2 Delivery O2 Flow Rate FiO2 10/21/18 06:50 100 Nasal Cannula 1.0 24 10/21/18 06:50 Nasal Cannula 1.0 24 10/21/18 04:00 97.7 70 20 142/82 (102) 98 10/21/18 04:00 54 10/21/18 04:00 Nasal Cannula 2.0 10/21/18 00:00 97.8 59 20 125/65 (85) 100 10/21/18 00:00 Nasal Cannula 2.0 10/20/18 20:45 100 Nasal Cannula 1.0 24 10/20/18 20:45 Nasal Cannula 1.0 24 10/20/18 20:00 97.7 58 20 125/65 (85) 100 10/20/18 20:00 Nasal Cannula 2.0 10/20/18 20:00 57 10/20/18 16:00 54 10/20/18 16:00 97.9 65 14 124/73 (90) 98 10/20/18 16:00 Nasal Cannula 2.0 10/20/18 15:00 61 22 101/53 (69) 99 10/20/18 14:00 59 20 106/49 (68) 100 10/20/18 13:00 61 24 98/49 (65) 99 10/20/18 12:01 78 10/20/18 12:00 Nasal Cannula 2.0 10/20/18 12:00 98.3 63 17 130/58 (82) 100 10/20/18 11:32 10/20/18 11:00 59 20 115/58 (77) 100 10/20/18 10:00 60 22 115/57 (76) 98 10/20/18 09:00 68 14 130/62 (84) 99 Intake and Output 10/20/18 10/21/18 19:00 07:00 Intake Total 960 ml 1310 ml Output Total 590 ml 500 ml Balance 370 ml 810 ml Intake Oral 500 ml Free Water 50 ml IV Total 690 ml 810 ml Tube Feeding 220 ml Output Urine Total 590 ml 500 ml Laboratory Tests 10/21/18 03:15: White Blood Count 8.8, Red Blood Count 4.02L, Hemoglobin 11.5L, Hematocrit 34.6L , Mean Corpuscular Volume 86, Mean Corpuscular Hemoglobin 28.7, Mean Corpuscular Hemoglobin Concent 33.3, Red Cell Distribution Width 13.9, Platelet Count 149L, Mean Platelet Volume 6.8, Neutrophils (%) (Auto) 79.4H, Lymphocytes (%) (Auto) 10.9L, Monocytes (%) (Auto) 9.2, Eosinophils (%) (Auto) 0.1, Basophils (%) (Auto) 0.5, Sodium Level 143, Potassium Level 3.8, Chloride Level 106, Carbon Dioxide Level 35H, Anion Gap 2L, Blood Urea Nitrogen 13, Creatinine 0.4L, Estimat Glomerular Filtration Rate , Glucose Level 72L, Calcium Level 9.3 , Phosphorus Level [Pending] Height (Feet): 5 Height (Inches): 11.00 Weight (Pounds): 133 General Appearance: confused EENT: normal ENT inspection Neck: normal alignment Cardiovascular: normal peripheral pulses, normal rate, regular rhythm Respiratory/Chest: chest wall non-tender, decreased breath sounds Abdomen: normal bowel sounds, non tender, soft Extremities: normal inspection Edema: no edema noted Arm (L), no edema noted Arm (R), no edema noted Leg (L), no edema noted Leg (R), no edema noted Pedal (L), no edema noted Pedal (R), no edema noted Generalized Neurologic: motor weakness Skin: normal pigmentation, warm/dry Bob Church DO Oct 21, 2018 08:30
[2018-10-21] MEDS ORDERED: Solu-MEDROL 125mg Inj IV SCH ×2 (09:00)
[2018-10-21] MEDS: Pantoprazole Inj IVP SCH ×2 (09:01→20:21)
[2018-10-21] MEDS: D5 1/2NS 1,000 ML IV SCH ×2 (09:02→13:16)
[2018-10-21] MEDS: Heparin 5000 units/ml inj SUBQ SCH ×2 (09:05→20:28)
[2018-10-21] MEDS ORDERED: D5 1/2NS 1000ml IV ONE (09:51)
--- NOTE | 2018-10-21 10:10 | Diagnostic Imaging Report ---
EXAM: XR Chest, 1 View CLINICAL HISTORY: SOB TECHNIQUE: Frontal view of the chest. COMPARISON: Chest x-ray 10/20/18 8 15 FINDINGS: Lungs: Hyperinflated lungs of COPD. Lungs clear. Pleural space: Unremarkable. No pneumothorax. Heart: Unremarkable. No cardiomegaly. Mediastinum: Unremarkable. Bones/joints: Old right upper rib fractures. Small right femoral heads bone infarcts. Tubes, lines and devices: Stable right IJ catheter. IMPRESSION: Hyperinflated lungs of COPD. No acute process.
[2018-10-21 12:00] VITALS: BP 133/63
[2018-10-21] MEDS ORDERED: Albuterol/Ipratropium 3ml neb HHN PRN (12:17)
[2018-10-21] MEDS ORDERED: Nitroglycerin Subl 0.4mg tab SL PRN (12:18)
[2018-10-21] MEDS ORDERED: Morphine Sulfate 4mg/ml Inj (IV/IM USE ONLY) IVP PRN (12:20)
[2018-10-21] MEDS ORDERED: Morphine Sulfate 2mg/ml Inj IVP PRN (12:20)
[2018-10-21] MEDS ORDERED: Phospha 250 Neutral tab ORAL SCH (13:00)
[2018-10-21] MEDS: Phospha 250 Neutral tab ORAL SCH ×2 (13:15→17:16)
[2018-10-21 16:00] VITALS: BP 85/52
--- NOTE | 2018-10-21 18:49 | Cardiology Progress Note ---
Assessment/Plan Assessment/Plan 1. Hypercapnic hypoxic respiratory failure, resolved, most likely secondary to acute exacerbation of COPD, 2D echocardiography reveals normal LV systolic function with LVEF at 65% with normal intra-cardiac filling pressure. 2. Hypotension, continue hydration. 3. Moderate pulmonary HTN likely due to COPD. Subjective Subjective Sinus bradycardia at 57. On NC oxygen 2 lit/min. Objective Last 24 Hour Vital Signs Date Time Temp Pulse Resp B/P (MAP) Pulse Ox O2 Delivery O2 Flow Rate FiO2 10/21/18 16:00 97.5 57 21 85/52 (63) 96 10/21/18 16:00 55 10/21/18 12:00 50 10/21/18 12:00 96.0 68 22 133/63 (86) 99 10/21/18 08:00 97.0 60 18 130/76 (94) 99 10/21/18 08:00 60 10/21/18 08:00 Nasal Cannula 2.0 10/21/18 06:50 100 Nasal Cannula 1.0 24 10/21/18 06:50 Nasal Cannula 1.0 24 10/21/18 04:00 97.7 70 20 142/82 (102) 98 10/21/18 04:00 54 10/21/18 04:00 Nasal Cannula 2.0 10/21/18 00:00 97.8 59 20 125/65 (85) 100 10/21/18 00:00 Nasal Cannula 2.0 10/20/18 20:45 100 Nasal Cannula 1.0 24 10/20/18 20:45 Nasal Cannula 1.0 24 10/20/18 20:00 97.7 58 20 125/65 (85) 100 10/20/18 20:00 Nasal Cannula 2.0 10/20/18 20:00 57 Intake and Output 10/20/18 10/21/18 19:00 07:00 Intake Total 960 ml 1370 ml Output Total 590 ml 500 ml Balance 370 ml 870 ml Intake Oral 500 ml Free Water 50 ml IV Total 690 ml 870 ml Tube Feeding 220 ml Output Urine Total 590 ml 500 ml 2D Echo: LVEF 65%, Mild LVH, Grade I LVDD, RVSP 51 mmHg c/w moderate pul HTN Laboratory Tests Test 10/21/18 03:15 White Blood Count 8.8 K/UL (4.8-10.8) Red Blood Count 4.02 M/UL (4.70-6.10) L Hemoglobin 11.5 G/DL (14.2-18.0) L Hematocrit 34.6 % (42.0-52.0) L Mean Corpuscular Volume 86 FL (80-99) Mean Corpuscular Hemoglobin 28.7 PG (27.0-31.0) Mean Corpuscular Hemoglobin Concent 33.3 G/DL (32.0-36.0) Red Cell Distribution Width 13.9 % (11.6-14.8) Platelet Count 149 K/UL (150-450) L Mean Platelet Volume 6.8 FL (6.5-10.1) Neutrophils (%) (Auto) 79.4 % (45.0-75.0) H Lymphocytes (%) (Auto) 10.9 % (20.0-45.0) L Monocytes (%) (Auto) 9.2 % (1.0-10.0) Eosinophils (%) (Auto) 0.1 % (0.0-3.0) Basophils (%) (Auto) 0.5 % (0.0-2.0) Sodium Level 143 MMOL/L (136-145) Potassium Level 3.8 MMOL/L (3.5-5.1) Chloride Level 106 MMOL/L (98-107) Carbon Dioxide Level 35 MMOL/L (21-32) H Anion Gap 2 mmol/L (5-15) L Blood Urea Nitrogen 13 mg/dL (7-18) Creatinine 0.4 MG/DL (0.55-1.30) L Estimat Glomerular Filtration Rate mL/min (>60) Glucose Level 72 MG/DL (74-106) L Calcium Level 9.3 MG/DL (8.5-10.1) Phosphorus Level 1.9 MG/DL (2.5-4.9) L Objective HEENT: Atraumatic and normocephalic. Anicteric. Bitemporal wasting. NECK: JVP is <5cm, No carotid bruit. CVS: Normal S1 and S2. Regular rate and rhythm. No murmurs, gallops, or rubs. Distant heart sounds. PMI is at fourth intercostal space in midclavicular line. LUNGS: Diminished breath sounds throughout both lungs. ABDOMEN: Soft, nontender, and nondistended. No hepatosplenomegaly. Positive bowel sounds. EXTREMITIES: No evidence of edema, clubbing, or cyanosis. Toby Sy MD Oct 21, 2018 18:49
[2018-10-21 20:00] VITALS: BP 102/72
[2018-10-21] MEDS ORDERED: Dyna-Hex 2% Top Sol 2oz TOPIC SCH (20:00)
[2018-10-21] MEDS: LORazepam Inj 2mg/ml 1ml IV PRN (20:21)
[2018-10-22] VITALS (7 sets, daily range): BP systolic 91–124; BP diastolic 47–69
[2018-10-22] MEDS: LORazepam Inj 2mg/ml 1ml IV PRN (02:38)
[2018-10-22] MEDS: D5 1/2NS 1,000 ML IV SCH (04:20)
[2018-10-22] MEDS: NovoLOG Insulin Flexpen SUBQ SCH ×4 (06:18→21:33)
--- NOTE | 2018-10-22 07:00 | Consultation ---
DATE OF CONSULTATION: NOTE: POOR AUDIO CONSULTING PHYSICIAN: Luda Barksdale M.D. HISTORY OF PRESENT ILLNESS: The patient is status post COPD exacerbation, cognition has declined below baseline, worsened by stress. . MEDICAL PROBLEMS: The patient had COPD exacerbation. ALLERGIES: He has no known drug allergies. PSYCHOTROPIC MEDICATIONS: On admission and Ativan 2 mg p.r.n. anxiety and agitation. SUBSTANCE ABUSE HISTORY: The patient denies history of tobacco, alcohol, or drugs. FAMILY PSYCHIATRIC HISTORY: Denies. PAIN ASSESSMENT: 010. DEVELOPMENTAL PROBLEMS: Denies. SOCIAL HISTORY: Currently, he lives at [facility]. Financially supported by Medicare. PSYCHIATRIC HISTORY: History of major depression with psychotic features, rule out paranoid schizophrenia. MENTAL STATUS EXAMINATION: He is a 73-year-old male. Appearance is disheveled. Attitude, irritable and agitated. Affect, guarded and restricted. Intellect poor. Mood, depressed and anxious. Motor activity, psychomotor agitation. Attention span is poor. Orientation x2. Speech is pressured. Thought process, disorganized and illogical. Thought content, auditory hallucinations and paranoid delusions. Insight and judgment is poor. DIAGNOSIS: acute exacerbation. PLAN: Ativan 2 mg IV q.4 h. Provided 20 minutes of cognitive behavioral therapy to help the patient identify his automatic negative thoughts and helped him to convert those negative thoughts to more positive thoughts to reduce depression, anxiety, and suicidality. Chart reviewed. Discussed with staff. Luda Barksdale M.D. DR: DAMON JOB#: [id number] CC:
[2018-10-22 07:16] LABS: BLOOD UREA NITROGEN 11 mg/dL (7-18); CALCIUM 8.8 MG/DL (8.5-10.1); CARBON DIOXIDE 37 MMOL/L (21-32); CHLORIDE 106 MMOL/L (98-107); CREATININE 0.4 MG/DL (0.55-1.30); POTASSIUM 3.9 MMOL/L (3.5-5.1); SODIUM 142 MMOL/L (136-145)
[2018-10-22 07:20] LABS: ANION GAP 0 mmol/L (5-15)
[2018-10-22 07:36] LABS: BASOPHILS % (AUTO) 0.3 % (0.0-2.0); EOSINOPHILS % (AUTO) 0.3 % (0.0-3.0); HEMATOCRIT 34.4 % (42.0-52.0); LYMPHOCYTES % (AUTO) 8.3 % (20.0-45.0); MEAN CORPUSCULAR VOLUME 87 FL (80-99); MONOCYTES % (AUTO) 8.8 % (1.0-10.0); NEUTROPHILS % (AUTO) 82.3 % (45.0-75.0); PLATELET COUNT 156 K/UL (150-450); RED BLOOD COUNT 3.97 M/UL (4.70-6.10); RED CELL DISTRIBUTION WIDTH 13.9 % (11.6-14.8); WHITE BLOOD COUNT 8.8 K/UL (4.8-10.8)
[2018-10-22] MEDS: Pantoprazole Inj IVP SCH (08:25)
[2018-10-22] MEDS: Phospha 250 Neutral tab ORAL SCH (08:25)
[2018-10-22] MEDS: OLANZapine 2.5mg tab ORAL SCH ×2 (08:25→17:21)
[2018-10-22] MEDS: Heparin 5000 units/ml inj SUBQ SCH ×2 (08:33→21:18)
[2018-10-22] MEDS ORDERED: Solu-MEDROL 125mg Inj IV SCH (09:00)
--- NOTE | 2018-10-22 11:31 | Diagnostic Imaging Report ---
Indication: Shortness of breath Technique: One view of the chest Comparison: 10/21/2018 Findings: Lungs are hyperinflated. Lungs and pleural spaces remain clear. Jugular central venous catheter remains. Extensive right upper chest wall deformity is unchanged. Impression: Unchanged, over one day, findings as above.
--- NOTE | 2018-10-22 12:19 | Pulmonology Progress Note ---
Assessment/Plan Problems: (1) Acute respiratory failure (2) COPD (chronic obstructive pulmonary disease) (3) Protein-calorie malnutrition, severe (4) Psychoses Assessment/Plan improving dc steroids start theophyline pt has bradycardia, but not symptomatic med/surg dc planning soon Subjective ROS Limited/Unobtainable: No Constitutional: Reports: no symptoms HEENT: Repors: no symptoms Respiratory: Reports: no symptoms Allergies: Coded Allergies: No Known Allergies (Verified , 11/08/11) Objective Last 24 Hour Vital Signs Date Time Temp Pulse Resp B/P (MAP) Pulse Ox O2 Delivery O2 Flow Rate FiO2 10/22/18 09:00 Nasal Cannula 2.0 10/22/18 08:00 97.0 54 20 123/69 (87) 96 10/22/18 07:56 99 Nasal Cannula 3.0 32 10/22/18 07:56 Nasal Cannula 3.0 32 10/22/18 04:00 50 10/22/18 04:00 96.7 53 20 119/64 (82) 96 10/22/18 00:00 49 10/22/18 00:00 96.3 49 22 124/66 (85) 96 10/21/18 21:00 Nasal Cannula 2.0 10/21/18 20:00 65 10/21/18 20:00 97.9 65 12 102/72 (82) 98 10/21/18 19:13 Nasal Cannula 1.0 24 10/21/18 19:13 100 Nasal Cannula 1.0 24 10/21/18 16:00 97.5 57 21 85/52 (63) 96 10/21/18 16:00 55 Intake and Output 10/21/18 10/22/18 19:00 07:00 Intake Total 360 ml Output Total 660 ml 1000 ml Balance -300 ml -1000 ml IV Total 360 ml Output Urine Total 660 ml 1000 ml General Appearance: WD/WN HEENT: normocephalic, anicteric Respiratory/Chest: chest wall non-tender, lungs clear Cardiovascular: normal peripheral pulses, normal rate Abdomen: normal bowel sounds, soft, non tender Genitourinary: normal external genitalia Extremities: no cyanosis Laboratory Tests 10/22/18 06:00: White Blood Count 8.8, Red Blood Count 3.97L, Hemoglobin 12.0L, Hematocrit 34.4L , Mean Corpuscular Volume 87, Mean Corpuscular Hemoglobin 30.2, Mean Corpuscular Hemoglobin Concent 34.8, Red Cell Distribution Width 13.9, Platelet Count 156, Mean Platelet Volume 6.4L, Neutrophils (%) (Auto) 82.3H, Lymphocytes (%) (Auto) 8.3L, Monocytes (%) (Auto) 8.8, Eosinophils (%) (Auto) 0.3, Basophils (%) (Auto) 0.3, Sodium Level 142, Potassium Level 3.9, Chloride Level 106, Carbon Dioxide Level 37H, Anion Gap 0L, Blood Urea Nitrogen 11, Creatinine 0.4L, Estimat Glomerular Filtration Rate , Glucose Level 103, Calcium Level 8.8 Current Medications Medications (Trade) Dose Ordered Sig/Nkechi Route PRN Reason Start Time Stop Time Status Last Admin Dose Admin Albuterol/ Ipratropium (Albuterol/ Ipratropium) 3 ml Q4H PRN HHN dyspnea 10/21/18 12:17 10/25/18 12:16 Chlorhexidine Gluconate (Tita-Hex 2%) 1 applic DAILY@2000 TOPIC 10/21/18 20:00 11/17/18 19:59 10/21/18 20:02 Dextrose (Dextrose 50%) 25 ml Q30M PRN IV Hypoglycemia 10/21/18 12:17 11/16/18 12:16 Dextrose (Dextrose 50%) 50 ml Q30M PRN IV hypoglycemia 10/21/18 12:17 11/16/18 12:16 Dextrose/Sodium Chloride 1,000 ml @ 60 mls/hr [id number] IV 10/21/18 12:17 11/17/18 12:16 10/22/18 04:20 Heparin Sodium (Porcine) (Heparin 5000 units/ml) 5,000 units EVERY 12 HOURS SUBQ 10/21/18 21:00 11/16/18 08:59 10/22/18 08:33 Insulin Aspart (NovoLOG) BEFORE MEALS AND HS SUBQ 10/21/18 12:30 11/16/18 12:29 10/21/18 21:46 Levofloxacin 150 ml @ 100 mls/hr Q24H IVPB 10/21/18 22:00 10/24/18 21:59 10/21/18 21:48 Lorazepam (Ativan 2mg/ml 1ml) 2 mg Q4H PRN IV For Anxiety 10/21/18 12:18 10/24/18 12:17 10/22/18 02:38 Morphine Sulfate (Morphine Sulfate) 2 mg Q4H PRN IVP MODERATE PAIN 10/21/18 12:20 10/24/18 12:19 Morphine Sulfate (Morphine Sulfate) 4 mg Q4H PRN IVP SEVERE PAIN 10/21/18 12:20 10/24/18 12:19 Nitroglycerin (Ntg) 0.4 mg Q5M X 3 DOSES PRN SL Prn Chest Pain 10/21/18 12:18 11/16/18 12:17 Olanzapine (ZyPREXA) 2.5 mg BID ORAL 10/22/18 09:00 11/21/18 08:59 10/22/18 08:25 Ondansetron HCl (Zofran) 4 mg Q6H PRN IVP Nausea & Vomiting 10/21/18 12:18 11/16/18 12:17 Pantoprazole (Protonix) 40 mg EVERY 12 HOURS IVP 10/21/18 21:00 11/19/18 20:59 10/22/18 08:25 Melquiades Junior MD Oct 22, 2018 12:19
[2018-10-22] MEDS ORDERED: Theophylline ER 100mg ORAL SCH (12:30)
--- NOTE | 2018-10-22 12:46 | Infectious Diseases Prog Note ---
Assessment/Plan Assessment/Plan Assessment: Acute hypoxic respiratory s/p intubation 10/17; extubated 10/19 COPD exacerbation- no evidence of PNA. \ -influenza sc neg -sp cx Normal lesli -CXR: Hyperinflation, as in COPD, unchanged over one day. No acute process. Afebrile No leukocytosis -Bcx neg schizophrenia emphysema/COPD blindness PVD HLD PNA GERD SNF resident VRE colonized Plan: -D/c Levaquin #6/5 for COPD exacerbation and monitor off abx -10/18 SP Tamiflu #2 -10/17 SP Zosyn #1, Unasyn x1 -f/u cx -Monitor CBC/CMP, temperatures -Aspiration precautions Thank you for this consultation. Will continue to follow along with you. Discussed with RN. Subjective Allergies: Coded Allergies: No Known Allergies (Verified , 11/08/11) Subjective Transferred out of ICU to Telemetry afebrile at 2l NC Objective Vital Signs Last 24 Hour Vital Signs Date Time Temp Pulse Resp B/P (MAP) Pulse Ox O2 Delivery O2 Flow Rate FiO2 10/22/18 09:00 Nasal Cannula 2.0 10/22/18 08:00 97.0 54 20 123/69 (87) 96 10/22/18 07:56 99 Nasal Cannula 3.0 32 10/22/18 07:56 Nasal Cannula 3.0 32 10/22/18 04:00 50 10/22/18 04:00 96.7 53 20 119/64 (82) 96 10/22/18 00:00 49 10/22/18 00:00 96.3 49 22 124/66 (85) 96 10/21/18 21:00 Nasal Cannula 2.0 10/21/18 20:00 65 10/21/18 20:00 97.9 65 12 102/72 (82) 98 10/21/18 19:13 Nasal Cannula 1.0 24 10/21/18 19:13 100 Nasal Cannula 1.0 24 10/21/18 16:00 97.5 57 21 85/52 (63) 96 10/21/18 16:00 55 Height (Feet): 5 Height (Inches): 11.00 Weight (Pounds): 136 Objective General Appearance: severe distress, cachetic, Chronically Ill Neck: limited range of motion Respiratory: decreased breath sounds, wheezing Cardiovascular #1: normal peripheral pulses, regular rate, rhythm, no edema Gastrointestinal: normal inspection Neurologic: normal inspection, alert, oriented x3 Skin: normal inspection Laboratory Tests Test 10/22/18 06:00 White Blood Count 8.8 K/UL (4.8-10.8) Red Blood Count 3.97 M/UL (4.70-6.10) L Hemoglobin 12.0 G/DL (14.2-18.0) L Hematocrit 34.4 % (42.0-52.0) L Mean Corpuscular Volume 87 FL (80-99) Mean Corpuscular Hemoglobin 30.2 PG (27.0-31.0) Mean Corpuscular Hemoglobin Concent 34.8 G/DL (32.0-36.0) Red Cell Distribution Width 13.9 % (11.6-14.8) Platelet Count 156 K/UL (150-450) Mean Platelet Volume 6.4 FL (6.5-10.1) L Neutrophils (%) (Auto) 82.3 % (45.0-75.0) H Lymphocytes (%) (Auto) 8.3 % (20.0-45.0) L Monocytes (%) (Auto) 8.8 % (1.0-10.0) Eosinophils (%) (Auto) 0.3 % (0.0-3.0) Basophils (%) (Auto) 0.3 % (0.0-2.0) Sodium Level 142 MMOL/L (136-145) Potassium Level 3.9 MMOL/L (3.5-5.1) Chloride Level 106 MMOL/L (98-107) Carbon Dioxide Level 37 MMOL/L (21-32) H Anion Gap 0 mmol/L (5-15) L Blood Urea Nitrogen 11 mg/dL (7-18) Creatinine 0.4 MG/DL (0.55-1.30) L Estimat Glomerular Filtration Rate mL/min (>60) Glucose Level 103 MG/DL (74-106) Calcium Level 8.8 MG/DL (8.5-10.1) Current Medications Medications (Trade) Dose Ordered Sig/Nkechi Route PRN Reason Start Time Stop Time Status Last Admin Dose Admin Albuterol/ Ipratropium (Albuterol/ Ipratropium) 3 ml Q4H PRN HHN dyspnea 10/21/18 12:17 10/25/18 12:16 Chlorhexidine Gluconate (Tita-Hex 2%) 1 applic DAILY@2000 TOPIC 10/21/18 20:00 11/17/18 19:59 10/21/18 20:02 Dextrose (Dextrose 50%) 25 ml Q30M PRN IV Hypoglycemia 10/21/18 12:17 11/16/18 12:16 Dextrose (Dextrose 50%) 50 ml Q30M PRN IV hypoglycemia 10/21/18 12:17 11/16/18 12:16 Heparin Sodium (Porcine) (Heparin 5000 units/ml) 5,000 units EVERY 12 HOURS SUBQ 10/21/18 21:00 11/16/18 08:59 10/22/18 08:33 Insulin Aspart (NovoLOG) BEFORE MEALS AND HS SUBQ 10/21/18 12:30 11/16/18 12:29 10/21/18 21:46 Levofloxacin 150 ml @ 100 mls/hr Q24H IVPB 10/21/18 22:00 10/24/18 21:59 10/21/18 21:48 Lorazepam (Ativan 2mg/ml 1ml) 2 mg Q4H PRN IV For Anxiety 10/21/18 12:18 10/24/18 12:17 10/22/18 02:38 Morphine Sulfate (Morphine Sulfate) 2 mg Q4H PRN IVP MODERATE PAIN 10/21/18 12:20 10/24/18 12:19 Morphine Sulfate (Morphine Sulfate) 4 mg Q4H PRN IVP SEVERE PAIN 10/21/18 12:20 10/24/18 12:19 Nitroglycerin (Ntg) 0.4 mg Q5M X 3 DOSES PRN SL Prn Chest Pain 10/21/18 12:18 11/16/18 12:17 Olanzapine (ZyPREXA) 2.5 mg BID ORAL 10/22/18 09:00 11/21/18 08:59 10/22/18 08:25 Ondansetron HCl (Zofran) 4 mg Q6H PRN IVP Nausea & Vomiting 10/21/18 12:18 11/16/18 12:17 Pantoprazole (Protonix) 40 mg EVERY 12 HOURS IVP 10/21/18 21:00 11/19/18 20:59 10/22/18 08:25 Theophylline (Alex-Dur) 100 mg EVERY 12 HOURS ORAL 10/22/18 12:30 11/21/18 12:29 Chio Issa M.D. Oct 22, 2018 12:46
--- NOTE | 2018-10-22 13:30 | General Progress Note ---
Assessment/Plan Problem List: (1) Sepsis ICD Codes: A41.9 - Sepsis, unspecified organism SNOMED: 30836785 (2) COPD (chronic obstructive pulmonary disease) ICD Codes: J44.9 - Chronic obstructive pulmonary disease, unspecified SNOMED: 73706697 (3) Psychoses ICD Codes: F29 - Unspecified psychosis not due to a substance or known physiological condition SNOMED: 95323477 (4) Protein-calorie malnutrition, severe ICD Codes: E43 - Unspecified severe protein-calorie malnutrition SNOMED: 780273985 (5) Acute respiratory failure ICD Codes: J96.00 - Acute respiratory failure, unspecified whether with hypoxia or hypercapnia SNOMED: 74314067 Status: unchanged Assessment/Plan o2 pulm tx abx cbc bmp am ltach eval Subjective Constitutional: Reports: weakness Allergies: Coded Allergies: No Known Allergies (Verified , 11/08/11) All Systems: reviewed and negative except above Subjective o2nc sleepy Objective Last 24 Hour Vital Signs Date Time Temp Pulse Resp B/P (MAP) Pulse Ox O2 Delivery O2 Flow Rate FiO2 10/22/18 09:00 Nasal Cannula 2.0 10/22/18 08:00 97.0 54 20 123/69 (87) 96 10/22/18 07:56 99 Nasal Cannula 3.0 32 10/22/18 07:56 Nasal Cannula 3.0 32 10/22/18 04:00 50 10/22/18 04:00 96.7 53 20 119/64 (82) 96 10/22/18 00:00 49 10/22/18 00:00 96.3 49 22 124/66 (85) 96 10/21/18 21:00 Nasal Cannula 2.0 10/21/18 20:00 65 10/21/18 20:00 97.9 65 12 102/72 (82) 98 10/21/18 19:13 Nasal Cannula 1.0 24 10/21/18 19:13 100 Nasal Cannula 1.0 24 10/21/18 16:00 97.5 57 21 85/52 (63) 96 10/21/18 16:00 55 Intake and Output 10/21/18 10/22/18 19:00 07:00 Intake Total 360 ml Output Total 660 ml 1000 ml Balance -300 ml -1000 ml IV Total 360 ml Output Urine Total 660 ml 1000 ml Laboratory Tests 10/22/18 06:00: White Blood Count 8.8, Red Blood Count 3.97L, Hemoglobin 12.0L, Hematocrit 34.4L , Mean Corpuscular Volume 87, Mean Corpuscular Hemoglobin 30.2, Mean Corpuscular Hemoglobin Concent 34.8, Red Cell Distribution Width 13.9, Platelet Count 156, Mean Platelet Volume 6.4L, Neutrophils (%) (Auto) 82.3H, Lymphocytes (%) (Auto) 8.3L, Monocytes (%) (Auto) 8.8, Eosinophils (%) (Auto) 0.3, Basophils (%) (Auto) 0.3, Sodium Level 142, Potassium Level 3.9, Chloride Level 106, Carbon Dioxide Level 37H, Anion Gap 0L, Blood Urea Nitrogen 11, Creatinine 0.4L, Estimat Glomerular Filtration Rate , Glucose Level 103, Calcium Level 8.8 Height (Feet): 5 Height (Inches): 11.00 Weight (Pounds): 136 General Appearance: lethargic EENT: normal ENT inspection Neck: normal alignment Cardiovascular: normal peripheral pulses, normal rate, regular rhythm Respiratory/Chest: chest wall non-tender, decreased breath sounds Abdomen: normal bowel sounds, non tender, soft Extremities: normal inspection Edema: no edema noted Arm (L), no edema noted Arm (R), no edema noted Leg (L), no edema noted Leg (R), no edema noted Pedal (L), no edema noted Pedal (R), no edema noted Generalized Neurologic: motor weakness Skin: normal pigmentation, warm/dry Bob Church DO Oct 22, 2018 13:30
[2018-10-22] MEDS ORDERED: Nitroglycerin Subl 0.4mg tab SL PRN (20:00)
[2018-10-22] MEDS ORDERED: Albuterol/Ipratropium 3ml neb HHN PRN (20:30)
[2018-10-22] MEDS ORDERED: Morphine Sulfate 2mg/ml Inj IVP PRN (20:30)
[2018-10-22] MEDS ORDERED: LORazepam Inj 2mg/ml 1ml IV PRN (20:30)
[2018-10-22] MEDS ORDERED: Morphine Sulfate 4mg/ml Inj (IV/IM USE ONLY) IVP PRN (20:30)
[2018-10-22] MEDS: Theophylline ER 100mg ORAL SCH (21:17)
[2018-10-22] MEDS: Dyna-Hex 2% Top Sol 2oz TOPIC SCH (21:21)
--- NOTE | 2018-10-22 22:27 | Cardiology Progress Note ---
Assessment/Plan Assessment/Plan 1. Hypercapnic hypoxic respiratory failure, resolved, most likely secondary to acute exacerbation of COPD, 2D echocardiography reveals normal LV systolic function with LVEF at 65% with normal intra-cardiac filling pressure. 2. Hypotension, resolved, continue hydration. 3. Moderate pulmonary HTN likely due to COPD. Subjective Subjective Sinus rhythm at rate of 64. On NC oxygen 2 lit/min. Hypotensive. Objective Last 24 Hour Vital Signs Date Time Temp Pulse Resp B/P (MAP) Pulse Ox O2 Delivery O2 Flow Rate FiO2 10/22/18 21:00 Nasal Cannula 2.0 10/22/18 20:59 Nasal Cannula 3.0 32 10/22/18 20:55 97 Nasal Cannula 3.0 32 10/22/18 20:00 98.0 64 20 97/51 (66) 93 10/22/18 16:47 97/51 (66) 99 10/22/18 16:00 96.3 55 21 91/47 (62) 10/22/18 12:00 97.9 61 20 112/69 (83) 96 10/22/18 12:00 46 10/22/18 09:00 Nasal Cannula 2.0 10/22/18 08:00 43 10/22/18 08:00 97.0 54 20 123/69 (87) 96 10/22/18 07:56 99 Nasal Cannula 3.0 32 10/22/18 07:56 Nasal Cannula 3.0 32 10/22/18 04:00 50 10/22/18 04:00 96.7 53 20 119/64 (82) 96 10/22/18 00:00 49 10/22/18 00:00 96.3 49 22 124/66 (85) 96 Intake and Output 10/21/18 10/22/18 18:59 06:59 Intake Total 420 ml Output Total 660 ml 1000 ml Balance -240 ml -1000 ml IV Total 420 ml Output Urine Total 660 ml 1000 ml 2D Echo: LVEF 65%, Mild LVH, Grade I LVDD, RVSP 51 mmHg c/w moderate pul HTN Laboratory Tests Test 10/22/18 06:00 White Blood Count 8.8 K/UL (4.8-10.8) Red Blood Count 3.97 M/UL (4.70-6.10) L Hemoglobin 12.0 G/DL (14.2-18.0) L Hematocrit 34.4 % (42.0-52.0) L Mean Corpuscular Volume 87 FL (80-99) Mean Corpuscular Hemoglobin 30.2 PG (27.0-31.0) Mean Corpuscular Hemoglobin Concent 34.8 G/DL (32.0-36.0) Red Cell Distribution Width 13.9 % (11.6-14.8) Platelet Count 156 K/UL (150-450) Mean Platelet Volume 6.4 FL (6.5-10.1) L Neutrophils (%) (Auto) 82.3 % (45.0-75.0) H Lymphocytes (%) (Auto) 8.3 % (20.0-45.0) L Monocytes (%) (Auto) 8.8 % (1.0-10.0) Eosinophils (%) (Auto) 0.3 % (0.0-3.0) Basophils (%) (Auto) 0.3 % (0.0-2.0) Sodium Level 142 MMOL/L (136-145) Potassium Level 3.9 MMOL/L (3.5-5.1) Chloride Level 106 MMOL/L (98-107) Carbon Dioxide Level 37 MMOL/L (21-32) H Anion Gap 0 mmol/L (5-15) L Blood Urea Nitrogen 11 mg/dL (7-18) Creatinine 0.4 MG/DL (0.55-1.30) L Estimat Glomerular Filtration Rate mL/min (>60) Glucose Level 103 MG/DL (74-106) Calcium Level 8.8 MG/DL (8.5-10.1) Objective HEENT: Atraumatic and normocephalic. Anicteric. Bitemporal wasting. NECK: JVP is <5cm, No carotid bruit. CVS: Normal S1 and S2. Regular rate and rhythm. No murmurs, gallops, or rubs. Distant heart sounds. PMI is at fourth intercostal space in midclavicular line. LUNGS: Diminished breath sounds throughout both lungs. ABDOMEN: Soft, nontender, and nondistended. No hepatosplenomegaly. Positive bowel sounds. EXTREMITIES: No evidence of edema, clubbing, or cyanosis. Toby Sy MD Oct 22, 2018 22:27
[2018-10-23] VITALS (7 sets, daily range): BP systolic 91–114; BP diastolic 56–75
[2018-10-23] MEDS: NovoLOG Insulin Flexpen SUBQ SCH ×4 (06:30→20:53)
[2018-10-23 06:41] LABS: BASOPHILS % (AUTO) 0.5 % (0.0-2.0); EOSINOPHILS % (AUTO) 0.3 % (0.0-3.0); HEMATOCRIT 35.8 % (42.0-52.0); HEMOGLOBIN 11.8 G/DL (14.2-18.0); LYMPHOCYTES % (AUTO) 10.3 % (20.0-45.0); MEAN CORPUSCULAR VOLUME 86 FL (80-99); MONOCYTES % (AUTO) 9.9 % (1.0-10.0); PLATELET COUNT 183 K/UL (150-450); RED BLOOD COUNT 4.15 M/UL (4.70-6.10); RED CELL DISTRIBUTION WIDTH 13.4 % (11.6-14.8)
[2018-10-23 07:09] LABS: ANION GAP 1 mmol/L (5-15); BLOOD UREA NITROGEN 14 mg/dL (7-18); CALCIUM 8.9 MG/DL (8.5-10.1); CARBON DIOXIDE 36 MMOL/L (21-32); CHLORIDE 106 MMOL/L (98-107); CREATININE 0.4 MG/DL (0.55-1.30); POTASSIUM 3.8 MMOL/L (3.5-5.1); SODIUM 143 MMOL/L (136-145)
[2018-10-23] MEDS: Theophylline ER 100mg ORAL SCH ×2 (08:30→20:52)
[2018-10-23] MEDS: OLANZapine 2.5mg tab ORAL SCH ×2 (08:30→17:40)
[2018-10-23] MEDS: Heparin 5000 units/ml inj SUBQ SCH ×2 (08:31→20:53)
--- NOTE | 2018-10-23 12:34 | General Progress Note ---
Assessment/Plan Problem List: (1) Sepsis ICD Codes: A41.9 - Sepsis, unspecified organism SNOMED: 22843762 (2) COPD (chronic obstructive pulmonary disease) ICD Codes: J44.9 - Chronic obstructive pulmonary disease, unspecified SNOMED: 17536733 (3) Psychoses ICD Codes: F29 - Unspecified psychosis not due to a substance or known physiological condition SNOMED: 47440585 (4) Protein-calorie malnutrition, severe ICD Codes: E43 - Unspecified severe protein-calorie malnutrition SNOMED: 042175850 (5) Acute respiratory failure ICD Codes: J96.00 - Acute respiratory failure, unspecified whether with hypoxia or hypercapnia SNOMED: 00528573 Status: stable, progressing Assessment/Plan o2 pulm tx abx cbc bmp am ltach eval dc plan Subjective Constitutional: Reports: weakness Allergies: Coded Allergies: No Known Allergies (Verified , 11/08/11) All Systems: reviewed and negative except above Subjective o2nc sleepy Objective Last 24 Hour Vital Signs Date Time Temp Pulse Resp B/P (MAP) Pulse Ox O2 Delivery O2 Flow Rate FiO2 10/23/18 09:00 Nasal Cannula 2.0 10/23/18 08:32 96.3 85 18 114/75 (88) 93 10/23/18 07:55 Nasal Cannula 2.0 28 10/23/18 07:55 94 Nasal Cannula 2.0 28 10/23/18 04:00 97.8 63 18 91/56 (68) 99 10/23/18 01:35 97.9 61 19 99/57 (71) 100 10/23/18 00:00 97.9 61 19 99/57 (71) 100 10/22/18 21:00 Nasal Cannula 2.0 10/22/18 20:59 Nasal Cannula 3.0 32 10/22/18 20:55 97 Nasal Cannula 3.0 32 10/22/18 20:00 98.0 64 20 97/51 (66) 93 10/22/18 16:47 97/51 (66) 99 10/22/18 16:00 96.3 55 21 91/47 (62) Intake and Output 10/22/18 10/23/18 19:00 07:00 Intake Total 730 ml 120 ml Output Total 500 ml 650 ml Balance 230 ml -530 ml Intake Oral 400 ml 120 ml IV Total 330 ml Output Urine Total 500 ml 650 ml Laboratory Tests 10/23/18 06:10: White Blood Count 10.0, Red Blood Count 4.15L, Hemoglobin 11.8L, Hematocrit 35.8L, Mean Corpuscular Volume 86, Mean Corpuscular Hemoglobin 28.5, Mean Corpuscular Hemoglobin Concent 33.0, Red Cell Distribution Width 13.4, Platelet Count 183, Mean Platelet Volume 6.4L, Neutrophils (%) (Auto) 79.0H, Lymphocytes (%) (Auto) 10.3L, Monocytes (%) (Auto) 9.9, Eosinophils (%) (Auto) 0.3, Basophils (%) (Auto) 0.5, Sodium Level 143, Potassium Level 3.8, Chloride Level 106, Carbon Dioxide Level 36H, Anion Gap 1L, Blood Urea Nitrogen 14, Creatinine 0.4L, Estimat Glomerular Filtration Rate , Glucose Level 83, Calcium Level 8.9 Height (Feet): 5 Height (Inches): 11.00 Weight (Pounds): 140 General Appearance: lethargic EENT: normal ENT inspection Neck: normal alignment Cardiovascular: normal peripheral pulses, normal rate, regular rhythm Respiratory/Chest: chest wall non-tender, lungs clear, normal breath sounds Abdomen: normal bowel sounds, non tender, soft Extremities: normal inspection Edema: no edema noted Arm (L), no edema noted Arm (R), no edema noted Leg (L), no edema noted Leg (R), no edema noted Pedal (L), no edema noted Pedal (R), no edema noted Generalized Neurologic: motor weakness Skin: normal pigmentation, warm/dry Bob Church DO Oct 23, 2018 12:34
--- NOTE | 2018-10-23 13:35 | Infectious Diseases Prog Note ---
Assessment/Plan Assessment/Plan Assessment: Acute hypoxic respiratory s/p intubation 10/17; extubated 10/19 COPD exacerbation- no evidence of PNA. -influenza sc neg -sp cx Normal lesli -CXR: Hyperinflation, as in COPD, unchanged over one day. No acute process. Afebrile No leukocytosis -Bcx neg schizophrenia emphysema/COPD blindness PVD HLD PNA GERD SNF resident VRE colonized Plan: -Continue to monitor off abx -ok to discharge to SNF -10/22 SP LEvaquin #6 -10/18 SP Tamiflu #2 -10/17 SP Zosyn #1, Unasyn x1 -f/u cx -Monitor CBC/CMP, temperatures -Aspiration precautions Thank you for this consultation. Will continue to follow along with you. Discussed with RN. Subjective Allergies: Coded Allergies: No Known Allergies (Verified , 11/08/11) Subjective afebrile at 2l NC off abx Objective Vital Signs Last 24 Hour Vital Signs Date Time Temp Pulse Resp B/P (MAP) Pulse Ox O2 Delivery O2 Flow Rate FiO2 10/23/18 09:00 Nasal Cannula 2.0 10/23/18 08:32 96.3 85 18 114/75 (88) 93 10/23/18 07:55 Nasal Cannula 2.0 28 10/23/18 07:55 94 Nasal Cannula 2.0 28 10/23/18 04:00 97.8 63 18 91/56 (68) 99 10/23/18 01:35 97.9 61 19 99/57 (71) 100 10/23/18 00:00 97.9 61 19 99/57 (71) 100 10/22/18 21:00 Nasal Cannula 2.0 10/22/18 20:59 Nasal Cannula 3.0 32 10/22/18 20:55 97 Nasal Cannula 3.0 32 10/22/18 20:00 98.0 64 20 97/51 (66) 93 10/22/18 16:47 97/51 (66) 99 10/22/18 16:00 96.3 55 21 91/47 (62) Height (Feet): 5 Height (Inches): 11.00 Weight (Pounds): 140 Objective General Appearance: severe distress, cachetic, Chronically Ill Neck: limited range of motion Respiratory: decreased breath sounds, wheezing Cardiovascular #1: normal peripheral pulses, regular rate, rhythm, no edema Gastrointestinal: normal inspection Neurologic: normal inspection, alert, oriented x3 Skin: normal inspection Laboratory Tests Test 10/23/18 06:10 White Blood Count 10.0 K/UL (4.8-10.8) Red Blood Count 4.15 M/UL (4.70-6.10) L Hemoglobin 11.8 G/DL (14.2-18.0) L Hematocrit 35.8 % (42.0-52.0) L Mean Corpuscular Volume 86 FL (80-99) Mean Corpuscular Hemoglobin 28.5 PG (27.0-31.0) Mean Corpuscular Hemoglobin Concent 33.0 G/DL (32.0-36.0) Red Cell Distribution Width 13.4 % (11.6-14.8) Platelet Count 183 K/UL (150-450) Mean Platelet Volume 6.4 FL (6.5-10.1) L Neutrophils (%) (Auto) 79.0 % (45.0-75.0) H Lymphocytes (%) (Auto) 10.3 % (20.0-45.0) L Monocytes (%) (Auto) 9.9 % (1.0-10.0) Eosinophils (%) (Auto) 0.3 % (0.0-3.0) Basophils (%) (Auto) 0.5 % (0.0-2.0) Sodium Level 143 MMOL/L (136-145) Potassium Level 3.8 MMOL/L (3.5-5.1) Chloride Level 106 MMOL/L (98-107) Carbon Dioxide Level 36 MMOL/L (21-32) H Anion Gap 1 mmol/L (5-15) L Blood Urea Nitrogen 14 mg/dL (7-18) Creatinine 0.4 MG/DL (0.55-1.30) L Estimat Glomerular Filtration Rate mL/min (>60) Glucose Level 83 MG/DL (74-106) Calcium Level 8.9 MG/DL (8.5-10.1) Current Medications Medications (Trade) Dose Ordered Sig/Nkechi Route PRN Reason Start Time Stop Time Status Last Admin Dose Admin Albuterol/ Ipratropium (Albuterol/ Ipratropium) 3 ml Q4H PRN HHN dyspnea 10/22/18 20:30 10/25/18 12:16 Chlorhexidine Gluconate (Tita-Hex 2%) 1 applic DAILY@1999 TOPIC 10/22/18 20:00 11/17/18 19:59 10/22/18 21:21 Dextrose (Dextrose 50%) 25 ml Q30M PRN IV Hypoglycemia 10/22/18 20:30 11/16/18 12:16 Dextrose (Dextrose 50%) 50 ml Q30M PRN IV hypoglycemia 10/22/18 20:30 11/16/18 12:16 Heparin Sodium (Porcine) (Heparin 5000 units/ml) 5,000 units EVERY 12 HOURS SUBQ 10/22/18 21:00 11/16/18 08:59 10/23/18 08:31 Insulin Aspart (NovoLOG) BEFORE MEALS AND HS SUBQ 10/22/18 21:00 11/16/18 12:29 10/22/18 21:33 Lansoprazole (Prevacid) 30 mg Q12HR ORAL 10/22/18 21:00 11/21/18 20:59 10/23/18 08:30 Lorazepam (Ativan 2mg/ml 1ml) 2 mg Q4H PRN IV For Anxiety 10/22/18 20:30 10/24/18 12:17 Morphine Sulfate (Morphine Sulfate) 2 mg Q4H PRN IVP Moderate Pain (Pain Scale 4-6) 10/22/18 20:30 10/24/18 12:19 Morphine Sulfate (Morphine Sulfate) 4 mg Q4H PRN IVP Severe Pain (Pain Scale 7-10) 10/22/18 20:30 10/24/18 12:19 Nitroglycerin (Ntg) 0.4 mg Q5M X 3 DOSES PRN SL Prn Chest Pain 10/22/18 20:00 11/16/18 12:17 Olanzapine (ZyPREXA) 2.5 mg BID ORAL 10/23/18 09:00 11/21/18 08:59 10/23/18 08:30 Ondansetron HCl (Zofran) 4 mg Q6H PRN IVP Nausea & Vomiting 10/22/18 20:30 11/21/18 20:29 Theophylline (Alex-Dur) 100 mg EVERY 12 HOURS ORAL 10/22/18 21:00 11/21/18 12:29 10/23/18 08:30 Chio Issa M.D. Oct 23, 2018 13:35
--- NOTE | 2018-10-23 13:51 | Pulmonology Progress Note ---
Assessment/Plan Problems: (1) Acute respiratory failure (2) COPD (chronic obstructive pulmonary disease) (3) Protein-calorie malnutrition, severe (4) Psychoses Assessment/Plan improving dc steroids start theophyline heart rate better, at 70's med/surg dc planning soon Subjective ROS Limited/Unobtainable: Yes Allergies: Coded Allergies: No Known Allergies (Verified , 11/08/11) Objective Last 24 Hour Vital Signs Date Time Temp Pulse Resp B/P (MAP) Pulse Ox O2 Delivery O2 Flow Rate FiO2 10/23/18 12:00 97.3 78 18 108/67 (81) 96 10/23/18 09:00 Nasal Cannula 2.0 10/23/18 08:32 96.3 85 18 114/75 (88) 93 10/23/18 07:55 Nasal Cannula 2.0 28 10/23/18 07:55 94 Nasal Cannula 2.0 28 10/23/18 04:00 97.8 63 18 91/56 (68) 99 10/23/18 01:35 97.9 61 19 99/57 (71) 100 10/23/18 00:00 97.9 61 19 99/57 (71) 100 10/22/18 21:00 Nasal Cannula 2.0 10/22/18 20:59 Nasal Cannula 3.0 32 10/22/18 20:55 97 Nasal Cannula 3.0 32 10/22/18 20:00 98.0 64 20 97/51 (66) 93 10/22/18 16:47 97/51 (66) 99 10/22/18 16:00 96.3 55 21 91/47 (62) Intake and Output 10/22/18 10/23/18 19:00 07:00 Intake Total 730 ml 120 ml Output Total 500 ml 650 ml Balance 230 ml -530 ml Intake Oral 400 ml 120 ml IV Total 330 ml Output Urine Total 500 ml 650 ml General Appearance: cachetic HEENT: normocephalic, atraumatic Respiratory/Chest: chest wall non-tender, lungs clear, chest wall tender Cardiovascular: normal rate Abdomen: soft, non tender, no organomegaly Genitourinary: normal external genitalia Extremities: no clubbing Skin: no lesions Laboratory Tests 10/23/18 06:10: White Blood Count 10.0, Red Blood Count 4.15L, Hemoglobin 11.8L, Hematocrit 35.8L, Mean Corpuscular Volume 86, Mean Corpuscular Hemoglobin 28.5, Mean Corpuscular Hemoglobin Concent 33.0, Red Cell Distribution Width 13.4, Platelet Count 183, Mean Platelet Volume 6.4L, Neutrophils (%) (Auto) 79.0H, Lymphocytes (%) (Auto) 10.3L, Monocytes (%) (Auto) 9.9, Eosinophils (%) (Auto) 0.3, Basophils (%) (Auto) 0.5, Sodium Level 143, Potassium Level 3.8, Chloride Level 106, Carbon Dioxide Level 36H, Anion Gap 1L, Blood Urea Nitrogen 14, Creatinine 0.4L, Estimat Glomerular Filtration Rate , Glucose Level 83, Calcium Level 8.9 Current Medications Medications (Trade) Dose Ordered Sig/Nkechi Route PRN Reason Start Time Stop Time Status Last Admin Dose Admin Albuterol/ Ipratropium (Albuterol/ Ipratropium) 3 ml Q4H PRN HHN dyspnea 10/22/18 20:30 10/25/18 12:16 Chlorhexidine Gluconate (Tita-Hex 2%) 1 applic DAILY@1999 TOPIC 10/22/18 20:00 11/17/18 19:59 10/22/18 21:21 Dextrose (Dextrose 50%) 25 ml Q30M PRN IV Hypoglycemia 10/22/18 20:30 11/16/18 12:16 Dextrose (Dextrose 50%) 50 ml Q30M PRN IV hypoglycemia 10/22/18 20:30 11/16/18 12:16 Heparin Sodium (Porcine) (Heparin 5000 units/ml) 5,000 units EVERY 12 HOURS SUBQ 10/22/18 21:00 11/16/18 08:59 10/23/18 08:31 Insulin Aspart (NovoLOG) BEFORE MEALS AND HS SUBQ 10/22/18 21:00 11/16/18 12:29 10/22/18 21:33 Lansoprazole (Prevacid) 30 mg Q12HR ORAL 10/22/18 21:00 11/21/18 20:59 10/23/18 08:30 Lorazepam (Ativan 2mg/ml 1ml) 2 mg Q4H PRN IV For Anxiety 10/22/18 20:30 10/24/18 12:17 Morphine Sulfate (Morphine Sulfate) 2 mg Q4H PRN IVP Moderate Pain (Pain Scale 4-6) 10/22/18 20:30 10/24/18 12:19 Morphine Sulfate (Morphine Sulfate) 4 mg Q4H PRN IVP Severe Pain (Pain Scale 7-10) 10/22/18 20:30 10/24/18 12:19 Nitroglycerin (Ntg) 0.4 mg Q5M X 3 DOSES PRN SL Prn Chest Pain 10/22/18 20:00 11/16/18 12:17 Olanzapine (ZyPREXA) 2.5 mg BID ORAL 10/23/18 09:00 11/21/18 08:59 10/23/18 08:30 Ondansetron HCl (Zofran) 4 mg Q6H PRN IVP Nausea & Vomiting 10/22/18 20:30 11/21/18 20:29 Theophylline (Alex-Dur) 100 mg EVERY 12 HOURS ORAL 10/22/18 21:00 11/21/18 12:29 10/23/18 08:30 Melquiades Junior MD Oct 23, 2018 13:51
[2018-10-23] MEDS ORDERED: HEPARIN 5010 UNIT/1 SQ (13:53)
[2018-10-23] MEDS ORDERED: PREVACID30 MG ORAL (14:06)
[2018-10-23] MEDS ORDERED: NOVOLOG100 UNIT/4 SQ (14:07)
[2018-10-23] MEDS ORDERED: HEPARIN SO5000 UNIT2 SUBQ (14:08)
[2018-10-23] MEDS ORDERED: THEOPHYLLI80 MG/151 PO (14:09)
[2018-10-23] MEDS: Dyna-Hex 2% Top Sol 2oz TOPIC SCH (20:52)
--- NOTE | 2018-10-23 23:21 | Cardiology Progress Note ---
Assessment/Plan Assessment/Plan 1. Hypercapnic hypoxic respiratory failure, resolved, most likely secondary to acute exacerbation of COPD, 2D echocardiography reveals normal LV systolic function with LVEF at 65% with normal intra-cardiac filling pressure. 2. Hypotension, resolved, continue hydration. 3. Moderate pulmonary HTN likely due to COPD. Subjective Subjective No cardiac events. On NC oxygen 2 lit/min. Objective Last 24 Hour Vital Signs Date Time Temp Pulse Resp B/P (MAP) Pulse Ox O2 Delivery O2 Flow Rate FiO2 10/23/18 21:00 Nasal Cannula 2.0 10/23/18 20:00 98.0 65 18 113/65 (81) 98 10/23/18 19:35 Nasal Cannula 2.0 28 10/23/18 19:35 96 Nasal Cannula 2.0 28 10/23/18 16:00 97.8 81 18 110/69 (83) 97 10/23/18 12:00 97.3 78 18 108/67 (81) 96 10/23/18 09:00 Nasal Cannula 2.0 10/23/18 08:32 96.3 85 18 114/75 (88) 93 10/23/18 07:55 Nasal Cannula 2.0 28 10/23/18 07:55 94 Nasal Cannula 2.0 28 10/23/18 04:00 97.8 63 18 91/56 (68) 99 10/23/18 01:35 97.9 61 19 99/57 (71) 100 10/23/18 00:00 97.9 61 19 99/57 (71) 100 Intake and Output 10/22/18 10/23/18 19:00 07:00 Intake Total 730 ml 120 ml Output Total 500 ml 650 ml Balance 230 ml -530 ml Intake Oral 400 ml 120 ml IV Total 330 ml Output Urine Total 500 ml 650 ml 2D Echo: LVEF 65%, Mild LVH, Grade I LVDD, RVSP 51 mmHg c/w moderate pul HTN Laboratory Tests Test 10/23/18 06:10 White Blood Count 10.0 K/UL (4.8-10.8) Red Blood Count 4.15 M/UL (4.70-6.10) L Hemoglobin 11.8 G/DL (14.2-18.0) L Hematocrit 35.8 % (42.0-52.0) L Mean Corpuscular Volume 86 FL (80-99) Mean Corpuscular Hemoglobin 28.5 PG (27.0-31.0) Mean Corpuscular Hemoglobin Concent 33.0 G/DL (32.0-36.0) Red Cell Distribution Width 13.4 % (11.6-14.8) Platelet Count 183 K/UL (150-450) Mean Platelet Volume 6.4 FL (6.5-10.1) L Neutrophils (%) (Auto) 79.0 % (45.0-75.0) H Lymphocytes (%) (Auto) 10.3 % (20.0-45.0) L Monocytes (%) (Auto) 9.9 % (1.0-10.0) Eosinophils (%) (Auto) 0.3 % (0.0-3.0) Basophils (%) (Auto) 0.5 % (0.0-2.0) Sodium Level 143 MMOL/L (136-145) Potassium Level 3.8 MMOL/L (3.5-5.1) Chloride Level 106 MMOL/L (98-107) Carbon Dioxide Level 36 MMOL/L (21-32) H Anion Gap 1 mmol/L (5-15) L Blood Urea Nitrogen 14 mg/dL (7-18) Creatinine 0.4 MG/DL (0.55-1.30) L Estimat Glomerular Filtration Rate mL/min (>60) Glucose Level 83 MG/DL (74-106) Calcium Level 8.9 MG/DL (8.5-10.1) Objective HEENT: Atraumatic and normocephalic. Anicteric. Bitemporal wasting. NECK: JVP is <5cm, No carotid bruit. CVS: Normal S1 and S2. Regular rate and rhythm. No murmurs, gallops, or rubs. Distant heart sounds. PMI is at fourth intercostal space in midclavicular line. LUNGS: Diminished breath sounds throughout both lungs. ABDOMEN: Soft, nontender, and nondistended. No hepatosplenomegaly. Positive bowel sounds. EXTREMITIES: No evidence of edema, clubbing, or cyanosis. Toby Sy MD Oct 23, 2018 23:21
--- NOTE | 2018-10-23 23:45 | Progress Note ---
DATE: 10/23/2018 HISTORY OF PRESENT ILLNESS: This is a 73-year-old male patient with COPD exacerbation. This patient has some agitation, irritability, confusion, worsened by stress of his medical illness. That is why, his attending has requested daily psychiatric consultation. MENTAL STATUS EXAMINATION: He is a 73-year-old male. His appearance is disheveled. Attitude, irritable and agitated. Affect, guarded and restricted. Intellect poor. Mood, depressed and anxious. Motor activity, psychomotor agitation. Attention span is poor. Orientation x2. Speech is pressured. Thought process, disorganized and illogical. Thought content, auditory hallucinations and paranoid delusions. Insight and judgment is poor. DIAGNOSIS: Paranoid schizophrenia with acute exacerbation. PLAN: Treat the patient with Zyprexa 2.5 mg once a day and Ativan 2 mg IV q.4 h. p.r.n. anxiety and agitation. Provided with 20 minutes of supportive psychotherapy and 20 minutes of cognitive behavioral therapy to help the patient identify his automatic negative thoughts and helped him to convert those negative thoughts to more positive thoughts to reduce depression, anxiety, and suicidality. Chart reviewed. Discussed with staff. Luda Barksdale M.D. DR: KOURTNEY JOB#: [id number] CC:
[2018-10-24] VITALS: BP 118/68
[2018-10-24 04:00] VITALS: BP 128/59
[2018-10-24] MEDS: NovoLOG Insulin Flexpen SUBQ SCH ×4 (06:11→21:00)
[2018-10-24 06:31] LABS: BASOPHILS % (AUTO) 0.5 % (0.0-2.0); EOSINOPHILS % (AUTO) 5.4 % (0.0-3.0); HEMATOCRIT 38.1 % (42.0-52.0); HEMOGLOBIN 12.2 G/DL (14.2-18.0); LYMPHOCYTES % (AUTO) 20.8 % (20.0-45.0); MEAN CORPUSCULAR VOLUME 87 FL (80-99); MONOCYTES % (AUTO) 10.5 % (1.0-10.0); NEUTROPHILS % (AUTO) 62.7 % (45.0-75.0); PLATELET COUNT 191 K/UL (150-450); RED BLOOD COUNT 4.38 M/UL (4.70-6.10); RED CELL DISTRIBUTION WIDTH 13.5 % (11.6-14.8)
[2018-10-24 06:53] LABS: ANION GAP 0 mmol/L (5-15); BLOOD UREA NITROGEN 15 mg/dL (7-18); CARBON DIOXIDE 40 MMOL/L (21-32); CHLORIDE 106 MMOL/L (98-107); CREATININE 0.5 MG/DL (0.55-1.30); POTASSIUM 3.7 MMOL/L (3.5-5.1); SODIUM 146 MMOL/L (136-145)
[2018-10-24 08:00] VITALS: BP 131/72
[2018-10-24] MEDS: OLANZapine 2.5mg tab ORAL SCH ×2 (09:28→17:29)
[2018-10-24] MEDS: Theophylline ER 100mg ORAL SCH ×2 (09:28→21:00)
[2018-10-24] MEDS: Heparin 5000 units/ml inj SUBQ SCH ×2 (09:31→21:00)
[2018-10-24 12:00] VITALS: BP 119/60
--- NOTE | 2018-10-24 12:41 | Pulmonology Progress Note ---
Assessment/Plan Problems: (1) Acute respiratory failure (2) COPD (chronic obstructive pulmonary disease) (3) Protein-calorie malnutrition, severe (4) Psychoses Assessment/Plan improving dc steroids start theophyline heart rate better, at 70's med/surg dc planning soon Subjective ROS Limited/Unobtainable: Yes Allergies: Coded Allergies: No Known Allergies (Verified , 11/08/11) Objective Last 24 Hour Vital Signs Date Time Temp Pulse Resp B/P (MAP) Pulse Ox O2 Delivery O2 Flow Rate FiO2 10/24/18 09:00 Nasal Cannula 2.0 10/24/18 08:07 Nasal Cannula 2.0 28 10/24/18 08:07 95 Nasal Cannula 2.0 28 10/24/18 08:00 98.1 68 18 131/72 (91) 97 10/24/18 04:00 97.8 60 18 128/59 (82) 97 10/24/18 00:00 98.1 60 17 118/68 (85) 98 10/23/18 21:00 Nasal Cannula 2.0 10/23/18 20:00 98.0 65 18 113/65 (81) 98 10/23/18 19:35 Nasal Cannula 2.0 28 10/23/18 19:35 96 Nasal Cannula 2.0 28 10/23/18 16:00 97.8 81 18 110/69 (83) 97 Intake and Output 10/23/18 10/24/18 19:00 07:00 Intake Total 840 ml 360 ml Output Total 800 ml 900 ml Balance 40 ml -540 ml Intake Oral 840 ml 360 ml Output Urine Total 800 ml 900 ml # Voids 1 Objective General Appearance: WD/WN HEENT: normocephalic, anicteric Respiratory/Chest: chest wall non-tender, lungs clear Cardiovascular: normal peripheral pulses, normal rate Abdomen: normal bowel sounds, no organomegaly Genitourinary: normal external genitalia Skin: no rash Laboratory Tests 10/24/18 05:20: White Blood Count 8.0, Red Blood Count 4.38L, Hemoglobin 12.2L, Hematocrit 38.1L , Mean Corpuscular Volume 87, Mean Corpuscular Hemoglobin 27.8, Mean Corpuscular Hemoglobin Concent 32.0, Red Cell Distribution Width 13.5, Platelet Count 191, Mean Platelet Volume 6.0L, Neutrophils (%) (Auto) 62.7, Lymphocytes ( %) (Auto) 20.8, Monocytes (%) (Auto) 10.5H, Eosinophils (%) (Auto) 5.4H, Basophils (%) (Auto) 0.5, Sodium Level 146H, Potassium Level 3.7, Chloride Level 106, Carbon Dioxide Level 40H, Anion Gap 0L, Blood Urea Nitrogen 15, Creatinine 0.5L, Estimat Glomerular Filtration Rate , Glucose Level 83, Calcium Level 9.0 Current Medications Medications (Trade) Dose Ordered Sig/Nkechi Route PRN Reason Start Time Stop Time Status Last Admin Dose Admin Albuterol/ Ipratropium (Albuterol/ Ipratropium) 3 ml Q4H PRN HHN dyspnea 10/22/18 20:30 10/25/18 12:16 Chlorhexidine Gluconate (Tita-Hex 2%) 1 applic DAILY@1999 TOPIC 10/22/18 20:00 11/17/18 19:59 10/23/18 20:52 Dextrose (Dextrose 50%) 25 ml Q30M PRN IV Hypoglycemia 10/22/18 20:30 11/16/18 12:16 Dextrose (Dextrose 50%) 50 ml Q30M PRN IV hypoglycemia 10/22/18 20:30 11/16/18 12:16 Heparin Sodium (Porcine) (Heparin 5000 units/ml) 5,000 units EVERY 12 HOURS SUBQ 10/22/18 21:00 11/16/18 08:59 10/24/18 09:31 Insulin Aspart (NovoLOG) BEFORE MEALS AND HS SUBQ 10/22/18 21:00 11/16/18 12:29 10/22/18 21:33 Lansoprazole (Prevacid) 30 mg Q12HR ORAL 10/22/18 21:00 11/21/18 20:59 10/24/18 09:28 Nitroglycerin (Ntg) 0.4 mg Q5M X 3 DOSES PRN SL Prn Chest Pain 10/22/18 20:00 11/16/18 12:17 Olanzapine (ZyPREXA) 2.5 mg BID ORAL 10/23/18 09:00 11/21/18 08:59 10/24/18 09:28 Ondansetron HCl (Zofran) 4 mg Q6H PRN IVP Nausea & Vomiting 10/22/18 20:30 11/21/18 20:29 Theophylline (Alex-Dur) 100 mg EVERY 12 HOURS ORAL 10/22/18 21:00 11/21/18 12:29 10/24/18 09:28 Melquiades Junior MD Oct 24, 2018 12:41
--- NOTE | 2018-10-24 13:46 | General Progress Note ---
Assessment/Plan Problem List: (1) Sepsis ICD Codes: A41.9 - Sepsis, unspecified organism SNOMED: 18929223 (2) COPD (chronic obstructive pulmonary disease) ICD Codes: J44.9 - Chronic obstructive pulmonary disease, unspecified SNOMED: 32322644 (3) Psychoses ICD Codes: F29 - Unspecified psychosis not due to a substance or known physiological condition SNOMED: 61723450 (4) Protein-calorie malnutrition, severe ICD Codes: E43 - Unspecified severe protein-calorie malnutrition SNOMED: 248480517 (5) Acute respiratory failure ICD Codes: J96.00 - Acute respiratory failure, unspecified whether with hypoxia or hypercapnia SNOMED: 32874509 Status: stable, progressing Assessment/Plan o2 pulm tx abx cbc bmp am to snf Subjective Constitutional: Reports: weakness Allergies: Coded Allergies: No Known Allergies (Verified , 11/08/11) All Systems: reviewed and negative except above Subjective o2nc sleepy Objective Last 24 Hour Vital Signs Date Time Temp Pulse Resp B/P (MAP) Pulse Ox O2 Delivery O2 Flow Rate FiO2 10/24/18 12:00 97.7 69 18 119/60 (79) 96 10/24/18 09:00 Nasal Cannula 2.0 10/24/18 08:07 Nasal Cannula 2.0 28 10/24/18 08:07 95 Nasal Cannula 2.0 28 10/24/18 08:00 98.1 68 18 131/72 (91) 97 10/24/18 04:00 97.8 60 18 128/59 (82) 97 10/24/18 00:00 98.1 60 17 118/68 (85) 98 10/23/18 21:00 Nasal Cannula 2.0 10/23/18 20:00 98.0 65 18 113/65 (81) 98 10/23/18 19:35 Nasal Cannula 2.0 28 10/23/18 19:35 96 Nasal Cannula 2.0 28 10/23/18 16:00 97.8 81 18 110/69 (83) 97 Intake and Output 10/23/18 10/24/18 19:00 07:00 Intake Total 840 ml 360 ml Output Total 800 ml 900 ml Balance 40 ml -540 ml Intake Oral 840 ml 360 ml Output Urine Total 800 ml 900 ml # Voids 1 Laboratory Tests 10/24/18 05:20: White Blood Count 8.0, Red Blood Count 4.38L, Hemoglobin 12.2L, Hematocrit 38.1L , Mean Corpuscular Volume 87, Mean Corpuscular Hemoglobin 27.8, Mean Corpuscular Hemoglobin Concent 32.0, Red Cell Distribution Width 13.5, Platelet Count 191, Mean Platelet Volume 6.0L, Neutrophils (%) (Auto) 62.7, Lymphocytes ( %) (Auto) 20.8, Monocytes (%) (Auto) 10.5H, Eosinophils (%) (Auto) 5.4H, Basophils (%) (Auto) 0.5, Sodium Level 146H, Potassium Level 3.7, Chloride Level 106, Carbon Dioxide Level 40H, Anion Gap 0L, Blood Urea Nitrogen 15, Creatinine 0.5L, Estimat Glomerular Filtration Rate , Glucose Level 83, Calcium Level 9.0 Height (Feet): 5 Height (Inches): 11.00 Weight (Pounds): 135 General Appearance: lethargic EENT: normal ENT inspection Neck: normal alignment Cardiovascular: normal peripheral pulses, normal rate, regular rhythm Respiratory/Chest: chest wall non-tender, lungs clear, normal breath sounds Extremities: normal inspection Edema: no edema noted Arm (L), no edema noted Arm (R), no edema noted Leg (L), no edema noted Leg (R), no edema noted Pedal (L), no edema noted Pedal (R), no edema noted Generalized Neurologic: motor weakness Skin: normal pigmentation, warm/dry Bob Church DO Oct 24, 2018 13:46
--- NOTE | 2018-10-24 15:12 | Infectious Diseases Prog Note ---
Assessment/Plan Assessment/Plan Assessment: Acute hypoxic respiratory s/p intubation 10/17; extubated 10/19 COPD exacerbation- no evidence of PNA. -influenza sc neg -sp cx Normal lesli -CXR: Hyperinflation, as in COPD, unchanged over one day. No acute process. Afebrile No leukocytosis -Bcx neg schizophrenia emphysema/COPD blindness PVD HLD PNA GERD SNF resident VRE colonized Plan: -Continue to monitor off abx -ok to discharge to SNF -10/22 SP LEvaquin #6 -10/18 SP Tamiflu #2 -10/17 SP Zosyn #1, Unasyn x1 -f/u cx -Monitor CBC/CMP, temperatures -Aspiration precautions Thank you for this consultation. Will continue to follow along with you. Discussed with RN. Subjective Allergies: Coded Allergies: No Known Allergies (Verified , 11/08/11) Subjective afebrile at 2l NC off abx Objective Vital Signs Last 24 Hour Vital Signs Date Time Temp Pulse Resp B/P (MAP) Pulse Ox O2 Delivery O2 Flow Rate FiO2 10/24/18 12:00 97.7 69 18 119/60 (79) 96 10/24/18 09:00 Nasal Cannula 2.0 10/24/18 08:07 Nasal Cannula 2.0 28 10/24/18 08:07 95 Nasal Cannula 2.0 28 10/24/18 08:00 98.1 68 18 131/72 (91) 97 10/24/18 04:00 97.8 60 18 128/59 (82) 97 10/24/18 00:00 98.1 60 17 118/68 (85) 98 10/23/18 21:00 Nasal Cannula 2.0 10/23/18 20:00 98.0 65 18 113/65 (81) 98 10/23/18 19:35 Nasal Cannula 2.0 28 10/23/18 19:35 96 Nasal Cannula 2.0 28 10/23/18 16:00 97.8 81 18 110/69 (83) 97 Height (Feet): 5 Height (Inches): 11.00 Weight (Pounds): 135 Objective General Appearance: severe distress, cachetic, Chronically Ill Neck: limited range of motion Respiratory: decreased breath sounds, wheezing Cardiovascular #1: normal peripheral pulses, regular rate, rhythm, no edema Gastrointestinal: normal inspection Neurologic: normal inspection, alert, oriented x3 Skin: normal inspection Laboratory Tests Test 10/24/18 05:20 White Blood Count 8.0 K/UL (4.8-10.8) Red Blood Count 4.38 M/UL (4.70-6.10) L Hemoglobin 12.2 G/DL (14.2-18.0) L Hematocrit 38.1 % (42.0-52.0) L Mean Corpuscular Volume 87 FL (80-99) Mean Corpuscular Hemoglobin 27.8 PG (27.0-31.0) Mean Corpuscular Hemoglobin Concent 32.0 G/DL (32.0-36.0) Red Cell Distribution Width 13.5 % (11.6-14.8) Platelet Count 191 K/UL (150-450) Mean Platelet Volume 6.0 FL (6.5-10.1) L Neutrophils (%) (Auto) 62.7 % (45.0-75.0) Lymphocytes (%) (Auto) 20.8 % (20.0-45.0) Monocytes (%) (Auto) 10.5 % (1.0-10.0) H Eosinophils (%) (Auto) 5.4 % (0.0-3.0) H Basophils (%) (Auto) 0.5 % (0.0-2.0) Sodium Level 146 MMOL/L (136-145) H Potassium Level 3.7 MMOL/L (3.5-5.1) Chloride Level 106 MMOL/L (98-107) Carbon Dioxide Level 40 MMOL/L (21-32) H Anion Gap 0 mmol/L (5-15) L Blood Urea Nitrogen 15 mg/dL (7-18) Creatinine 0.5 MG/DL (0.55-1.30) L Estimat Glomerular Filtration Rate mL/min (>60) Glucose Level 83 MG/DL (74-106) Calcium Level 9.0 MG/DL (8.5-10.1) Current Medications Medications (Trade) Dose Ordered Sig/Nkechi Route PRN Reason Start Time Stop Time Status Last Admin Dose Admin Albuterol/ Ipratropium (Albuterol/ Ipratropium) 3 ml Q4H PRN HHN dyspnea 10/22/18 20:30 10/25/18 12:16 Chlorhexidine Gluconate (Tita-Hex 2%) 1 applic DAILY@1999 TOPIC 10/22/18 20:00 11/17/18 19:59 10/23/18 20:52 Dextrose (Dextrose 50%) 25 ml Q30M PRN IV Hypoglycemia 10/22/18 20:30 11/16/18 12:16 Dextrose (Dextrose 50%) 50 ml Q30M PRN IV hypoglycemia 10/22/18 20:30 11/16/18 12:16 Heparin Sodium (Porcine) (Heparin 5000 units/ml) 5,000 units EVERY 12 HOURS SUBQ 10/22/18 21:00 11/16/18 08:59 10/24/18 09:31 Insulin Aspart (NovoLOG) BEFORE MEALS AND HS SUBQ 10/22/18 21:00 11/16/18 12:29 10/22/18 21:33 Lansoprazole (Prevacid) 30 mg Q12HR ORAL 10/22/18 21:00 11/21/18 20:59 10/24/18 09:28 Nitroglycerin (Ntg) 0.4 mg Q5M X 3 DOSES PRN SL Prn Chest Pain 10/22/18 20:00 11/16/18 12:17 Olanzapine (ZyPREXA) 2.5 mg BID ORAL 10/23/18 09:00 11/21/18 08:59 10/24/18 09:28 Ondansetron HCl (Zofran) 4 mg Q6H PRN IVP Nausea & Vomiting 10/22/18 20:30 11/21/18 20:29 Theophylline (Alex-Dur) 100 mg EVERY 12 HOURS ORAL 10/22/18 21:00 11/21/18 12:29 10/24/18 09:28 Chio Issa M.D. Oct 24, 2018 15:12
[2018-10-24 16:00] VITALS: BP 102/65
--- NOTE | 2018-10-24 19:30 | Progress Note ---
DATE: 10/24/2018 HISTORY OF PRESENT ILLNESS: This is a 73-year-old male patient with COPD exacerbation. He has altered mental status and confusion worsened by the stress of his medical illness. That is why, his attending has requested daily psychiatric consultation at this time. MENTAL STATUS EXAMINATION: This is a 73-year-old male. Appearance is disheveled. Attitude, irritable and agitated. Affect, guarded and restricted. Intellect poor. Mood, depressed and anxious. Motor activity, psychomotor agitation. Attention span is poor. Orientation x2. Speech is pressured. Thought process, disorganized and illogical. Thought content, auditory hallucinations and paranoid delusions. Insight and judgment is poor. DIAGNOSIS: Paranoid schizophrenia with acute exacerbation. PLAN: Plan is to treatment him with Zyprexa 2.5 mg twice a day. Provide him with 20 minutes of cognitive behavioral therapy to help identify his automatic negative thoughts and helped him to convert those negative thoughts to more positive thoughts to reduce depression, anxiety, and suicidality. Chart reviewed. Discussed with staff. Luda Barksdale M.D. DR: PAVEL JOB#: [id number] CC:
[2018-10-24 20:00] VITALS: BP 114/63
[2018-10-24] MEDS: Dyna-Hex 2% Top Sol 2oz TOPIC SCH (20:00)
[2018-10-25 04:00] VITALS: BP 100/61
[2018-10-25] MEDS: NovoLOG Insulin Flexpen SUBQ SCH ×2 (06:30→11:11)
[2018-10-25 08:00] VITALS: BP 120/62
[2018-10-25] MEDS: Theophylline ER 100mg ORAL SCH (09:00)
[2018-10-25] MEDS: OLANZapine 2.5mg tab ORAL SCH (09:00)
[2018-10-25] MEDS: Heparin 5000 units/ml inj SUBQ SCH (09:00)
[2018-10-25 10:52] LABS: BASOPHILS % (AUTO) 0.7 % (0.0-2.0); EOSINOPHILS % (AUTO) 6.4 % (0.0-3.0); HEMATOCRIT 35.4 % (42.0-52.0); HEMOGLOBIN 11.2 G/DL (14.2-18.0); LYMPHOCYTES % (AUTO) 14.3 % (20.0-45.0); MEAN CORPUSCULAR VOLUME 88 FL (80-99); MONOCYTES % (AUTO) 9.4 % (1.0-10.0); NEUTROPHILS % (AUTO) 69.2 % (45.0-75.0); PLATELET COUNT 188 K/UL (150-450); RED BLOOD COUNT 4.04 M/UL (4.70-6.10); RED CELL DISTRIBUTION WIDTH 13.7 % (11.6-14.8); WHITE BLOOD COUNT 7.9 K/UL (4.8-10.8)
[2018-10-25 11:15] LABS: BLOOD UREA NITROGEN 12 mg/dL (7-18); CALCIUM 8.9 MG/DL (8.5-10.1); CHLORIDE 104 MMOL/L (98-107); CREATININE 0.6 MG/DL (0.55-1.30); POTASSIUM 3.5 MMOL/L (3.5-5.1); SODIUM 143 MMOL/L (136-145)
[2018-10-25 11:16] LABS: CARBON DIOXIDE 42 MMOL/L (21-32)
[2018-10-25 12:00] VITALS: BP 120/64
--- NOTE | 2018-10-25 12:30 | Infectious Diseases Prog Note ---
Assessment/Plan Assessment/Plan Assessment: Acute hypoxic respiratory s/p intubation 10/17; extubated 10/19 COPD exacerbation- no evidence of PNA. -influenza sc neg -sp cx Normal lesli -CXR: Hyperinflation, as in COPD, unchanged over one day. No acute process. Afebrile No leukocytosis -Bcx neg schizophrenia emphysema/COPD blindness PVD HLD PNA GERD SNF resident VRE colonized Plan: -Continue to monitor off abx -ok to discharge to SNF -10/22 SP LEvaquin #6 -10/18 SP Tamiflu #2 -10/17 SP Zosyn #1, Unasyn x1 -f/u cx -Monitor CBC/CMP, temperatures -Aspiration precautions Thank you for this consultation. Will continue to follow along with you. Discussed with RN. Subjective Allergies: Coded Allergies: No Known Allergies (Verified , 11/08/11) Subjective afebrile at 2l NC off abx Objective Vital Signs Last 24 Hour Vital Signs Date Time Temp Pulse Resp B/P (MAP) Pulse Ox O2 Delivery O2 Flow Rate FiO2 10/25/18 09:10 Nasal Cannula 2.0 28 10/25/18 09:09 97 Nasal Cannula 2.0 28 10/25/18 09:00 Nasal Cannula 2.0 10/25/18 08:00 97.0 66 18 120/62 (81) 98 10/25/18 04:00 97.8 63 20 100/61 (74) 97 10/25/18 00:00 19 10/24/18 21:00 Nasal Cannula 2.0 10/24/18 20:00 96.8 60 20 114/63 (80) 99 10/24/18 19:00 70 16 Nasal Cannula 2.0 28 10/24/18 19:00 Nasal Cannula 2.0 28 10/24/18 19:00 94 Nasal Cannula 2.0 28 10/24/18 16:00 97.7 65 18 102/65 (77) 97 Height (Feet): 5 Height (Inches): 11.00 Weight (Pounds): 134 Objective General Appearance: severe distress, cachetic, Chronically Ill Neck: limited range of motion Respiratory: decreased breath sounds, wheezing Cardiovascular #1: normal peripheral pulses, regular rate, rhythm, no edema Gastrointestinal: normal inspection Neurologic: normal inspection, alert, oriented x3 Skin: normal inspection Laboratory Tests Test 10/25/18 10:40 White Blood Count 7.9 K/UL (4.8-10.8) Red Blood Count 4.04 M/UL (4.70-6.10) L Hemoglobin 11.2 G/DL (14.2-18.0) L Hematocrit 35.4 % (42.0-52.0) L Mean Corpuscular Volume 88 FL (80-99) Mean Corpuscular Hemoglobin 27.8 PG (27.0-31.0) Mean Corpuscular Hemoglobin Concent 31.8 G/DL (32.0-36.0) L Red Cell Distribution Width 13.7 % (11.6-14.8) Platelet Count 188 K/UL (150-450) Mean Platelet Volume 5.8 FL (6.5-10.1) L Neutrophils (%) (Auto) 69.2 % (45.0-75.0) Lymphocytes (%) (Auto) 14.3 % (20.0-45.0) L Monocytes (%) (Auto) 9.4 % (1.0-10.0) Eosinophils (%) (Auto) 6.4 % (0.0-3.0) H Basophils (%) (Auto) 0.7 % (0.0-2.0) Sodium Level 143 MMOL/L (136-145) Potassium Level 3.5 MMOL/L (3.5-5.1) Chloride Level 104 MMOL/L (98-107) Carbon Dioxide Level 42 MMOL/L (21-32) *H Blood Urea Nitrogen 12 mg/dL (7-18) Creatinine 0.6 MG/DL (0.55-1.30) Estimat Glomerular Filtration Rate mL/min (>60) Glucose Level 229 MG/DL (74-106) #H Calcium Level 8.9 MG/DL (8.5-10.1) Current Medications Medications (Trade) Dose Ordered Sig/Nkechi Route PRN Reason Start Time Stop Time Status Last Admin Dose Admin Dextrose (Dextrose 50%) 25 ml Q30M PRN IV Hypoglycemia 10/22/18 20:30 11/16/18 12:16 Dextrose (Dextrose 50%) 50 ml Q30M PRN IV hypoglycemia 10/22/18 20:30 11/16/18 12:16 Heparin Sodium (Porcine) (Heparin 5000 units/ml) 5,000 units EVERY 12 HOURS SUBQ 10/22/18 21:00 11/16/18 08:59 10/24/18 09:31 Insulin Aspart (NovoLOG) BEFORE MEALS AND HS SUBQ 10/22/18 21:00 11/16/18 12:29 10/25/18 11:11 Lansoprazole (Prevacid) 30 mg Q12HR ORAL 10/22/18 21:00 11/21/18 20:59 10/24/18 09:28 Nitroglycerin (Ntg) 0.4 mg Q5M X 3 DOSES PRN SL Prn Chest Pain 10/22/18 20:00 11/16/18 12:17 Olanzapine (ZyPREXA) 2.5 mg BID ORAL 10/23/18 09:00 11/21/18 08:59 10/24/18 17:29 Ondansetron HCl (Zofran) 4 mg Q6H PRN IVP Nausea & Vomiting 10/22/18 20:30 11/21/18 20:29 Theophylline (Alex-Dur) 100 mg EVERY 12 HOURS ORAL 10/22/18 21:00 11/21/18 12:29 10/24/18 09:28 Chio Issa M.D. Oct 25, 2018 12:30
--- NOTE | 2018-10-25 12:37 | General Progress Note ---
Assessment/Plan Problem List: (1) Sepsis ICD Codes: A41.9 - Sepsis, unspecified organism SNOMED: 22991226 (2) COPD (chronic obstructive pulmonary disease) ICD Codes: J44.9 - Chronic obstructive pulmonary disease, unspecified SNOMED: 16081924 (3) Psychoses ICD Codes: F29 - Unspecified psychosis not due to a substance or known physiological condition SNOMED: 50783561 (4) Protein-calorie malnutrition, severe ICD Codes: E43 - Unspecified severe protein-calorie malnutrition SNOMED: 028115452 (5) Acute respiratory failure ICD Codes: J96.00 - Acute respiratory failure, unspecified whether with hypoxia or hypercapnia SNOMED: 54321120 Status: stable, progressing Assessment/Plan o2 pulm tx abx cbc bmp am dc to snf if clear Subjective Constitutional: Reports: weakness Allergies: Coded Allergies: No Known Allergies (Verified , 11/08/11) All Systems: reviewed and negative except above Subjective o2nc sleepy Objective Last 24 Hour Vital Signs Date Time Temp Pulse Resp B/P (MAP) Pulse Ox O2 Delivery O2 Flow Rate FiO2 10/25/18 09:10 Nasal Cannula 2.0 28 10/25/18 09:09 97 Nasal Cannula 2.0 28 10/25/18 09:00 Nasal Cannula 2.0 10/25/18 08:00 97.0 66 18 120/62 (81) 98 10/25/18 04:00 97.8 63 20 100/61 (74) 97 10/25/18 00:00 19 10/24/18 21:00 Nasal Cannula 2.0 10/24/18 20:00 96.8 60 20 114/63 (80) 99 10/24/18 19:00 70 16 Nasal Cannula 2.0 28 10/24/18 19:00 Nasal Cannula 2.0 28 10/24/18 19:00 94 Nasal Cannula 2.0 28 10/24/18 16:00 97.7 65 18 102/65 (77) 97 Intake and Output 10/24/18 10/25/18 19:00 07:00 Intake Total 360 ml Output Total 400 ml 550 ml Balance -40 ml -550 ml Intake Oral 360 ml Output Urine Total 400 ml 550 ml Laboratory Tests 10/25/18 10:40: White Blood Count 7.9, Red Blood Count 4.04L, Hemoglobin 11.2L, Hematocrit 35.4L , Mean Corpuscular Volume 88, Mean Corpuscular Hemoglobin 27.8, Mean Corpuscular Hemoglobin Concent 31.8L, Red Cell Distribution Width 13.7, Platelet Count 188, Mean Platelet Volume 5.8L, Neutrophils (%) (Auto) 69.2, Lymphocytes (%) (Auto) 14.3L, Monocytes (%) (Auto) 9.4, Eosinophils (%) (Auto) 6.4H, Basophils (%) (Auto) 0.7, Sodium Level 143, Potassium Level 3.5, Chloride Level 104, Carbon Dioxide Level 42*H, Blood Urea Nitrogen 12, Creatinine 0.6, Estimat Glomerular Filtration Rate , Glucose Level 229#H, Calcium Level 8.9 Height (Feet): 5 Height (Inches): 11.00 Weight (Pounds): 134 General Appearance: lethargic EENT: normal ENT inspection Neck: normal alignment Cardiovascular: normal peripheral pulses, normal rate, regular rhythm Respiratory/Chest: chest wall non-tender, lungs clear, normal breath sounds Abdomen: normal bowel sounds, non tender, soft Extremities: normal inspection Edema: no edema noted Arm (L), no edema noted Arm (R), no edema noted Leg (L), no edema noted Leg (R), no edema noted Pedal (L), no edema noted Pedal (R), no edema noted Generalized Neurologic: motor weakness Skin: normal pigmentation, warm/dry Bob Church DO Oct 25, 2018 12:37
--- NOTE | 2018-10-25 13:18 | Pulmonology Progress Note ---
Assessment/Plan Problems: (1) Acute respiratory failure (2) COPD (chronic obstructive pulmonary disease) (3) Protein-calorie malnutrition, severe (4) Psychoses Assessment/Plan improving dc steroids start theophyline heart rate better, at 70's med/surg dc planning soon Subjective ROS Limited/Unobtainable: Yes Constitutional: Reports: no symptoms HEENT: Repors: no symptoms Allergies: Coded Allergies: No Known Allergies (Verified , 11/08/11) Objective Last 24 Hour Vital Signs Date Time Temp Pulse Resp B/P (MAP) Pulse Ox O2 Delivery O2 Flow Rate FiO2 10/25/18 09:10 Nasal Cannula 2.0 28 10/25/18 09:09 97 Nasal Cannula 2.0 28 10/25/18 09:00 Nasal Cannula 2.0 10/25/18 08:00 97.0 66 18 120/62 (81) 98 10/25/18 04:00 97.8 63 20 100/61 (74) 97 10/25/18 00:00 19 10/24/18 21:00 Nasal Cannula 2.0 10/24/18 20:00 96.8 60 20 114/63 (80) 99 10/24/18 19:00 70 16 Nasal Cannula 2.0 28 10/24/18 19:00 Nasal Cannula 2.0 28 10/24/18 19:00 94 Nasal Cannula 2.0 28 10/24/18 16:00 97.7 65 18 102/65 (77) 97 Intake and Output 10/24/18 10/25/18 19:00 07:00 Intake Total 360 ml Output Total 400 ml 550 ml Balance -40 ml -550 ml Intake Oral 360 ml Output Urine Total 400 ml 550 ml Objective General Appearance: WD/WN HEENT: normocephalic, anicteric Respiratory/Chest: chest wall non-tender, lungs clear Cardiovascular: normal peripheral pulses, normal rate Abdomen: normal bowel sounds, no organomegaly Genitourinary: normal external genitalia Skin: no rash Laboratory Tests 10/25/18 10:40: White Blood Count 7.9, Red Blood Count 4.04L, Hemoglobin 11.2L, Hematocrit 35.4L , Mean Corpuscular Volume 88, Mean Corpuscular Hemoglobin 27.8, Mean Corpuscular Hemoglobin Concent 31.8L, Red Cell Distribution Width 13.7, Platelet Count 188, Mean Platelet Volume 5.8L, Neutrophils (%) (Auto) 69.2, Lymphocytes (%) (Auto) 14.3L, Monocytes (%) (Auto) 9.4, Eosinophils (%) (Auto) 6.4H, Basophils (%) (Auto) 0.7, Sodium Level 143, Potassium Level 3.5, Chloride Level 104, Carbon Dioxide Level 42*H, Blood Urea Nitrogen 12, Creatinine 0.6, Estimat Glomerular Filtration Rate , Glucose Level 229#H, Calcium Level 8.9 Current Medications Medications (Trade) Dose Ordered Sig/Nkechi Route PRN Reason Start Time Stop Time Status Last Admin Dose Admin Dextrose (Dextrose 50%) 25 ml Q30M PRN IV Hypoglycemia 10/22/18 20:30 11/16/18 12:16 Dextrose (Dextrose 50%) 50 ml Q30M PRN IV hypoglycemia 10/22/18 20:30 11/16/18 12:16 Heparin Sodium (Porcine) (Heparin 5000 units/ml) 5,000 units EVERY 12 HOURS SUBQ 10/22/18 21:00 11/16/18 08:59 10/24/18 09:31 Insulin Aspart (NovoLOG) BEFORE MEALS AND HS SUBQ 10/22/18 21:00 11/16/18 12:29 10/25/18 11:11 Lansoprazole (Prevacid) 30 mg Q12HR ORAL 10/22/18 21:00 11/21/18 20:59 10/24/18 09:28 Nitroglycerin (Ntg) 0.4 mg Q5M X 3 DOSES PRN SL Prn Chest Pain 10/22/18 20:00 11/16/18 12:17 Olanzapine (ZyPREXA) 2.5 mg BID ORAL 10/23/18 09:00 11/21/18 08:59 10/24/18 17:29 Ondansetron HCl (Zofran) 4 mg Q6H PRN IVP Nausea & Vomiting 10/22/18 20:30 11/21/18 20:29 Theophylline (Alex-Dur) 100 mg EVERY 12 HOURS ORAL 10/22/18 21:00 11/21/18 12:29 10/24/18 09:28 Melquiades Junior MD Oct 25, 2018 13:18
--- NOTE | 2018-10-25 15:30 | Progress Note ---
DATE: 10/25/2018 HISTORY OF PRESENT ILLNESS: The patient is a 73-year-old patient with COPD exacerbation. This patient has altered mental status and confusion, disorganized is thought process worsened by stress of his medical illness that is why his attending physician has requested daily psychiatric consultation. assessed this patient at bedside. The patient continues to have some confusion, some disorganized thought process, mood lability worsened by stress of his medical illness that is why attending has requested daily psychiatric consultation MENTAL STATUS EXAMINATION: The patient is a 73-year-old male. Appearance is disheveled. Attitude, irritable and agitated. Affect guarded and restricted. Intellect poor. Mood depressed and anxious. Motor activity psychomotor agitation. Attention span is poor. Orientation x2. Speech is pressured. Thought process is disorganized and logical. Thought content, auditory hallucinations and paranoid delusions. Insight and judgment is poor. DIAGNOSIS: Paranoid schizophrenia, rule out depression with psychotic features. PLAN: Treat him with Zyprexa 2.5 mg twice a day, Ativan 2 mg IV q.4 hours p.r.n. anxiety and agitation. Provide this patient with 20 minutes of cognitive behavior therapy to help him identify automatic negative thoughts and help him to convert those to more positive thinking in order to reduce depression, anxiety, and suicidality and also to help him to convert his behavior to more adaptive behavioral pattern. Chart reviewed. Discussed with staff. Seen and assessed in his room. A 20 minutes of cognitive behavior therapy provided. Luda Barksdale M.D. DR: Chandra JOB#: [id number] CC:
--- NOTE | 2018-10-25 20:16 | Cardiology Report ---
APPROVED REPORT EKG Measurement Heart [id number] Sinus bradycardia with short OR Right superior axis deviation Incomplete right bundle branch block Right ventricular hypertrophy with repolarization abnormality Anteroseptal infarct, age undetermined Abnormal ECG
--- NOTE | 2018-10-25 22:45 | Cardiology Progress Note ---
Assessment/Plan Assessment/Plan 1. Hypercapnic hypoxic respiratory failure, resolved, most likely secondary to acute exacerbation of COPD, LVEF at 65% with normal intra-cardiac filling pressure. 2. Hypotension, resolved, continue hydration. 3. Moderate pulmonary HTN likely due to COPD. Subjective Subjective No cardiac events. On NC oxygen. Objective Last 24 Hour Vital Signs Date Time Temp Pulse Resp B/P (MAP) Pulse Ox O2 Delivery O2 Flow Rate FiO2 10/25/18 12:00 98.1 61 18 120/64 (82) 99 10/25/18 09:10 Nasal Cannula 2.0 28 10/25/18 09:09 97 Nasal Cannula 2.0 28 10/25/18 09:00 Nasal Cannula 2.0 10/25/18 08:00 97.0 66 18 120/62 (81) 98 10/25/18 04:00 97.8 63 20 100/61 (74) 97 10/25/18 00:00 19 Intake and Output 10/24/18 10/25/18 19:00 07:00 Intake Total 360 ml Output Total 400 ml 550 ml Balance -40 ml -550 ml Intake Oral 360 ml Output Urine Total 400 ml 550 ml 2D Echo: LVEF 65%, Mild LVH, Grade I LVDD, RVSP 51 mmHg c/w moderate pul HTN Laboratory Tests Test 10/25/18 10:40 White Blood Count 7.9 K/UL (4.8-10.8) Red Blood Count 4.04 M/UL (4.70-6.10) L Hemoglobin 11.2 G/DL (14.2-18.0) L Hematocrit 35.4 % (42.0-52.0) L Mean Corpuscular Volume 88 FL (80-99) Mean Corpuscular Hemoglobin 27.8 PG (27.0-31.0) Mean Corpuscular Hemoglobin Concent 31.8 G/DL (32.0-36.0) L Red Cell Distribution Width 13.7 % (11.6-14.8) Platelet Count 188 K/UL (150-450) Mean Platelet Volume 5.8 FL (6.5-10.1) L Neutrophils (%) (Auto) 69.2 % (45.0-75.0) Lymphocytes (%) (Auto) 14.3 % (20.0-45.0) L Monocytes (%) (Auto) 9.4 % (1.0-10.0) Eosinophils (%) (Auto) 6.4 % (0.0-3.0) H Basophils (%) (Auto) 0.7 % (0.0-2.0) Sodium Level 143 MMOL/L (136-145) Potassium Level 3.5 MMOL/L (3.5-5.1) Chloride Level 104 MMOL/L (98-107) Carbon Dioxide Level 42 MMOL/L (21-32) *H Blood Urea Nitrogen 12 mg/dL (7-18) Creatinine 0.6 MG/DL (0.55-1.30) Estimat Glomerular Filtration Rate mL/min (>60) Glucose Level 229 MG/DL (74-106) #H Calcium Level 8.9 MG/DL (8.5-10.1) Objective HEENT: Atraumatic and normocephalic. Anicteric. Bitemporal wasting. NECK: JVP is <5cm, No carotid bruit. CVS: Normal S1 and S2. Regular rate and rhythm. No murmurs, gallops, or rubs. Distant heart sounds. PMI is at fourth intercostal space in midclavicular line. LUNGS: Diminished breath sounds throughout both lungs. ABDOMEN: Soft, nontender, and nondistended. No hepatosplenomegaly. Positive bowel sounds. EXTREMITIES: No evidence of edema, clubbing, or cyanosis. Toby Sy MD Oct 25, 2018 22:45
--- NOTE | 2018-10-26 02:30 | Progress Note ---
DATE: 10/24/2018 PSYCHOTHERAPY CONSULTATION PROGRESS NOTE: TREATING ATTENDING PHYSICIAN: Bob Church D.O. HISTORY OF PRESENT ILLNESS: The patient is a 73-year-old male. The patient continues to remain very restless, confused, disorganized. Thought process, poor frustration tolerance and continues to remain disorganized and confused. The patient is a poor historian. MENTAL STATUS EXAMINATION: The patient is alert and oriented to person. Mood is dysphoric. Affect is . Thought process, poor frustration tolerance. Poor insight, judgment, impulse control. PLAN: Provided the patient with reality orientation . The patient is confused and disoriented. Oriented to person, place, time and situation. . The patient has supportive psychotherapy . The patient does have a history of schizophrenia, continues management. This clinician has reviewed the patient's chart. Discussed the treatment with treatment team . Chrissy Hinton PsyD. DR: SOWMYA JOB#: [id number] CC:
--- NOTE | 2018-10-26 12:54 | Discharge Summary ---
Discharge Summary Discharge Summary _ DATE OF ADMISSION: 10/17/2018 DATE OF DISCHARGE: 10/25/2018 CONSULTANTS: Eladio Myrick Dr., Dr., Dr., Dr. BRIEF HOSPITAL COURSE: Patient is a 73-year-old female, from [facility], presented to ED for increased shortness of breath for 2 days and low oxygen saturation as well as low blood pressure. She was reported to be less responsive than normal. She was noted to have oxygen saturation in the 50s. She has medical history significant for anemia, peripheral vascular disease, hyperlipidemia, schizophrenia, GERD and COPD. On evaluation at ED, patient was noted to be hypoxemic. Oxygen saturation was in the 80's on 3 L nasal cannula. Blood work did not show any leukocytosis, hemoglobin and hematocrit were stable. BUN was elevated to 28 with normal creatinine. Troponin was negative. Head CT was negative for acute intracranial bleed, mass effect or edema. She had an ABG that showed CO2 retention. She did not improve on BiPAP. She was then orally intubated. Central venous catheter was placed on the right internal jugular vein. She was then admitted to ICU for respiratory failure. Dr. Melquiades Junior was consulted. Patient was hooked on mechanical ventilator. ID was consulted. Zosyn was switched to Levaquin. She was eventually started on empiric Tamiflu treatment for possible influenza. Cardiac evaluation was done. Echocardiogram done showed left ventricular ejection fraction 65% with normal intracardial filling pressure. Dyspnea was assessed to be secondary to COPD. She self extubated on 10/19/2018. She was placed on high flow nasal cannula. She was started on diet. Influenza screen was negative. Sputum culture showed normal upper respiratory lesli. Blood culture did not isolate any growth. Tamiflu was discontinued. O2 requirement was tapered down. Steroids were discontinued. She was eventually started on theophylline. She was evaluated by psychiatrist. She was diagnosed with paranoid schizophrenia with acute exacerbation and was given Zyprexa, and Ativan. She completed IV antibiotic treatment and was observed off antibiotics. She was eventually discharged back to SNF. FINAL DIAGNOSES: Acute Hypercapnic hypoxic respiratory failure, resolved, most likely secondary to acute exacerbation of COPD Moderate pulmonary hypertension Severe protein calorie malnutrition Paranoid schizophrenia Peripheral vascular disease Hyperlipidemia GERD [facility] resident DISPOSITION: Patient was discharged to [facility]. DISCHARGE MEDICATIONS: Refer to Discharge Medication List. I have been assigned to dictate discharge summary on this account, and I was not involved in the patient's management. Viri Ellis NP Oct 26, 2018 12:54
== END 2018-10-25 16:18 | DRG 871 ==
LOC: EDBD 02:26 → EMR 02:42 → EDBEDREQSVC 04:09 → EDBEDREQ 04:09 → ICU 04:12 → EDBEDREQ 04:52 → 2W 10-20 15:03 → 2E 10-21 11:45 → 4E 10-22 17:58
DX: A41.9 Sepsis, unspecified organism (principal); E43 Unspecified severe protein-calorie malnutrition; R65.21 Severe sepsis with septic shock; J96.02 Acute respiratory failure with hypercapnia; J96.01 Acute respiratory failure with hypoxia; J44.1 Chronic obstructive pulmonary disease with (acute) exacerbation; Z68.1 Body mass index [BMI] 19.9 or less, adult; N39.0 Urinary tract infection, site not specified; F32.3 Major depressive disorder, single episode, severe with psychotic features; F25.0 Schizoaffective disorder, bipolar type; H54.8 Legal blindness, as defined in USA; I73.9 Peripheral vascular disease, unspecified; I27.20 Pulmonary hypertension, unspecified
CPT/HCPCS: 36415; 36600; 70450; 71045; 74018; 80048; 80053; 81003; 82550; 82553; 82803; 82962; 83605; 83735; 83880; 84100; 84484; 85025; 85651; 86140; 86710; 87040; 87070; 87081; 87205; 93005; 93306; 94002; 94003; 94664; 94760; 96361; 96365; 96375; 99291; C9399; J1815